=== PATIENT | male | born 1935 | race Caucasian/White ===

== ENCOUNTER 2024-01-14 21:59 | Inpatient (IN) | payer MEDICARE, OTHER ==
--- NOTE | 2024-01-14 22:42 | ED ---
General Adult HPI - General Chief complaint: Shortness of Breath Stated complaint: CHF Time Seen by Provider: 01/14/24 22:25 Source: patient, EMS, RN notes reviewed, old records reviewed Mode of arrival: EMS - History of Present Illness Initial comments: Is a 89-year-old male who presents emergency department as a transfer from [facility] over concern for new onset congestive heart failure. Past medical history includes hypertension, prior CVA, hyper cholesterolemia. Has been having progressive shortness of breath with lower extremity edema and worsening exertional dyspnea for the last 2 months. Worsened over the last few days. Denies any significant orthopnea or PND. Was evaluated at the [place] clinic who sent him to [facility] who diagnosed him with CHF exacerbation. CT of the chest was done to evaluate for PE which was negative for PE. BNP was elevated at the outside facility as well as minimal troponin elevation of 0.08. Presents for further evaluation at this time. Patient denies chest pain. Denies shortness of breath at rest. Does endorse lower extremity edema. Delgado catheter was placed at outside facility and patient initiated on Lasix. He also received aspirin already. Otherwise is resting comfortably in bed at this time. Denies any fevers, cough, chest pain. Presents for further evaluation. - Related Data Allergies Allergy/AdvReac Type Severity Reaction Status Date / Time No Known Allergies Allergy Verified 01/14/24 22:46 Review of Systems ROS Statement: Those systems with pertinent positive or pertinent negative responses have been documented in the HPI. Review of Systems: CONST: Denies fever EYES: Denies blurry vision ENT: Denies nasal congestion C/V: Denies Chest pain RESP: Endorses exertional dyspnea GI: Denies abdominal pain : Denies dysuria SKIN: Denies rash. MSK: Denies joint pain. NEURO: Denies headache ROS Other: All systems not noted in ROS Statement are negative. General Exam - General Exam Comments Initial Comments: General: Appears in no acute distress. HEAD: Normal with no signs of head trauma. EYES: PERRLA, EOMI, conjunctiva normal, no discharge. ENT: Hearing grossly intact, normal oropharynx. RESPIRATORY: Relatively clear breath sounds bilaterally with no obvious rhonchi or wheeze. No significant hypoxia. No significant increased work of breathing. C/V: Regular rate and rhythm. S1 and S2 auscultated, metrical lower extremity pitting edema., peripheral pulses 2+ and intact throughout ABD: Abd is soft, nontender, nondistended EXT: Normal range of motion, no obvious deformity SKIN: No rashes or lesions observed on exposed skin. NEURO: Alert and oriented x 4. Course Vital Signs 01/14/24 01/14/24 22:01 23:06 Temperature 97 F L Pulse Rate 77 72 Respiratory 18 18 Rate Blood Pressure 134/100 136/71 O2 Sat by Pulse 94 L 94 L Oximetry Medical Decision Making - Medical Decision Making Was pt. sent in by a medical professional or institution (, PA, [employer], urgent care, hospital, or [place] health care facility...) When possible be specific @ -Transferred from [facility] ER for cardiology evaluation. Did you speak to anyone other than the patient for history (EMS, parent, family, police, friend...)? What history was obtained from this source @ -No Did you review nursing and triage notes (agree or disagree)? Why? @ -I reviewed and agree with nursing and triage notes Were old charts reviewed (outside hosp., previous admission, EMS record, old EKG, old radiological studies, urgent care reports/EKG's, [place] health [place] facility records)? Report findings @ -Chart reviewed from [facility] including results of workup. CT done at outside facility negative for PE. Does show pulmonary vascular congestion. BNP elevated. Troponin minimally elevated. Differential Diagnosis (chest pain, altered mental status, abdominal pain women, abdominal pain men, vaginal bleeding, weakness, fever, dyspnea, syncope, headache, dizziness, GI bleed, back pain, seizure, CVA, palpatations, mental health, musculoskeletal)? @ -Differential Dyspnea: Coronary syndrome, arrhythmia, tamponade, asthma, COPD, pulmonary embolism, pneumonia, pneumothorax, pulmonary effusion, anaphylaxis, diabetic ketoacidosis, flailed chest, pulmonary contusion, diaphragmatic rupture, anemia, neuromuscular, this is not meant to be an all-inclusive list. EKG interpreted by me (3pts min.). @ -As above X-rays interpreted by me (1pt min.). @ -Chest x-ray shows bilateral pulmonary vascular congestion concerning for CHF CT interpreted by me (1pt min.). @ -None done U/S interpreted by me (1pt. min.). @ -None done What testing was considered but not performed or refused? (CT, X-rays, U/S, labs)? Why? @ -None What meds were considered but not given or refused? Why? @ -Considered aspirin however patient already received 324 mg the other hospital. Did you discuss the management of the patient with other professionals (professionals i.e. , PA, [employer], lab, RT, psych nurse, social service worker, head of merchandise buying, teacher, radio division officer, family caseworker)? Give summary @ -Discussed with the admitting provider Dr. Krueger who accepted the admission. Was smoking cessation discussed for >3mins.? @ -No Was critical care preformed (if so, how long)? @ -No Were there social determinants of health that impacted care today? How? (Homelessness, low income, unemployed, alcoholism, drug addiction, transportation, low edu. Level, literacy, decrease access to med. care, longterm, rehab)? @ -No Was there de-escalation of care discussed even if they declined (Discuss DNR or withdrawal of care, Hospice)? DNR status @ -No What co-morbidities impacted this encounter? (DM, HTN, Smoking, COPD, CAD, Cancer, CVA, ARF, Chemo, Hep., AIDS, mental health diagnosis, sleep apnea, morbid obesity)? @ -None Was patient admitted / discharged? Hospital course, mention meds given and route, prescriptions, significant lab abnormalities, going to OR and other pertinent info. @ -Based on patient's presentation and physical exam, transferred here for CHF that is new onset. I agree with this assessment. We will repeat labs but admit the patient for cardiology evaluation. Labs repeated and revealed elevated BNP of 16,000 as well as elevated troponin of 0.056 likely secondary to CHF. Will c ontinue to trend as patient has no active chest pain. EKG shows no obvious ST segment elevations. Patient already received aspirin. We will continue with IV Lasix administration. Chest x-ray does reveal bilateral pulmonary vascular congestion. Vital signs remained within acceptable limits. He will be admitted at this time. Echo ordered. Cardiology consulted. Will trend the troponin. I spoke with the admitting provider, city call Dr. Krueger who accepted the admission. Undiagnosed new problem with uncertain prognosis? @ -No Drug Therapy requiring intensive monitoring for toxicity (Heparin, Nitro, Insulin, Cardizem)? @ -No Were any procedures done? @ -No Diagnosis/symptom? @ -New onset CHF, elevated troponin Acute, or Chronic, or Acute on Chronic? @ -Acute Uncomplicated (without systemic symptoms) or Complicated (systemic symptoms)? @ -Complicated Side effects of treatment? @ -No Exacerbation, Progression, or Severe Exacerbation? @ -No Poses a threat to life or bodily function? How? (Chest pain, [place], [place], pneumonia, PE, COPD, DKA, ARF, appy, cholecystitis, CVA, Diverticulitis, Homicidal, Suicidal, threat to staff... and all critical care pts) @ -Yes - Lab Data Result diagrams: 01/14/24 22:15 01/14/24 22:15 Lab Results 01/14/24 01/14/24 01/14/24 Range/Units 22:15 22:15 22:15 WBC 8.8 (3.8-10.6) k/uL RBC 4.95 (4.30-5.90) m/uL Hgb 14.9 (13.0-17.5) gm/dL Hct 45.8 (39.0-53.0) % MCV 92.5 (80.0-100.0) fL MCH 30.1 (25.0-35.0) pg MCHC 32.5 (31.0-37.0) g/dL RDW 13.7 (11.5-15.5) % Plt Count 191 (150-450) k/uL MPV 8.9 Neutrophils % 72 % Lymphocytes % 14 % Monocytes % 8 % Eosinophils % 4 % Basophils % 1 % Neutrophils # 6.3 (1.3-7.7) k/uL Lymphocytes # 1.2 (1.0-4.8) k/uL Monocytes # 0.7 (0-1.0) k/uL Eosinophils # 0.4 (0-0.7) k/uL Basophils # 0.1 (0-0.2) k/uL PT 10.9 (10.0-12.5) sec INR 1.0 (<1.2) APTT 23.3 (22.0-30.0) sec Sodium 136 L (137-145) mmol/L Potassium 4.7 (3.5-5.1) mmol/L Chloride 109 H (98-107) mmol/L Carbon Dioxide 18 L (22-30) mmol/L Anion Gap 9 mmol/L BUN 23 H (9-20) mg/dL Creatinine 1.32 H (0.66-1.25) mg/dL Est GFR (CKD-EPI)AfAm 56 (>60 ml/min/1.73 sqM) Est GFR (CKD-EPI)NonAf 48 (>60 ml/min/1.73 sqM) Glucose 100 H (74-99) mg/dL Plasma Lactic Acid Christian (0.7-2.0) mmol/L Calcium 9.3 (8.4-10.2) mg/dL Magnesium 2.0 (1.6-2.3) mg/dL Total Bilirubin 1.3 (0.2-1.3) mg/dL AST 26 (17-59) U/L ALT 16 (4-49) U/L Alkaline Phosphatase 73 (38-126) U/L Troponin I (0.000-0.034) ng/mL NT-Pro-B Natriuret Pep 37718 pg/mL Total Protein 6.8 (6.3-8.2) g/dL Albumin 4.0 (3.5-5.0) g/dL 01/14/24 01/14/24 Range/Units 22:15 22:15 WBC (3.8-10.6) k/uL RBC (4.30-5.90) m/uL Hgb (13.0-17.5) gm/dL Hct (39.0-53.0) % MCV (80.0-100.0) fL MCH (25.0-35.0) pg MCHC (31.0-37.0) g/dL RDW (11.5-15.5) % Plt Count (150-450) k/uL MPV Neutrophils % % Lymphocytes % % Monocytes % % Eosinophils % % Basophils % % Neutrophils # (1.3-7.7) k/uL Lymphocytes # (1.0-4.8) k/uL Monocytes # (0-1.0) k/uL Eosinophils # (0-0.7) k/uL Basophils # (0-0.2) k/uL PT (10.0-12.5) sec INR (<1.2) APTT (22.0-30.0) sec Sodium (137-145) mmol/L Potassium (3.5-5.1) mmol/L Chloride (98-107) mmol/L Carbon Dioxide (22-30) mmol/L Anion Gap mmol/L BUN (9-20) mg/dL Creatinine (0.66-1.25) mg/dL Est GFR (CKD-EPI)AfAm (>60 ml/min/1.73 sqM) Est GFR (CKD-EPI)NonAf (>60 ml/min/1.73 sqM) Glucose (74-99) mg/dL Plasma Lactic Acid Christian 1.4 (0.7-2.0) mmol/L Calcium (8.4-10.2) mg/dL Magnesium (1.6-2.3) mg/dL Total Bilirubin (0.2-1.3) mg/dL AST (17-59) U/L ALT (4-49) U/L Alkaline Phosphatase (38-126) U/L Troponin I 0.056 H* (0.000-0.034) ng/mL NT-Pro-B Natriuret Pep pg/mL Total Protein (6.3-8.2) g/dL Albumin (3.5-5.0) g/dL - EKG Data -: EKG Interpreted by Me EKG Comments: 12-lead Electrocardiogram Interpretation Note EKG was reviewed and interpreted by myself. 12-lead ECG performed at 2205 is interpreted by me as revealing normal sinus rhythm at a rate of 77 beats per minute. Mccl[place] is normal. [place] interval is 195 ms, QRS duration is 114 ms, QTc is 396 ms. T wave inversion seen in leads II, III, aVF. Nonspecific ST segment Amryt malady also seen in the lateral precordial leads. [facility]... R wave progression across the precordium was satisfactory. Disposition Clinical Impression: Congestive heart failure, Elevated troponin Disposition: ADMITTED IP TO THIS HOSP Condition: Stable Referrals: Sue Mosqeura, PAC [Primary Care Provider] - 1-2 days Time of Disposition: 23:00
[2024-01-14 23:04] LABS: ALT 16 U/L (4-49); AST 26 U/L (17-59); African American GFR (CKD) 56 (>60 ml/min/1.73 sqM); Alkaline Phosphatase 73 U/L (38-126); Anion Gap 9 mmol/L; Blood Urea Nitrogen 23 mg/dL (9-20); Calcium 9.3 mg/dL (8.4-10.2); Carbon Dioxide 18 mmol/L (22-30); Chloride 109 mmol/L (98-107); Glucose 100 mg/dL (74-99); Non-African American GFR(CKD) 48 (>60 ml/min/1.73 sqM); Potassium 4.7 mmol/L (3.5-5.1); Sodium 136 mmol/L (137-145); Total Bilirubin 1.3 mg/dL (0.2-1.3); Total Protein 6.8 g/dL (6.3-8.2)
[2024-01-14] MEDS: FUROSEMIDE 10 MG/ML 4 ML VIAL IV SCH (23:04)
[2024-01-14 23:12] LABS: NT-Pro-B-Type Natriuretic Pept 16800 pg/mL
[2024-01-14] MEDS ORDERED: NALOXONE 0.4 MG/ML 1 ML VIAL IV PRN (23:38)
[2024-01-14 23:40] LABS: Basophils # (A) 0.1 k/uL (0-0.2); Basophils % (A) 1 %; Eosinophils # (A) 0.4 k/uL (0-0.7); Eosinophils % (A) 4 %; HCT 45.8 % (39.0-53.0); HGB 14.9 gm/dL (13.0-17.5); Lymphocytes # (A) 1.2 k/uL (1.0-4.8); Lymphocytes % (A) 14 %; MCH 30.1 pg (25.0-35.0); MCHC 32.5 g/dL (31.0-37.0); MCV 92.5 fL (80.0-100.0); Mean Platelet Volume 8.9; Monocytes # (A) 0.7 k/uL (0-1.0); Monocytes % (A) 8 %; Neutrophils # (A) 6.3 k/uL (1.3-7.7); Neutrophils % (A) 72 %; Platelet Count 191 k/uL (150-450); RBC 4.95 m/uL (4.30-5.90); RDW 13.7 % (11.5-15.5); WBC 8.8 k/uL (3.8-10.6)
[2024-01-14 23:54] LABS: Partial Thromboplastin Time 23.3 sec (22.0-30.0); Prothrombin Time 10.9 sec (10.0-12.5)
[2024-01-15] MEDS ORDERED: NALOXONE 0.4 MG/ML 1 ML VIAL IV PRN (00:05)
--- NOTE | 2024-01-15 00:50 | XR ---
EXAM: XR Chest, 1 View CLINICAL HISTORY: XR Reason: dyspnea TECHNIQUE: Frontal view of the chest. COMPARISON: Chest x-ray from January 14, 2024 at [address] from January 14, 2024 at 1856 hrs. FINDINGS: Lungs: Unremarkable. No consolidation. Pleural space: Prominent central vascular and interstitial markings suggesting mild edema. There are trace left and small right pleural effusions. No pneumothorax is seen. Heart: Moderate cardiomegaly. Mediastinum: Unremarkable. Normal mediastinal contour. Bones/joints: Unremarkable. No acute fracture. IMPRESSION: 1. Prominent central vascular and interstitial markings suggesting mild edema. There are trace left and small right pleural effusions. No pneumothorax is seen. 2. Moderate cardiomegaly.
[2024-01-15 03:19] LABS: Basophils # (A) 0.1 k/uL (0-0.2); Basophils % (A) 1 %; Eosinophils # (A) 0.4 k/uL (0-0.7); Eosinophils % (A) 5 %; HCT 45.6 % (39.0-53.0); HGB 14.4 gm/dL (13.0-17.5); Lymphocytes # (A) 1.3 k/uL (1.0-4.8); Lymphocytes % (A) 15 %; MCH 29.3 pg (25.0-35.0); MCHC 31.7 g/dL (31.0-37.0); MCV 92.7 fL (80.0-100.0); Mean Platelet Volume 8.8; Monocytes # (A) 0.8 k/uL (0-1.0); Monocytes % (A) 9 %; Neutrophils % (A) 68 %; Platelet Count 211 k/uL (150-450); RBC 4.92 m/uL (4.30-5.90); WBC 8.8 k/uL (3.8-10.6)
[2024-01-15 03:36] LABS: ALT 16 U/L (4-49); AST 24 U/L (17-59); African American GFR (CKD) 56 (>60 ml/min/1.73 sqM); Alkaline Phosphatase 74 U/L (38-126); Anion Gap 10 mmol/L; Blood Urea Nitrogen 23 mg/dL (9-20); Calcium 9.5 mg/dL (8.4-10.2); Carbon Dioxide 18 mmol/L (22-30); Chloride 108 mmol/L (98-107); Glucose 97 mg/dL (74-99); Non-African American GFR(CKD) 48 (>60 ml/min/1.73 sqM); Potassium 4.2 mmol/L (3.5-5.1); Sodium 136 mmol/L (137-145); Total Bilirubin 1.6 mg/dL (0.2-1.3); Total Protein 6.8 g/dL (6.3-8.2)
--- NOTE | 2024-01-15 03:49 | P.HPIM ---
History of Present Illness H&P Date: 01/14/24 Patient is a 89-year-old male with a PMH of hypertension and hyperlipidemia who was transferred from [facility] where he was sent to from the [place] clinic with complaints of shortness of breath and lower extremity edema. The patient was accompanied by his daughter and at the bedside who supplemented the story. Patient notes that over the past 2 months, he has been experiencing gradually worsening lower extremity edema and worsening exertional dyspnea. Notes that he now gets winded with even walking a few steps. Denies experiencing chest discomfort, cough, fever, chills, nausea, vomiting, abdominal pain, diarrhea. Chest x-ray in the emergency room revealed findings consistent with CHF. EKG revealed sinus rhythm at 77 bpm with diffuse T wave inversions and biphasic T waves as reviewed by me. Laboratory evaluation was remarkable for sodium 136, chloride 108, CO2 18, BUN 23, creatinine 1.33, total bilirubin 1.6, and troponin 0.056 with proBNP 16,800. ED documentation reviewed and case discussed with ED provider. Review of systems: Pertinent positives and negatives as discussed in HPI, a complete review of systems was performed and all other systems are negative. Physical examination: Vital signs reviewed General: non toxic, no distress, appears at stated age, overweight Derm: no unusual rashes/lesions, warm Head: atraumatic, normocephalic, symmetric Eyes: EOMI, no lid lag, anicteric sclera, pupils equal round reactive to light ENT: Nose and ears atraumatic Neck: No cervical lymphadenopathy, trachea midline, supple Mouth: no lip lesion, mucus membranes moist Cardiovascular: S1S2 reg, no murmur, positive dorsalis pedis pulse bilateral, 2+ bilateral lower extremity pitting edema Lungs: CTA bilateral, no rhonchi, no rales, no accessory muscle use Abdominal: soft, nontender to palpation, no guarding Ext: muscle strength 5 out of 5 in all 4 extremities grossly, no gross muscle atrophy, no contractures, Neuro: CN II-XI grossly intact, no gross focal neuro deficits Psych: Alert, oriented, appropriate affect Assessment: Fluid overload, likely newly diagnosed CHF exacerbation Kidney disease, acute versus chronic Elevated troponin, likely due to ongoing CHF exacerbation Chronic conditions: Hypertension, hyperlipidemia Imaging: Chest x-ray in the emergency room revealed findings consistent with CHF. EKG revealed sinus rhythm at 77 bpm with diffuse T wave inversions and biphasic T waves as reviewed by me. Data Review: Laboratory evaluation was remarkable for sodium 136, chloride 108, CO2 18, BUN 23, creatinine 1.33, total bilirubin 1.6, and troponin 0.056 with proBNP 16,800. Plan: Continue with Lasix 40 mg IV every 8 hourly Follow-up echocardiogram Intake and output Daily weights Fluid restriction Cardiology consulted Cardiac monitoring Monitor electrolytes daily Monitor BMP Resume home medications once reconciled DVT prophylaxis: Heparin subcu The patient is admitted with an anticipated greater than 2 midnight stay for evaluation of CHF CODE STATUS: Full Code Discussed with: Patient Anticipated discharge place: Home Past Medical History - Past Family History Mother Family Medical History: Hyperlipidemia Medications and Allergies Allergies Allergy/AdvReac Type Severity Reaction Status Date / Time No Known Allergies Allergy Verified 01/14/24 22:46 Physical Exam Vitals: Vital Signs Temp Pulse Resp BP Pulse Ox 01/15/24 00:52 73 16 129/78 92 L 01/14/24 23:06 72 18 136/71 94 L 01/14/24 22:01 97 F L 77 18 134/100 94 L Intake and Output 01/14/24 01/14/24 01/15/24 14:59 22:59 06:59 Other: Weight 97.069 kg Results CBC & Chem 7: 01/15/24 02:50 01/15/24 02:50 Labs: Abnormal Lab Results - Last 24 Hours (Table) 01/14/24 01/14/24 01/15/24 Range/Units 22:15 22:15 02:50 Sodium 136 L 136 L (137-145) mmol/L Chloride 109 H 108 H (98-107) mmol/L Carbon Dioxide 18 L 18 L (22-30) mmol/L BUN 23 H 23 H (9-20) mg/dL Creatinine 1.32 H 1.33 H (0.66-1.25) mg/dL Glucose 100 H (74-99) mg/dL Total Bilirubin 1.6 H (0.2-1.3) mg/dL Troponin I 0.056 H* (0.000-0.034) ng/mL
[2024-01-15] MEDS: ASPIRIN 325 MG TAB PO SCH (08:48)
[2024-01-15] MEDS: ATORVASTATIN 40 MG TAB PO SCH (08:48)
[2024-01-15] MEDS: allopurinoL 100 MG TAB PO SCH (08:48)
[2024-01-15] MEDS: HEPARIN SODIUM,PORCINE 5,000 UNIT/ML 1 ML VIAL SQ SCH (08:49)
[2024-01-15] MEDS ORDERED: LOSARTAN 50 MG TAB PO SCH (09:00)
--- NOTE | 2024-01-15 09:05 | US ---
EXAMINATION TYPE: US renals and bladder DATE OF EXAM: 01/15/2024 COMPARISON: NONE CLINICAL INDICATION: Male, 89 years old with history of MINDY; mindy EXAM MEASUREMENTS: Right Kidney: 9.3 x 4.0 x 3.9 cm Left Kidney: 10.1 x 4.6 x 4.2 cm Incidental finding anechoic area seen in liver measuring 3.3 x 2.8 x 3.3 cm. Right Kidney: Cortical thinning atrophic Left Kidney: No hydronephrosis or masses seen Bladder: Cather in There is no evidence for hydronephrosis at this point in time. No nephrolithiasis is seen. No april s are identified. The urinary bladder is anechoic. Bilateral ureteral jets are seen. IMPRESSION: 1. Renal cortical thinning and atrophic change. 2. Simple cyst within the liver.
--- NOTE | 2024-01-15 11:41 | P.PN ---
Subjective Progress Note Date: 01/15/24 89-year-old male with a PMH of hypertension and hyperlipidemia who was transferred from [facility] where he was sent to from the [place] clinic with complaints of shortness of breath and lower extremity edema. Chest x-ray in the emergency room revealed findings consistent with CHF. EKG revealed sinus rhythm at 77 bpm with diffuse T wave inversions and biphasic T waves. Laboratory evaluation was remarkable for sodium 136, chloride 108, CO2 18, BUN 23, creatinine 1.33, total bilirubin 1.6, and troponin 0.056 with proBNP 16,800. Patient was started on Lasix and admitted for CHF exacerbation. 01/14 Patient was seen and examined. Breathing better. Maintained on Lasix 40 mg IV TID. Output 1900 cc so far. CBC unremarkable. CMP Na 136, Cl 108, bicarb 18, BUN 23, Cr 1.33, T. Bili 1.6. Troponin 0.061. General: non toxic, no distress, appears at stated age Derm: warm, dry Head: atraumatic, normocephalic, symmetric Eyes: EOMI, no lid lag, anicteric sclera Mouth: no lip lesion, mucus membranes moist Cardiovascular: S1S2 reg, no murmur, positive posterior tibial pulse bilateral, Lungs: CTA bilateral, no rhonchi, no rales , no accessory muscle use Ext: no gross muscle atrophy, 2+ edema, no contractures Neuro: no focal neuro deficits Psych: Alert, oriented, appropriate affect Based on my assessment of this patient, this patient meets a high complexity level of care. CHF exacerbation unknown EF: Lasix 40 mg IV TID. Echo ordered. Cardiology consulted. Monitor electrolytes and renal function. MINDY: Likely on CKD with no baseline. Obtain renal bladder US. Hold Losartan. Troponin elevation: Flat. ACS ruld out. Likely leak from CHF. Hypertension: Hold Losartan for now. Monitor vitals and adjust medications as necessary. CODE STATUS: FULL CODE DVT Prophylaxis: Heparin SQ GI Prophylaxis: Protonix PO Designated medical POA if patient is not able to make medical decisions for themselves: I have reviewed the following database consultant notes: I have reviewed the results of the following tests: CBC, CMP, Trop. I have ordered the following tests: Echo pending. Renal US ordered. I have discussed the care of this patient with the following independent historian: I have independently interpreted the following test below: I have discussed the management of this patient with the following physician: This patient has a high risk of morbidity due to the following reasons: Patient requires IV lasix which requires intensive monitoring for renal toxicity. Objective - Vital Signs Vital signs: Vital Signs Temp 97 F L 01/14/24 22:01 Pulse 70 01/15/24 06:00 Resp 22 01/15/24 06:00 BP 134/69 01/15/24 06:00 Pulse Ox 96 01/15/24 06:00 FiO2 Intake & Output 01/14/24 01/15/24 01/15/24 18:59 06:59 18:59 Output Total 1900 Balance -1900 Weight 97.069 kg Output: Urine 1900 - Labs CBC & Chem 7: 01/15/24 02:50 01/15/24 02:50 Labs: Abnormal Lab Results - Last 24 Hours (Table) 01/14/24 01/14/24 01/15/24 Range/Units 22:15 22:15 02:50 Sodium 136 L 136 L (137-145) mmol/L Chloride 109 H 108 H (98-107) mmol/L Carbon Dioxide 18 L 18 L (22-30) mmol/L BUN 23 H 23 H (9-20) mg/dL Creatinine 1.32 H 1.33 H (0.66-1.25) mg/dL Glucose 100 H (74-99) mg/dL Total Bilirubin 1.6 H (0.2-1.3) mg/dL Troponin I 0.056 H* (0.000-0.034) ng/mL 01/15/24 Range/Units 02:50 Sodium (137-145) mmol/L Chloride (98-107) mmol/L Carbon Dioxide (22-30) mmol/L BUN (9-20) mg/dL Creatinine (0.66-1.25) mg/dL Glucose (74-99) mg/dL Total Bilirubin (0.2-1.3) mg/dL Troponin I 0.061 H* (0.000-0.034) ng/mL
--- NOTE | 2024-01-15 13:05 | CA ---
Transthoracic Echo Report Name: Kar Hernandez Age: 89 Gender: M : 1935 Exam Date: 01/15/2024 10:15 Exam Location: [place] [facility] Echo Ht (in): 72 Wt (lb): 214 Ordering Physician: Pa Pemberton MD Attending/Referring Phys: Coat Check Attendant Yumiko Crowell RDCS Procedure CPT: Indications: chf Cardiac Hx: Technical Quality: Fair Contrast 1: Definity Total Dose (mL): 2 Contrast 2: Total Dose (mL): MEASUREMENTS (Male / Female) Normal Values 2D ECHO LV Diastolic Diameter PLAX 6.5 cm 4.2 - 5.9 / 3.9 - 5.3 cm LV Systolic Diameter PLAX 5.6 cm IVS Diastolic Thickness 1.2 cm 0.6 - 1.0 / 0.6 - 0.9 cm LVPW Diastolic Thickness 1.2 cm 0.6 - 1.0 / 0.6 - 0.9 cm LV Relative Wall Thickness 0.4 RV Internal Dim ED PLAX 1.4 cm LA Systolic Diameter LX 4.9 cm 3.0 - 4.0 / 2.7 - 3.8 cm LV Diastolic Volume MOD BP 221.7 cm??? 67 - 155 / 56 - 104 cm??? LV Systolic Volume MOD BP 156.0 cm??? 22 - 58 / 19 - 49 cm??? LV Ejection Fraction MOD BP 29.6 % >= 55 % LV Cardiac Index MOD BP 2081.5 cm???/min???m??? LV Diastolic Volume MOD 4C 225.6 cm??? LV Systolic Volume MOD 4C 172.5 cm??? LV Ejection Fraction MOD 4C 23.5 % LV Cardiac Index MOD 4C 1681.1 cm???/min???m??? LV Diastolic Length 4C 8.8 cm LV Systolic Length 4C 9.0 cm LV Diastolic Volume MOD 2C 199.6 cm??? LV Systolic Volume MOD 2C 155.5 cm??? LV Ejection Fraction MOD 2C 22.1 % LV Cardiac Index MOD 2C 1395.6 cm???/min???m??? LV Diastolic Length 2C 9.9 cm LV Systolic Length 2C 9.9 cm LA Volume 97.1 cm??? 18 - 58 / 22 - 52 cm??? LA Volume Index 43.4 cm???/m??? 16 - 28 cm???/m??? M-MODE Aortic Root Diameter MM 4.1 cm LA Systolic Diameter MM 4.5 cm LA Ao Ratio MM 1.1 AV Cusp Separation MM 1.6 cm DOPPLER AV Peak Velocity 200.4 cm/s AV Peak Gradient 16.1 mmHg AV Mean Velocity 137.2 cm/s AV Mean Gradient 8.3 mmHg AV Velocity Time Integral 39.9 cm AI Peak Velocity 336.9 cm/s AI Peak Gradient 45.4 mmHg AI Pressure Half Time 634.0 ms LVOT Peak Velocity 73.2 cm/s LVOT Peak Gradient 2.1 mmHg LVOT Velocity Time Integral 14.1 cm MV Area PHT 2.5 cm??? Mitral E Point Velocity 86.4 cm/s Mitral A Point Velocity 95.1 cm/s Mitral E to A Ratio 0.9 MV Deceleration Time 305.7 ms FINDINGS Left Ventricle Left ventricular ejection fraction is estimated at 20-25 %. Mildly increased septal wall thickness. Moderately increased left ventricular diastolic diameter. Severely increased left ventricular diastolic volume. Severely increased left ventricular systolic volume. Severely decreased left ventricular ejection fraction. Severely reduced global left ventricular systolic function. Right Ventricle Normal right ventricular size and function. Right ventricular systolic pressure within normal limits. Right Atrium Mild right atrial dilatation. Left Atrium Moderately increased left atrial diameter. Severely increased left atrial volume. Mildly increased left atrial area. Mitral Valve Structurally normal mitral valve. Mild to moderate mitral regurgitation. Aortic Valve Mild aortic stenosis with a peak gradient of 16mmHg and a mean gradient of 8mmHg. Mild aortic regurgitation. Tricuspid Valve Structurally normal tricuspid valve. Mild tricuspid regurgitation. Pulmonic Valve Structurally normal pulmonic valve. Trace pulmonic regurgitation. No pulmonic stenosis. Pericardium No pericardial or pleural effusion. Aorta Mildly dilated aortic annulus. 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 Gerald Price MD (Electronically Signed) Final Date: 15 January 2024 13:04
--- NOTE | 2024-01-15 15:16 | P.CRDCN ---
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 We have been asked to evaluate the patient for new onset of CHF. Patient states he has had shortness of breath for the past 3 to 4 months and gradually worsening. He is also had lower extremity edema. He sleeps on 1 pillow. He denies any dizziness. No syncopal episodes. No chest pain or pressure. He has an occasional cough. No fever or wheezing. No nausea or vomiting. No blood in his stools. He denies history of diabetes. He states he quit smoking 43 years ago. He states he is fairly active as he usually mows his own lawn. He states that now he walks 6 feet and he is shortness of breath and has to stop. He denies any known history of chronic kidney disease. Patient is seen today in the emergency center waiting for a bed on the cardiac stepdown unit. EKG: Sinus rhythm with nonspecific ST changes. Chest x-ray: Prominent central vascular and interstitial markings suggest mild edema. Trace left and small right pleural effusions. No pneumothorax. Moderate cardiomegaly. Renal ultrasound: Renal cortical thinning and atrophy. Simple cyst within the liver. Laboratory studies: CBC unremarkable. Sodium 136, potassium 4.2, BUN 23 creatinine 1.33. Troponin 0.056, 0.061, 0.070. Home cardiac medications: Aspirin 325 mg daily, losartan 100 mg daily, Lipitor 40 mg daily. Review Of Systems: At the time of my exam: CONSTITUTIONAL: Denies fever or chills. HEENT: Denies blurred vision, vision changes, or eye pain. Denies hemoptysis CARDIOVASCULAR: Denies chest pain. Denies orthopnea. Denies PND. Denies palp itations RESPIRATORY: Reports dyspnea on exertion, reports shortness of breath. GASTROINTESTINAL: Denies abdominal pain. Denies nausea or vomiting. HEMATOLOGIC: Denies bleeding disorders. GENITOURINARY: Denies any blood in urine. SKIN: Denies puritis. Denies rash. Physical examination: Gen: This is an 89-year-old male in no acute distress VS: reviewed HEENT: Head is atraumatic, normocephalic. Pupils equal, round. Sclerae is anicteric. NECK: Supple. No JVD. LUNGS: Crackles to the bases bilaterally. No intercostal retractions. HEART: Regular rate and rhythm. Systolic murmur. ABDOMEN: Soft No tenderness. EXTREMITIES: Minimal edema left lower extremities. No calf tenderness. NEUROLOGICAL: Patient is awake, alert and oriented x3. Assessment: Mildly elevated troponins of unclear significance, doubt ischemic most likely a type II non-ST elevated [place] due to heart failure Acute heart failure, undetermined type Hypertension Hyperlipidemia History of CVA 6 years ago Plan: Resume aspirin 81 mg daily, atorvastatin 40 mg daily Start patient on Lasix 40 mg daily Monitor CAM, daily weights, electrolytes and renal function Obtain 2-D echocardiogram and Doppler study to assess cardiac structure and function Further recommendations to follow based upon clinical course Thank you kindly for this consultation. Nurse practitioner note has been reviewed, I agree with documented findings and plan of care. Patient was seen and examined. Past Medical History - Past Family History Mother Family Medical History: Hyperlipidemia Medications and Allergies Home Medications Medication Instructions Recorded Confirmed Type Aspirin 325 mg PO DAILY 01/15/24 01/15/24 History Atorvastatin [Lipitor] 40 mg PO DAILY 01/15/24 01/15/24 History Febuxostat [Uloric] 40 mg PO DAILY 01/15/24 01/15/24 History Losartan Potassium [Cozaar] 100 mg PO DAILY 01/15/24 01/15/24 History Allergies Allergy/AdvReac Type Severity Reaction Status Date / Time No Known Allergies Allergy Verified 01/14/24 22:46 Physical Exam Vitals: Vital Signs Temp Pulse Resp BP Pulse Ox 01/15/24 06:00 70 22 134/69 96 01/15/24 04:00 71 16 134/71 93 L 01/15/24 02:00 71 20 129/71 96 01/15/24 00:52 73 16 129/78 92 L 01/14/24 23:06 72 18 136/71 94 L 01/14/24 22:01 97 F L 77 18 134/100 94 L Intake and Output 01/14/24 01/15/24 01/15/24 22:59 06:59 14:59 Output Total 1900 Balance -1900 Output: Urine 1900 Other: Weight 97.069 kg Results 01/15/24 02:50 01/15/24 02:50 Cardiac Enzymes 01/14/24 01/14/24 01/15/24 Range/Units 22:15 22:15 02:50 AST 26 24 (17-59) U/L Troponin I 0.056 H* (0.000-0.034) ng/mL 01/15/24 Range/Units 02:50 AST (17-59) U/L Troponin I 0.061 H* (0.000-0.034) ng/mL Coagulation 01/14/24 Range/Units 22:15 PT 10.9 (10.0-12.5) sec APTT 23.3 (22.0-30.0) sec CBC 01/14/24 01/15/24 Range/Units 22:15 02:50 WBC 8.8 8.8 (3.8-10.6) k/uL RBC 4.95 4.92 (4.30-5.90) m/uL Hgb 14.9 14.4 (13.0-17.5) gm/dL Hct 45.8 45.6 (39.0-53.0) % Plt Count 191 211 (150-450) k/uL Comprehensive Metabolic Panel 01/14/24 01/15/24 Range/Units 22:15 02:50 Sodium 136 L 136 L (137-145) mmol/L Potassium 4.7 4.2 (3.5-5.1) mmol/L Chloride 109 H 108 H (98-107) mmol/L Carbon Dioxide 18 L 18 L (22-30) mmol/L BUN 23 H 23 H (9-20) mg/dL Creatinine 1.32 H 1.33 H (0.66-1.25) mg/dL Glucose 100 H 97 (74-99) mg/dL Calcium 9.3 9.5 (8.4-10.2) mg/dL AST 26 24 (17-59) U/L ALT 16 16 (4-49) U/L Alkaline Phosphatase 73 74 (38-126) U/L Total Protein 6.8 6.8 (6.3-8.2) g/dL Albumin 4.0 4.0 (3.5-5.0) g/dL Current Medications Generic Name Dose Route Start Last Admin Trade Name Freq PRN Reason Stop Dose Admin Allopurinol 200 mg 01/15/24 09:00 01/15/24 08:48 Allopurinol 100 Mg Tab PO 200 mg DAILY NONA Administration Aspirin 325 mg 01/15/24 09:00 01/15/24 08:48 Aspirin 325 Mg Tab PO 325 mg DAILY NONA Administration Atorvastatin Calcium 40 mg 01/15/24 09:00 01/15/24 08:48 Atorvastatin 40 Mg Tab PO 40 mg DAILY NONA Administration Furosemide 40 mg 01/15/24 00:00 01/15/24 08:48 Furosemide 10 Mg/Ml 4 Ml Vial IV 40 mg Q8HR NONA Administration Heparin Sodium (Porcine) 5,000 unit 01/15/24 09:00 01/15/24 08:49 Heparin Sodium,Porcine 5,000 Unit/Ml 1 Ml Vial SQ 5,000 unit Q12HR NONA Administration Naloxone HCl 0.2 mg 01/14/24 23:38 Naloxone 0.4 Mg/Ml 1 Ml Vial IV Q2M PRN Opioid Reversal Naloxone HCl 0.2 mg 01/15/24 00:05 Naloxone 0.4 Mg/Ml 1 Ml Vial IV Q2M PRN Opioid Reversal Pantoprazole Sodium 40 mg 01/16/24 07:30 Pantoprazole 40 Mg Tablet PO [id number] NONA Intake and Output 01/14/24 01/15/24 01/15/24 22:59 06:59 14:59 Output Total 1900 Balance -1900 Output: Urine 1900 Other: Weight 97.069 kg 01/15/24 02:50 01/15/24 02:50
[2024-01-16] MEDS: PANTOPRAZOLE 40 MG TABLET PO SCH (06:32)
[2024-01-16] MEDS: ASPIRIN 81 MG PO SCH (09:08)
[2024-01-16 09:29] LABS: African American GFR (CKD) 50 (>60 ml/min/1.73 sqM); Anion Gap 11 mmol/L; Blood Urea Nitrogen 26 mg/dL (9-20); Carbon Dioxide 24 mmol/L (22-30); Chloride 99 mmol/L (98-107); Glucose 123 mg/dL (74-99); Non-African American GFR(CKD) 43 (>60 ml/min/1.73 sqM); Potassium 3.9 mmol/L (3.5-5.1); Sodium 134 mmol/L (137-145)
--- NOTE | 2024-01-16 15:16 | P.PN ---
Subjective Progress Note Date: 01/16/24 89-year-old male with a PMH of hypertension and hyperlipidemia who was transferred from [facility] where he was sent to from the [place] clinic with complaints of shortness of breath and lower extremity edema. Chest x-ray in the emergency room revealed findings consistent with CHF. EKG revealed sinus rhythm at 77 bpm with diffuse T wave inversions and biphasic T waves. Laboratory evaluation was remarkable for sodium 136, chloride 108, CO2 18, BUN 23, creatinine 1.33, total bilirubin 1.6, and troponin 0.056 with proBNP 16,800. Patient was started on Lasix and admitted for CHF exacerbation. 01/14 Patient was seen and examined. Breathing better. Maintained on Lasix 40 mg IV TID. Output 1900 cc so far. CBC unremarkable. CMP Na 136, Cl 108, bicarb 18, BUN 23, Cr 1.33, T. Bili 1.6. Troponin 0.061. 01/15 Patient was seen and examined. Breathing back to baseline. Urine output 5800 cc. BMP Na 134, BUN 26, Cr 1.44, glu 123. Echo shows EF20-25%. Renal US shows atrophic change of the kidney. Discussed with Mandi MADISON, transition lasix IV to PO, likely discharge tomorrow. General: non toxic, no distress, appears at stated age Derm: warm, dry Head: atraumatic, normocephalic, symmetric Eyes: EOMI, no lid lag, anicteric sclera Mouth: no lip lesion, mucus membranes moist Cardiovascular: S1S2 reg, no murmur Lungs: CTA bilateral, no rhonchi, no rales , no accessory muscle use Ext: no gross muscle atrophy, 2+ edema, no contractures Neuro: no focal neuro deficits Psych: Alert, oriented, appropriate affect Based on my assessment of this patient, this patient meets a high complexity le vanda of care. CHF exacerbation unknown EF: Lasix discontinued by Cardiology. Echo as above. Would likely benefit from ACEi and beta karly defer decision to Cardiology. Cardiology consulted. Monitor electrolytes and renal function. MINDY: Likely on CKD with no baseline. Renal bladder US as above. Hold Losartan. Troponin elevation: Flat. ACS ruld out. Likely leak from CHF. Hypertension: Hold Losartan for now. Monitor vitals and adjust medications as necessary. CODE STATUS: FULL CODE DVT Prophylaxis: Heparin SQ GI Prophylaxis: Protonix PO Designated medical POA if patient is not able to make medical decisions for themselves: I have reviewed the following hr business partner consultant notes: Cardiology I have reviewed the results of the following tests: BMP, Renal US, Echo. I have ordered the following tests: BMP. I have discussed the care of this patient with the following independent historian: WILMAR. I have independently interpreted the following test below: I have discussed the management of this patient with the following physician: Mandi MADISON as above. Objective - Vital Signs Vital signs: Vital Signs Temp 97.8 F 01/16/24 15:04 Pulse 70 01/16/24 15:04 Resp 16 01/16/24 15:04 BP 101/57 01/16/24 15:04 Pulse Ox 97 01/16/24 15:04 FiO2 Intake & Output 01/15/24 01/16/24 01/16/24 18:59 06:59 18:59 Intake Total 240 Output Total 4050 1750 450 Balance -4050 -1750 -210 Weight 97.069 kg 91 kg Intake: Oral 240 Output: Urine 4050 1750 450 Other: Voiding Method Indwelling Catheter Indwelling Catheter Urinal # Voids 1 # Bowel Movements 1 - Labs CBC & Chem 7: 01/15/24 02:50 01/16/24 07:47 Labs: Abnormal Lab Results - Last 24 Hours (Table) 01/16/24 Range/Units 07:47 Sodium 134 L (137-145) mmol/L BUN 26 H (9-20) mg/dL Creatinine 1.44 H (0.66-1.25) mg/dL Glucose 123 H (74-99) mg/dL
--- NOTE | 2024-01-16 15:31 | P.PN ---
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 We have been asked to evaluate the patient for new onset of CHF. Patient states he has had shortness of breath for the past 3 to 4 months and gradually worsening. He is also had lower extremity edema. He sleeps on 1 pillow. He denies any dizziness. No syncopal episodes. No chest pain or pressure. He has an occasional cough. No fever or wheezing. No nausea or vomiting. No blood in his stools. He denies history of diabetes. He states he quit smoking 43 years ago. He states he is fairly active as he usually mows his own lawn. He states that now he walks 6 feet and he is shortness of breath and has to stop. He denies any known history of chronic kidney disease. Patient is seen today in the emergency center waiting for a bed on the cardiac stepdown unit. EKG: Sinus rhythm with nonspecific ST changes. Chest x-ray: Prominent central vascular and interstitial markings suggest mild edema. Trace left and small right pleural effusions. No pneumothorax. Moderate cardiomegaly. Renal ultrasound: Renal cortical thinning and atrophy. Simple cyst within the liver. Laboratory studies: CBC unremarkable. Sodium 136, potassium 4.2, BUN 23 creatinine 1.33. Troponin 0.056, 0.061, 0.070. Home cardiac medications: Aspirin 325 mg daily, losartan 100 mg daily, Lipitor 40 mg daily. 01/15 Patient states that today he is feeling much better from yesterday. He denies having any chest pain. He is currently on IV Lasix 40 mg every 8 hours. Patient has a negative fluid balance and documented weight loss. Repeat blood work reveals BUN of 26 creatinine 1.44, sodium 134 and potassium 3.9. Blood pressure 117/65, heart rate 77, pulse ox 94% on room air. Echocardiogram reveals EF of 20 to 25% with global hypokinesia. Mild to moderate mitral regurgitation. Aortic sclerosis with mild aortic regurgitation. Discussed option of cardiac catheterization with the patient. Physical examination: Gen: This is an 89-year-old male in no acute distress VS: reviewed HEENT: Head is atraumatic, normocephalic. Pupils equal, round. Sclerae is anicteric. NECK: Supple. No JVD. LUNGS: Crackles to the bases bilaterally. No intercostal retractions. HEART: Regular rate and rhythm. Systolic murmur. ABDOMEN: Soft No tenderness. EXTREMITIES: No edema lower extremities. No calf tenderness. NEUROLOGICAL: Patient is awake, alert and oriented x3. Assessment: Mildly elevated troponins of unclear significance, doubt ischemic most likely a type II non-ST elevated [place] due to heart failure Acute heart failure, undetermined type Hypertension Hyperlipidemia History of CVA 6 years ago Plan: Continue aspirin 81 mg daily, atorvastatin 40 mg daily Transition IV Lasix to oral 40 mg daily Start patient on Toprol XL 25 mg daily and Farxiga 10 mg daily Monitor CAM, daily weights, electrolytes and renal function Depending on kidney function tomorrow, may start patient on DURAN inhibitor or ARB. Discussed option of cardiac catheterization which may be considered tomorrow or as an outpatient. Make patient n.p.o. at midnight just in case he is ready for cardiac catheterization. Further recommendations to follow based upon clinical course Nurse practitioner note has been reviewed, I agree with documented findings and plan of care. Patient was seen and examined. Objective - Vital Signs Vital signs: Vital Signs Temp 97.5 F L 01/16/24 08:00 Pulse 77 01/16/24 11:47 Resp 18 01/16/24 11:47 BP 117/65 01/16/24 11:47 Pulse Ox 94 L 01/16/24 11:47 FiO2 Intake & Output 01/15/24 01/16/24 01/16/24 18:59 06:59 18:59 Intake Total 240 Output Total 4050 1750 250 Balance -4050 -1750 -10 Weight 97.069 kg 91 kg Intake: Oral 240 Output: Urine 4050 1750 250 Other: Voiding Method Indwelling Catheter Indwelling Catheter Urinal # Voids 1 - Labs CBC & Chem 7: 01/15/24 02:50 01/16/24 07:47 Labs: Abnormal Lab Results - Last 24 Hours (Table) 01/16/24 Range/Units 07:47 Sodium 134 L (137-145) mmol/L BUN 26 H (9-20) mg/dL Creatinine 1.44 H (0.66-1.25) mg/dL Glucose 123 H (74-99) mg/dL
[2024-01-16] MEDS: DAPAGLIFLOZIN PROPANEDIOL 10 MG TABLET PO SCH (15:38)
[2024-01-16] MEDS: METOPROLOL SUCCINATE (ER) 25 MG TAB.ER.24H PO SCH (15:38)
[2024-01-17] MEDS: FUROSEMIDE 40 MG TAB PO SCH (08:05)
[2024-01-17] MEDS: SACUBITRIL/VALSARTAN 24 MG-26 MG TABLET PO SCH (09:23)
[2024-01-17 09:50] LABS: NT-Pro-B-Type Natriuretic Pept 9190 pg/mL
[2024-01-17 09:56] LABS: African American GFR (CKD) 47 (>60 ml/min/1.73 sqM); Anion Gap 9 mmol/L; Blood Urea Nitrogen 32 mg/dL (9-20); Calcium 8.9 mg/dL (8.4-10.2); Carbon Dioxide 24 mmol/L (22-30); Chloride 101 mmol/L (98-107); Glucose 96 mg/dL (74-99); Non-African American GFR(CKD) 40 (>60 ml/min/1.73 sqM); Potassium 4.1 mmol/L (3.5-5.1); Sodium 134 mmol/L (137-145)
--- NOTE | 2024-01-17 12:06 | P.PN ---
Subjective Progress Note Date: 01/17/24 89-year-old male with a PMH of hypertension and hyperlipidemia who was transferred from [facility] where he was sent to from the [place] clinic with complaints of shortness of breath and lower extremity edema. Chest x-ray in the emergency room revealed findings consistent with CHF. EKG revealed sinus rhythm at 77 bpm with diffuse T wave inversions and biphasic T waves. Laboratory evaluation was remarkable for sodium 136, chloride 108, CO2 18, BUN 23, creatinine 1.33, total bilirubin 1.6, and troponin 0.056 with proBNP 16,800. Patient was started on Lasix and admitted for CHF exacerbation. 01/14 Patient was seen and examined. Breathing better. Maintained on Lasix 40 mg IV TID. Output 1900 cc so far. CBC unremarkable. CMP Na 136, Cl 108, bicarb 18, BUN 23, Cr 1.33, T. Bili 1.6. Troponin 0.061. 01/15 Patient was seen and examined. Breathing back to baseline. Urine output 5800 cc. BMP Na 134, BUN 26, Cr 1.44, glu 123. Echo shows EF20-25%. Renal US shows atrophic change of the kidney. Discussed with Mandi MADISON, transition lasix IV to PO, likely discharge tomorrow. BMP Na 134, BUN 26, Cr 1.44, glu 123. 01/16 Patient was seen and examined. No complaints. at bedside. Lasix switc hed to PO. Started on Farxiga, Entresto and Metoprolol. Cardiology recommends discharge home tomorrow with plans for outpatient cath. BMP Na 134, BUN 32, Cr 1.53. General: non toxic, no distress, appears at stated age Derm: warm, dry Head: atraumatic, normocephalic, symmetric Eyes: EOMI, no lid lag, anicteric sclera Mouth: no lip lesion, mucus membranes moist Cardiovascular: S1S2 reg, no murmur Lungs: CTA bilateral, no rhonchi, no rales , no accessory muscle use Ext: no gross muscle atrophy, 2+ edema, no contractures Neuro: no focal neuro deficits Psych: Alert, oriented, appropriate affect Based on my assessment of this patient, this patient meets a high complexity level of care. CHF exacerbation unknown EF: Lasix switched to 40 mg PO QD. Echo as above. Started on Farxiga 10 mg PO QD, Metoprolol 25 mg PO QD, Entresto 1 tab PO BID. Cardiology on board. MINDY on CKD: Renal bladder US as above. Monitor electrolytes and renal function while on Lasix and Entresto. Troponin elevation: Flat. ACS ruled out. Likely leak from CHF. Hypertension: Metoprolol and Entresto as above. Monitor vitals and adjust medications as necessary. Hopeful discharge home tomorrow if renal function and BP stable tomorrow. CODE STATUS: FULL CODE DVT Prophylaxis: Heparin SQ GI Prophylaxis: Protonix PO Designated medical POA if patient is not able to make medical decisions for themselves: I have reviewed the following oracle security consultant notes: Cardiology I have reviewed the results of the following tests: BMP. I have ordered the following tests: BMP. I have discussed the care of this patient with the following independent historian: Discussed extensively with regarding diet and CHF management. I have independently interpreted the following test below: I have discussed the management of this patient with the following physician: Objective - Vital Signs Vital signs: Vital Signs Temp 98.2 F 01/17/24 08:00 Pulse 69 01/17/24 08:00 Resp 18 01/17/24 08:00 BP 120/66 01/17/24 08:00 Pulse Ox 96 01/17/24 08:00 FiO2 Intake & Output 01/16/24 01/17/24 01/17/24 18:59 06:59 18:59 Intake Total 480 120 Output Total 450 400 200 Balance 30 -400 -80 Weight 88.9 kg Intake: Oral 480 120 Output: Urine 450 400 200 Other: Voiding Method Urinal Urinal Urinal # Voids 1 1 1 # Bowel Movements 1 - Labs CBC & Chem 7: 01/15/24 02:50 01/17/24 09:00 Labs: Abnormal Lab Results - Last 24 Hours (Table) 01/16/24 Range/Units 07:47 Sodium 134 L (137-145) mmol/L BUN 26 H (9-20) mg/dL Creatinine 1.44 H (0.66-1.25) mg/dL Glucose 123 H (74-99) mg/dL
--- NOTE | 2024-01-17 12:20 | P.PN ---
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 We have been asked to evaluate the patient for new onset of CHF. Patient states he has had shortness of breath for the past 3 to 4 months and gradually worsening. He is also had lower extremity edema. He sleeps on 1 pillow. He denies any dizziness. No syncopal episodes. No chest pain or pressure. He has an occasional cough. No fever or wheezing. No nausea or vomiting. No blood in his stools. He denies history of diabetes. He states he quit smoking 43 years ago. He states he is fairly active as he usually mows his own lawn. He states that now he walks 6 feet and he is shortness of breath and has to stop. He denies any known history of chronic kidney disease. Patient is seen today in the emergency center waiting for a bed on the cardiac stepdown unit. EKG: Sinus rhythm with nonspecific ST changes. Chest x-ray: Prominent central vascular and interstitial markings suggest mild edema. Trace left and small right pleural effusions. No pneumothorax. Moderate cardiomegaly. Renal ultrasound: Renal cortical thinning and atrophy. Simple cyst within the liver. Laboratory studies: CBC unremarkable. Sodium 136, potassium 4.2, BUN 23 creatinine 1.33. Troponin 0.056, 0.061, 0.070. Home cardiac medications: Aspirin 325 mg daily, losartan 100 mg daily, Lipitor 40 mg daily. 01/15 Patient states that today he is feeling much better from yesterday. He denies having any chest pain. He is currently on IV Lasix 40 mg every 8 hours. Patient has a negative fluid balance and documented weight loss. Repeat blood work reveals BUN of 26 creatinine 1.44, sodium 134 and potassium 3.9. Blood pressure 117/65, heart rate 77, pulse ox 94% on room air. Echocardiogram reveals EF of 20 to 25% with global hypokinesia. Mild to moderate mitral regurgitation. Aortic sclerosis with mild aortic regurgitation. Discussed option of cardiac catheterization with the patient. 01/16 Patient states that his breathing is better. He states he has been ambulating in the hallway and did well with this. No chest pain, no palpitations no lightheadedness. Discussed with patient again the option of cardiac catheterization and will plan to address this as an outpatient. Repeat blood work reveals sodium 134, potassium 4.1, BUN 32 and creatinine 1.53. proBNP 9190. Blood pressure 100/47, heart rate 61, pulse ox 96% on room air. Ye sterday, IV Lasix was transitioned to oral 40 mg daily and patient was started on Toprol-XL and Farxiga. Physical examination: Gen: This is an 89-year-old male in no acute distress VS: reviewed HEENT: Head is atraumatic, normocephalic. Pupils equal, round. Sclerae is anicteric. NECK: Supple. No JVD. LUNGS: Clear to auscultation bilaterally. No intercostal retractions. HEART: Regular rate and rhythm. Systolic murmur. ABDOMEN: Soft No tenderness. EXTREMITIES: No edema lower extremities. No calf tenderness. NEUROLOGICAL: Patient is awake, alert and oriented x3. Assessment: Mildly elevated troponins of, doubt ischemic most likely a type II non-ST elevated [place] due to heart failure Acute heart failure, undetermined type Hypertension Hyperlipidemia History of CVA 6 years ago Plan: Continue aspirin 81 mg daily, atorvastatin 40 mg daily Continue patient on Lasix oral 40 mg daily, Toprol XL 25 mg daily, and Farxiga 10 mg daily Monitor CAM, daily weights, electrolytes and renal function Depending on kidney function tomorrow, may start patient on DURAN inhibitor or ARB. Discussed option of cardiac catheterization which may be considered as an outpatient. Further recommendations to follow based upon clinical course. Nurse practitioner note has been reviewed, I agree with documented findings and plan of care. Patient was seen and examined. Objective - Vital Signs Vital signs: Vital Signs Temp 98.2 F 01/17/24 08:00 Pulse 69 01/17/24 08:00 Resp 18 01/17/24 08:00 BP 120/66 01/17/24 08:00 Pulse Ox 96 01/17/24 08:00 FiO2 Intake & Output 01/16/24 01/17/24 01/17/24 18:59 06:59 18:59 Intake Total 480 120 Output Total 450 400 200 Balance 30 -400 -80 Weight 88.9 kg Intake: Oral 480 120 Output: Urine 450 400 200 Other: Voiding Method Urinal Urinal Urinal # Voids 1 1 1 # Bowel Movements 1 - Labs CBC & Chem 7: 01/15/24 02:50 01/17/24 09:00 Labs: Abnormal Lab Results - Last 24 Hours (Table) 01/16/24 Range/Units 07:47 Sodium 134 L (137-145) mmol/L BUN 26 H (9-20) mg/dL Creatinine 1.44 H (0.66-1.25) mg/dL Glucose 123 H (74-99) mg/dL
[2024-01-18 09:10] LABS: NT-Pro-B-Type Natriuretic Pept 5550 pg/mL
[2024-01-18 09:11] VITALS: TEMP 97.4
[2024-01-18 09:12] LABS: African American GFR (CKD) 48 (>60 ml/min/1.73 sqM); Anion Gap 7 mmol/L; Blood Urea Nitrogen 33 mg/dL (9-20); Calcium 8.7 mg/dL (8.4-10.2); Carbon Dioxide 25 mmol/L (22-30); Chloride 101 mmol/L (98-107); Glucose 86 mg/dL (74-99); Non-African American GFR(CKD) 42 (>60 ml/min/1.73 sqM); Potassium 4.3 mmol/L (3.5-5.1); Sodium 133 mmol/L (137-145)
[2024-01-18 11:22] VITALS: BP 93/51; PULSE 68; RESP 18
--- NOTE | 2024-01-18 12:33 | P.DS ---
Providers Date of admission: 01/14/24 23:38 Expected date of discharge: 01/18/24 Attending physician: Shahid Krueger MD Consults: 01/14/24 22:38 Consult Physician Routine Consulting Provider: [facility] Consult Reason/Comments: new onset chf Do you want consulting provider notified?: Yes Primary care physician: Sue Gutierrez [facility] Course: 89-year-old male with a PMH of hypertension and hyperlipidemia who was transferred from [facility] where he was sent to from the CT clinic with complaints of shortness of breath and lower extremity edema. Chest x-ray in the emergency room revealed findings consistent with CHF. EKG revealed sinus rhythm at 77 bpm with diffuse T wave inversions and biphasic T waves. Laboratory evaluation was remarkable for sodium 136, chloride 108, CO2 18, BUN 23, creatinine 1.33, total bilirubin 1.6, and troponin 0.056 with proBNP 16,800. Patient was started on IV Lasix and admitted for CHF exacerbation. Cardiology consulted. He diuresed well. Troponins trended 0.056, 0.061. Echo shows EF20- 25%. Renal US shows atrophic change of the kidney. He was started on Metoprolol, Entresto, and Farxiga. There are plans for outpatient cardiac cath. 01/17 Patient was seen and examined. No complaints. at bedside. Plans for discharge today if renal function stable. Cardiology recommends outpatient follow up for possible cardiac cath. BMP Na 133, BUN 33, Cr 1.49. Patient advised low salt diet and fluid restriction to 1.5L. Medications sent to pharmacy include ASA 81 mg PO QD, Farxiga 10 mg PO QD, Metoprolol 25 mg PO QD and Entresto 24-26 mg PO BID, Lasix 20 mg PO QD. Continue home medication of Lipitor. Repeat BMP in 3 days for MINDY to be followed up with PCP. General: non toxic, no distress, appears at stated age Derm: warm, dry Head: atraumatic, normocephalic, symmetric Eyes: EOMI, no lid lag, anicteric sclera Mouth: no lip lesion, mucus membranes moist Cardiovascular: S1S2 reg, no murmur Lungs: CTA bilateral, no rhonchi, no rales , no accessory muscle use Ext: no gross muscle atrophy, no edema, no contractures Neuro: no focal neuro deficits Psych: Alert, oriented, appropriate affect Discharge Diagnosis CHF exacerbation EF 20-25% of new onset MINDY on likely CKD, unknown baseline Troponin elevation Hypertension This complex discharge took 35 minutes to complete. Patient Condition at Discharge: Stable Plan - Discharge Summary Discharge Rx Participant: No New Discharge Prescriptions: New Dapagliflozin Propanediol [Farxiga] 10 mg PO DAILY #30 tab Metoprolol Succinate (ER) [Toprol XL] 25 mg PO DAILY #30 tab Aspirin 81 mg PO DAILY #30 tab Sacubitril/Valsartan [Entresto 24 mg-26 mg Tablet] 1 each PO BID #60 tab Furosemide [Lasix] 20 mg PO DAILY #30 tab Continue Atorvastatin [Lipitor] 40 mg PO DAILY Febuxostat [Uloric] 40 mg PO DAILY Discontinued Losartan Potassium [Cozaar] 100 mg PO DAILY Aspirin 325 mg PO DAILY Discharge Medication List Atorvastatin [Lipitor] 40 mg PO DAILY 01/15/24 [History] Febuxostat [Uloric] 40 mg PO DAILY 01/15/24 [History] Aspirin 81 mg PO DAILY #30 tab 01/18/24 [Rx] Dapagliflozin Propanediol [Farxiga] 10 mg PO DAILY #30 tab 01/18/24 [Rx] Furosemide [Lasix] 20 mg PO DAILY #30 tab 01/18/24 [Rx] Metoprolol Succinate (ER) [Toprol XL] 25 mg PO DAILY #30 tab 01/18/24 [Rx] Sacubitril/Valsartan [Entresto 24 mg-26 mg Tablet] 1 each PO BID #60 tab 01/18/24 [Rx] Follow up Appointment(s)/Referral(s): Sue Mosquera PAC [Primary Care Provider] - 1-2 days (Please call on Saturday to schedule hospital follow up apt. ) Gerald Price MD [STAFF PHYSICIAN] - 1 Week (The office will call you on Saturday with a follow up apt. ) Ambulatory/Diagnostic Orders: Basic Metabolic Panel [LAB.AMB] Time Frame: 3 Days, Location: None Selected Patient Instructions/Handouts: Heart Failure (DC), Heart Healthy Diet (DC) Activity/Diet/Wound Care/Special Instructions: Diet: Fluid restriction of 1.5L, low salt Discharge Disposition: HOME SELF-CARE
--- NOTE | 2024-01-18 13:01 | P.PN ---
Subjective HISTORY OF PRESENT ILLNESS: This is an 89-year-old male, does not follow with a community health program coordinator, past medical history of hypertension, hyperlipidemia, CVA 6 years ago. We have been asked to evaluate the patient for new onset of CHF. Patient states he has had shortness of breath for the past 3 to 4 months and gradually worsening. He is also had lower extremity edema. He sleeps on 1 pillow. He denies any dizziness. No syncopal episodes. No chest pain or pressure. He has an occasional cough. No fever or wheezing. No nausea or vomiting. No blood in his stools. He denies history of diabetes. He states he quit smoking 43 years ago. He states he is fairly active as he usually mows his own lawn. He states that now he walks 6 feet and he is shortness of breath and has to stop. He denies any known history of chronic kidney disease. Patient is seen today in the emergency center waiting for a bed on the cardiac stepdown unit. EKG: Sinus rhythm with nonspecific ST changes. Chest x-ray: Prominent central vascular and interstitial markings suggest mild edema. Trace left and small right pleural effusions. No pneumothorax. Mode rate cardiomegaly. Renal ultrasound: Renal cortical thinning and atrophy. Simple cyst within the liver. Laboratory studies: CBC unremarkable. Sodium 136, potassium 4.2, BUN 23 creatinine 1.33. Troponin 0.056, 0.061, 0.070. Home cardiac medications: Aspirin 325 mg daily, losartan 100 mg daily, Lipitor 40 mg daily. 01/15 Patient states that today he is feeling much better from yesterday. He denies having any chest pain. He is currently on IV Lasix 40 mg every 8 hours. Patient has a negative fluid balance and documented weight loss. Repeat blood work reveals BUN of 26 creatinine 1.44, sodium 134 and potassium 3.9. Blood pressure 117/65, heart rate 77, pulse ox 94% on room air. Echocardiogram reveals EF of 20 to 25% with global hypokinesia. Mild to moderate mitral regurgitation. Aortic sclerosis with mild aortic regurgitation. Discussed option of cardiac catheterization with the patient. 01/16 Patient states that his breathing is better. He states he has been ambulating in the hallway and did well with this. No chest pain, no palpitations no lightheadedness. Discussed with patient again the option of cardiac catheterization and will plan to address this as an outpatient. Repeat blood work reveals sodium 134, potassium 4.1, BUN 32 and creatinine 1.53. proBNP 9190. Blood pressure 100/47, heart rate 61, pulse ox 96% on room air. Yesterday, IV Lasix was transitioned to oral 40 mg daily and patient was started on Toprol-XL and Farxiga. 01/18/2024 Patient examined this morning at the bedside. He is sitting up in the chair. He denies chest pain or pressure. Denies SOB. Vital signs are stable. Blood pressures are soft with a systolic in the 90s. PHYSICAL EXAM: VITAL SIGNS: Reviewed. GENERAL: Well-developed in no acute distress. NECK: Supple. No JVD or thyromegaly LUNGS: Respirations even and unlabored. Lungs essentially clear to auscultation bilaterally. HEART: Regular rate and rhythm. S1 and S2 heard. + systolic murmur. EXTREMITIES: Normal range of motion. No clubbing or cyanosis. Peripheral pulses intact. No lower extremity edema ASSESSMENT: Mildly elevated troponins due to to type II SC secondary to oxygen supply and demand mismatch secondary to acute heart failure Acute heart failure with reduced EF, 20 to 25% New onset cardiomyopathy, ischemic versus nonischemic Hypertension Hyperlipidemia History of CVA 6 years ago Acute kidney injury with likely chronic kidney disease, baseline unknown PLAN: Continue current cardiac medications Decrease Lasix to 20 mg daily Patient is stable for discharge home today from a cardiac standpoint Patient will require outpatient catheterization to evaluate cardiomyopathy Patient is requesting to follow-up with a community health program coordinator in [place] Nurse practitioner note has been reviewed by physician. Signing provider agrees with the documented findings, assessment, and plan of care documented by [employer] as a scribe. Objective - Vital Signs Vital signs: Vital Signs Temp 97.4 F L 01/18/24 09:11 Pulse 55 L 01/18/24 09:17 Resp 16 01/18/24 09:11 BP 95/54 01/18/24 09:11 Pulse Ox 97 01/18/24 09:11 FiO2 Intake & Output 01/17/24 01/18/24 01/18/24 18:59 06:59 18:59 Intake Total 1318 Output Total 425 640 Balance 893 -640 Weight 89.5 kg Intake: Oral 1318 Output: Urine 425 640 Other: Voiding Method Urinal Urinal Urinal # Voids 1 - Labs CBC & Chem 7: 01/15/24 02:50 01/18/24 07:15 Labs: Abnormal Lab Results - Last 24 Hours (Table) 01/18/24 Range/Units 07:15 Sodium 133 L (137-145) mmol/L BUN 33 H (9-20) mg/dL Creatinine 1.49 H (0.66-1.25) mg/dL
[2024-01-19] MEDS ORDERED: FUROSEMIDE 20 MG TAB PO SCH (09:00)
== END 2024-01-18 12:00 | disposition home or self-care (01) | DRG 280 ==
LOC: EC 21:59 → 3SCARD 23:38
PROVIDERS: ADMIT Internal Medicine; ATTEND Internal Medicine
DX: I13.0 Hypertensive heart and chronic kidney disease with heart failure and stage 1 through stage 4 chronic kidney disease, or unspecified chronic kidney disease (principal); I50.21 Acute systolic (congestive) heart failure; I21.A1 Myocardial infarction type 2; N17.9 Acute kidney failure, unspecified; I42.9 Cardiomyopathy, unspecified; N18.9 Chronic kidney disease, unspecified; K76.89 Other specified diseases of liver; I08.0 Rheumatic disorders of both mitral and aortic valves; E78.00 Pure hypercholesterolemia, unspecified; Z86.73 Personal history of transient ischemic attack (TIA), and cerebral infarction without residual deficits; Z79.82 Long term (current) use of aspirin; Z79.899 Other long term (current) drug therapy; Z87.891 Personal history of nicotine dependence
CPT/HCPCS: 36415; 71045; 76770; 80048; 80053; 83605; 83735; 83880; 84484; 85025; 85610; 85730; 93005; 93306; 96372; 96374; 96376; 99285

== ENCOUNTER 2024-02-19 05:48 | Day surgery (SDC) | payer OTHER ==
[~2024-02-19 05:48] MED LIST: ALPRAZolam 0.25 MG TAB PO PRN; ALPRAZolam 0.5 MG TAB PO PRN; HEPARIN SODIUM,PORCINE (1 ML) 2,500 UNIT in SODIUM CHLORIDE 0.9% 250 ML IRRIGATION PRN; HEPARIN SODIUM,PORCINE 10,000 UNIT in SODIUM CHLORIDE 0.9% 1,000 ML IRRIGATION PRN; NITROGLYCERIN SL TABS 0.4 MG TAB SUBLINGUAL PRN
[2024-02-19] MEDS: SODIUM CHLORIDE 0.9% 1,000 ML in EMPTY BAG 1 BAG IV SCH (06:14)
[2024-02-19] MEDS: ASPIRIN 325 MG TAB PO STA (06:14)
[2024-02-19] MEDS: IV FLUID CONTINUATION 1,000 ML IV ONE (06:15)
[2024-02-19 06:36] LABS: Basophils # (A) 0.1 k/uL (0-0.2); Basophils % (A) 1 %; Eosinophils # (A) 0.6 k/uL (0-0.7); Eosinophils % (A) 5 %; HCT 47.2 % (39.0-53.0); HGB 15.7 gm/dL (13.0-17.5); Lymphocytes # (A) 1.5 k/uL (1.0-4.8); Lymphocytes % (A) 14 %; MCHC 33.2 g/dL (31.0-37.0); MCV 90.4 fL (80.0-100.0); Mean Platelet Volume 7.7; Monocytes # (A) 0.7 k/uL (0-1.0); Monocytes % (A) 7 %; Neutrophils # (A) 7.6 k/uL (1.3-7.7); Neutrophils % (A) 71 %; Platelet Count 242 k/uL (150-450); RBC 5.22 m/uL (4.30-5.90); WBC 10.7 k/uL (3.8-10.6)
[2024-02-19 06:39] VITALS: TEMP 97.7
[2024-02-19 07:12] LABS: African American GFR (CKD) 50 (>60 ml/min/1.73 sqM); Anion Gap 9 mmol/L; Blood Urea Nitrogen 25 mg/dL (9-20); Calcium 9.6 mg/dL (8.4-10.2); Carbon Dioxide 22 mmol/L (22-30); Chloride 107 mmol/L (98-107); Glucose 108 mg/dL (74-99); Non-African American GFR(CKD) 43 (>60 ml/min/1.73 sqM); Potassium 4.3 mmol/L (3.5-5.1); Sodium 138 mmol/L (137-145)
[2024-02-19] MEDS ORDERED: VERAPAMIL 2.5 MG/ML 2 ML AMP ONE (07:12)
[2024-02-19] MEDS ORDERED: HEPARIN SODIUM 1,000 UN/ML (10ML VL) ONE (07:12)
[2024-02-19] MEDS ORDERED: LIDOCAINE 1% INJ 10MG/ML (20 ML MDV) ONE (07:12)
[2024-02-19] MEDS ORDERED: fentaNYL (PF) 50 MCG/ML 2 ML AMP ONE (07:13)
[2024-02-19] MEDS: fentaNYL (PF) 50 MCG/1 ML VIAL IVP ONE (07:42)
[2024-02-19] MEDS: LIDOCAINE 1% INJ 10MG/ML (20 ML MDV) SQ ONE (07:42)
[2024-02-19] MEDS: VERAPAMIL 2.5 MG/ML 4 ML VIAL INTRAARTER ONE (07:43)
[2024-02-19] MEDS: HEPARIN SODIUM 1,000 UN/ML (10ML VL) IVP ONE (07:47)
[2024-02-19] MEDS: IOPAMIDOL-370 100ML BTL INTRATHECA ONE (08:07)
[2024-02-19] MEDS: HEPARIN SODIUM,PORCINE 10,000 UNIT in SODIUM CHLORIDE 0.9% 1,000 ML IRRIGATION ONE (08:08)
[2024-02-19] MEDS: HEPARIN SODIUM,PORCINE (1 ML) 2,500 UNIT in SODIUM CHLORIDE 0.9% 250 ML IRRIGATION ONE (08:08)
[2024-02-19 08:24] VITALS: RESP 16
[2024-02-19] MEDS ORDERED: RX INFO: IV CONTRAST WAS GIVEN 1 EACH MISC MISCELLANE PRN (08:27)
[2024-02-19] MEDS ORDERED: SODIUM CHLORIDE 0.9% 1,000 ML IV SCH (08:30)
--- NOTE | 2024-02-19 08:34 | P.CARDCATH ---
Date of Procedure: 02/19/24 Description of Procedure: Cardiac Catheterization: The patient is an 89-year-old male who presented to the hospital recently with symptoms of progressive dyspnea and evidence of CHF. He was found to have severe cardiomyopathy. Recommendations were made regarding cardiac catheterization, the risks and the complications were discussed with the patient who is in full understanding and agreement. Procedure Description: Patient was brought to laborer bituminous paving in fasting semi-sedated state after receiving Fentanyl and Benadryl achieiving moderate conscious sedated state. Using Xylocaine Anesthesia and modified Seldinger technique, a 6-Latvian sheath was introduced in the right radial artery . Subsequently, selective coronary angiography was performed using a 5-Latvian 3.5 bend right Janelle and 4 bend left Janelle catheter. Multiple views of the coronary artery including hemiaxial views were obtained. The 5 Latvian pigtail catheter was used to cross the aortic valve and LVEDP was calculated. Following that, catheter and sheath were removed. Hemostasis was obtained with deployment of vascular band . There was no immediate complication. Patient was returned to room in stable condition. Of note, the patient received a total of 4500 units of intravenous heparin as well as intra-arterial verapamil. Findings: Fluoroscopy: Severe calcification of the LAD was noted and to a lesser extent in the RCA and left circumflex Left main: This is a very short size vessel that bifurcated immediately to LAD and left circumflex, left main has no obstructive disease LAD: This vessel is heavily calcified proximally. The ostium of the LAD has a 30% plaque. The mid LAD after the takeoff of the first septal feed grinder is subtotally occluded with slow flow in the distal segment the rest of the vessel does not have high-grade stenosis Left circumflex: This is a large nondominant vessel giving rise to a large ob tuse marginal branch. It has a proximal 99% eccentric lesion, the rest of the vessel has no high-grade stenosis RCA: This is a large dominant vessel, bifurcating distally to PDA and PLV. The proximal RCA has sequential 85 to 90% stenosis. The mid RCA has a 80% plaque in the distal RCA has an 80% plaque prior to the bifurcation Left Ventriculogram: Not performed Hemodynamics: There was no gradient across the aortic valve, LVEDP was 20-24 mmHg Conclusion: 1. Heavily calcified coronary arteries, predominantly in the LAD 2. Subtotally occluded mid LAD 3. Severe stenosis in the proximal left circumflex 4. Severe stenosis in the proximal, mid and distal RCA Recommendations: The patient will continue medical therapy and will be evaluated as an outpatient for possible maximal medical therapy versus staged angioplasty and stenting. Because of his overall risks the risk from coronary artery bypass grafting is quite elevated. The findings and the recommendations were discussed with the patient and the family and they were in full understanding and agreement. Duration of sedation is 25 minutes.
[2024-02-19 11:43] VITALS: BP 132/64; PULSE 66
[2024-02-19] MEDS ORDERED: ATORVASTATIN 40 MG TAB PO SCH (21:00)
[2024-02-19] MEDS ORDERED: SACUBITRIL/VALSARTAN 24 MG-26 MG TABLET PO SCH (21:00)
[2024-02-20] MEDS ORDERED: allopurinoL 100 MG TAB PO SCH (09:00)
[2024-02-20] MEDS ORDERED: ASPIRIN 81 MG PO SCH (09:00)
[2024-02-20] MEDS ORDERED: DAPAGLIFLOZIN PROPANEDIOL 10 MG TABLET PO SCH (09:00)
[2024-02-20] MEDS ORDERED: METOPROLOL SUCCINATE (ER) 25 MG TAB.ER.24H PO SCH (09:00)
== END 2024-02-19 11:48 | disposition home or self-care (01) ==
LOC: CATHCVL 05:48
PROVIDERS: ATTEND Internal Medicine Interventional Cardiology
DX: I25.10 Atherosclerotic heart disease of native coronary artery without angina pectoris (principal); I50.22 Chronic systolic (congestive) heart failure
CPT/HCPCS: 93458; 80048; 85025; C1769 ×2; C1894; J1644 ×3; J2001; Q9967; J3010

== ENCOUNTER 2024-05-05 23:21 | Inpatient (IN) | payer OTHER, MEDICARE ==
--- NOTE | 2024-05-06 00:07 | ED ---
General Adult HPI - General Chief complaint: Recheck/Abnormal Lab/Rx Stated complaint: Chest Pain Time Seen by Provider: 05/05/24 23:34 Source: RN/MD, EMS Mode of arrival: EMS - History of Present Illness Initial comments: Dictation was produced using [employer] dictation software. please excuse any grammatical, word or spelling errors. Chief Complaint: 89-year-old male presents emergency department as a transfer from [facility] for NSTEMI History of Present Illness: Patient is an 89-year-old male with cardiac history he presented to [facility] for shortness of breath and left leg swelling. He has a history of heart failure. His setter helper is Dr. Salinas. Seen and evaluated there where he was found have an elevated troponin of 0.098 and elevated BNP. Patient states that his shortness of breath had resolved. He did get a CT angiography to rule out pulmonary embolism. The ROS documented in this emergency department record has been reviewed and confirmed by me. Those systems with pertinent positive or negative responses have been documented in the HPI. All other systems are other negative and/or noncontributory. - Related Data Home Medications Medication Instructions Recorded Confirmed Atorvastatin [Lipitor] 40 mg PO HS 01/15/24 02/19/24 Febuxostat [Uloric] 40 mg PO DAILY 01/15/24 02/17/24 Furosemide [Lasix] 20 mg PO DAILY 02/17/24 02/19/24 Previous Rx's Medication Instructions Recorded Aspirin 81 mg PO DAILY #30 tab 01/18/24 Dapagliflozin Propanediol [Farxiga] 10 mg PO DAILY #30 tab 01/18/24 Metoprolol Succinate (ER) [Toprol 25 mg PO DAILY #30 tab 01/18/24 XL] Sacubitril/Valsartan [Entresto 24 1 each PO BID #60 tab 01/18/24 mg-26 mg Tablet] Allergies Allergy/AdvReac Type Severity Reaction Status Date / Time No Known Allergies Allergy Verified 02/19/24 06:12 Review of Systems ROS Statement: Those systems with pertinent positive or pertinent negative responses have been documented in the HPI. ROS Other: All systems not noted in ROS Statement are negative. Past Medical History Past Medical History: Heart Failure, CVA/TIA, Hyperlipidemia, Hypertension Additional Past Medical History / Comment(s): recent adm. to [facility] for SOB, CHF, SOB w/exertion much improved per pt., some swelling lower extremities, stroke 2018-no residual effects, rheumatic fever @age of 14 History of Any Multi-Drug Resistant Organisms: None Reported Past Surgical History: Back Surgery, Joint Replacement Additional Past Surgical History / Comment(s): thu knee replacements, masoud in neck from surg., right ear surg.years ago for ruptured eardrum Past Anesthesia/Blood Transfusion Reactions: No Reported Reaction Past Psychological History: No Psychological Hx Reported Smoking Status: Former smoker - Past Family History Mother Family Medical History: Hyperlipidemia General Exam - General Exam Comments Initial Comments: PHYSICAL EXAM: General Impression: Alert and oriented x3, not in acute distress HEENT: Normocephalic atraumatic, extra-ocular movements intact, pupils equal and reactive to light bilaterally, mucous membranes moist. Cardiovascular: Heart regular rate and rhythm Chest: Able to complete full sentences, no retractions, no tachypnea Abdomen: abdomen soft, non-tender, non-distended, no organomegaly Musculoskeletal: Pulses present and equal in all extremities, no peripheral edema Motor: no focal deficits noted Neurological: CN II-XII grossly intact, no focal motor or sensory deficits noted Skin: Intact with no visualized rashes Psych: Normal affect and mood Course Vital Signs 05/05/24 23:22 Temperature 97.5 F L Pulse Rate 85 Respiratory 19 Rate Blood Pressure 110/63 O2 Sat by Pulse 97 Oximetry EKG Findings - EKG Comments: EKG Findings:: My EKG interpretation: Ventricular rate, sinus rhythm,. 07/29/1995, QRS 140, QTc 435. No [place] prolongation, no QTC prolongation, no ST or T- wave changes noted. EKG compared to December [id number] showing left bundle branch block.No sgarbossa criteria met. Medical Decision Making - Medical Decision Making Was pt. sent in by a medical professional or institution (, PA, METAL CEILING HANGER, urgent care, hospital, or longterm...) When possible be specific @ -[facility] department Did you speak to anyone other than the patient for history (EMS, parent, family, police, friend...)? What history was obtained from this source @ -Spoke with transferring physician Did you review nursing and triage notes (agree or disagree)? Why? @ -I reviewed and agree with nursing and triage notes Were old charts reviewed (outside hosp., previous admission, EMS record, old EKG, old radiological studies, urgent care reports/EKG's, longterm records)? Report findings @ -Transfer documentation reviewed Differential Diagnosis (chest pain, altered mental status, abdominal pain women, abdominal pain men, vaginal bleeding, musculoskeletal, weakness, fever, dyspnea, syncope, headache, dizziness, GI bleed, back pain, seizure, CVA, palpatations, mental health)? @ -Differential Dyspnea: Coronary syndrome, arrhythmia, tamponade, asthma, COPD, pulmonary embolism, pneu monia, pneumothorax, pulmonary effusion, anaphylaxis, diabetic ketoacidosis, flailed chest, pulmonary contusion, diaphragmatic rupture, anemia, neuromuscular, this is not meant to be an all-inclusive list. EKG interpreted by me (3pts min.). @ -See above X-rays interpreted by me (1pt min.). @ -None done CT interpreted by me (1pt min.). @ -None done U/S interpreted by me (1pt. min.). @ -None done What testing was considered but not performed or refused? (CT, X-rays, U/S, labs)? Why? @ -None What meds were considered but not given or refused? Why? @ -None Was smoking cessation discussed for >3mins.? @ -No Were there social determinants of health that impacted care today? How? (Homelessness, low income, unemployed, alcoholism, drug addiction, transportation, low edu. Level, literacy, decrease access to med. care, assisted, rehab)? @ -No Was there de-escalation of care discussed even if they declined (Discuss DNR or withdrawal of care, Hospice)? DNR status @ -No What co-morbidities impacted this encounter? (DM, HTN, Smoking, COPD, CAD, Cancer, CVA, ARF, Chemo, Hep., AIDS, mental health diagnosis, sleep apnea, morbid obesity)? @ -Coronary artery disease, heart failure Was patient admitted / discharged? Hospital course, mention meds given and route, prescriptions, significant lab abnormalities, going to OR and other pertinent info. @ -89-year-old male transferred for NSTEMI. Patient has troponin 0.098 at [facility] emergency department. Patient has history of elevated troponin according to chart review. X-ray shows no dynamic changes. Patient continued on heparin will be admitted consultation to cardiology. Did you discuss the management of the patient with other professionals (professionals i.e. , PA, METAL CEILING HANGER, lab, RT, psych nurse, social work lecturer, recreational assistant, teacher, correction officer, rn field case manager)? Give summary @ -Discussed with hospitalist for admission Was critical care preformed (if so, how long)? @ -Yes, 33 minutes for heparin therapy Undiagnosed new problem with uncertain prognosis? @ -No Drug Therapy requiring intensive monitoring for toxicity (Heparin, Nitro, Insulin, Cardizem)? @ -No Were any procedures done? @ -No Diagnosis/symptom? Acute, or Chronic, or Acute on Chronic? Uncomplicated (without systemic symptoms) or Complicated (systemic symptoms)? @ -nstemi Side effects of treatment? @ -No Exacerbation, Progression, or Severe Exacerbation? @ -No Poses a threat to life or bodily function? How? (Chest pain, [place], [place], pneumonia, PE, COPD, DKA, ARF, appy, cholecystitis, CVA, Diverticulitis, Homicidal, Suicidal, threat to staff... and all critical care pts) @ -yes Disposition Clinical Impression: NSTEMI (non-ST elevated myocardial infarction) Disposition: ADMITTED IP TO THIS HOSP Condition: Fair Referrals: [facility],Clinic [Primary Care Provider] - 1-2 days Decision Time: 00:20
[2024-05-06] MEDS ORDERED: NITROGLYCERIN SL TABS 0.4 MG TAB SUBLINGUAL PRN (00:16)
[2024-05-06] MEDS: HEPARIN SOD,PORK IN 0.45% NACL 25,000 UNIT in 0.45% NACL 1 250ML.BAG IV SCH (00:34)
--- NOTE | 2024-05-06 02:32 | P.HPIM ---
History of Present Illness H&P Date: 05/06/24 Patient is a 89-year-old male with a history of systolic CHF (Echo 12/2023 showed EF 20 to 25%, managed by Dr. Salinas), hypertension, and CVA (2017) was transferred from [facility] with a complaint of shortness of breath and leg swelling. The patient notes that roughly 5 days ago his was contacted by one of his physicians who advised him to discontinue his diuretics. The patient doesn't recall the reason and who exactly was the physician. 2 days ago on 05/04 patient noted exertional dyspnea relieved with rest with associated bilateral leg swelling along with productive cough with yellow sputum. Shortness of breath worsened in Saturday afternoon 05/05 which led him to seek care at the [facility] ED. He denies chest pain, nausea, vomiting diaphoresis, dizziness, weakness, leg pain, abdominal pain, changes in vision, weakness, facial asymmetry, changes in voice, or fever. At [facility] ED, patient had elevated troponin of 0.98 and elevated D-dimer of 2.95. Patient was assessed as an NSTEMI and was transferred to our facility for higher care. In the emergency room, EKG showed sinus rhythm with a rate of 82 QRS wide at [address] depression in leads II, III, aVF V5 and V6 QTc 435. CT angiography from [facility] ED showed negative for pulmonary embolism with enlarged heart with asymmetric enlarged left ventricle, upper lobe centrilobular emphysema Labs from ED [facility] showed WBC 9.4, hemoglobin 13.2, hematocrit 39, MCV 90.5, platelet 212, neutrophils 77.6, lymphocytes 10, monocytes 8.9, eosinophils 2.6, basophils 0.5, PT 10.6, INR 1.1, PTT 24.4, sodium 137, potassium 5.2, chloride 110, bicarb of 20, anion gap 7, BUN 24, creatinine 1.3, GFR -Prydeinig 63, GFR non- 52, glucose 106, calcium 9.2, albumin 3.8, alk phos 54, ALT 15, AST 34, total bilirubin 1.3, BNP 2877. On admission, patient was afebrile at 97.5 Fahrenheit with a pulse rate of 85 respiratory rate 19 blood pressure 110/63 satting at 97% with 2 L nasal cannula ED documentation reviewed. Review of systems: Pertinent positives and negatives as discussed in HPI, a complete review of systems was performed and all other systems are negative. Family history: Mother with unrecalled significant medical history. Father with unrecalled significant medical history Social history: Tobacco: Former smoker. Quit 41 years ago. Smoked half a pack a day for 20 years Alcohol: Prior EtOH use quit 15 years ago Recreational drugs: Denies illicit drug use Travel: No recent travel Occupation: Retired Physical examination: Vital signs reviewed General: non toxic, no distress, appears at stated age, normal weight Derm: no unusual rashes/lesions, warm Head: atraumatic, normocephalic, symmetric Eyes: EOMI, no lid lag, anicteric sclera, pupils equal round reactive to light ENT: Nose and ears atraumatic Neck: No cervical lymphadenopathy, trachea midline, supple Mouth: no lip lesion, mucus membranes moist Cardiovascular: S1S2 reg, no murmur, Lungs: CTA bilateral, decreased breath sounds in upper and middle lung mata worse on the L than R lungs, no accessory muscle use Abdominal: soft, nontender to palpation, no guarding Ext: muscle strength 5 out of 5 in all 4 extremities grossly, no gross muscle atrophy, no contractures, positive dorsalis pedis pulse bilateral, bilateral +2 pitting edema left worse than the right lower extremities Neuro: CN II-XI grossly intact, no gross focal neuro deficits Psych: Alert, oriented, appropriate affect and mood Assessment/Plan: #. Non-ST elevated [place] Troponin 0.98. EKG with diffuse ST depression -> Troponin 0.599 -Continue with heparin infusion -Aspirin 325 p.o. OD -C/w Lipitor 80 mg po -Nitroglycerin p.o. 0.4 mg sublingual as needed for chest pain -Trend troponins -Echocardiogram -Consult cardiology -Cardiac monitoring #. Acute on chronic systolic CHF exacerbation -Cardiology consulted -Initiate Lasix 40 mg IVP bid -Intake and output, daily weights -Cardiac monitoring -Echocardiogram ordered #. CKD Stage IIIb, at baseline Creatinine 1.3 BUN of 24 -Avoid nephrotoxic agents -BMP in the a.m. #. Hyperkalemia Potassium 5.2 -BMP at a.m. Chronic conditions: Hypertension, hyperlipidemia -Resume home medications once reconciled DVT prophylaxis: Heparin IV The patient is admitted with an anticipated greater than 2 midnight stay for evaluation of NSTEMI Discussed with: Patient Anticipated discharge place: Home Past Medical History Past Medical History: Heart Failure, CVA/TIA, Hyperlipidemia, Hypertension Additional Past Medical History / Comment(s): recent adm. to [facility] for SOB, CHF, SOB w/exertion much improved per pt., some swelling lower extremities, stroke 2018-no residual effects, rheumatic fever @age of 14 History of Any Multi-Drug Resistant Organisms: None Reported Past Surgical History: Back Surgery, Joint Replacement Additional Past Surgical History / Comment(s): thu knee replacements, masoud in neck from surg., right ear surg.years ago for ruptured eardrum Past Anesthesia/Blood Transfusion Reactions: No Reported Reaction Past Psychological History: No Psychological Hx Reported Smoking Status: Former smoker - Past Family History Mother Family Medical History: Hyperlipidemia Medications and Allergies Home Medications Medication Instructions Recorded Confirmed Type Atorvastatin [Lipitor] 40 mg PO HS 01/15/24 02/19/24 History Febuxostat [Uloric] 40 mg PO DAILY 01/15/24 02/17/24 History Aspirin 81 mg PO DAILY #30 tab 01/18/24 02/19/24 Rx Dapagliflozin Propanediol [Farxiga] 10 mg PO DAILY #30 tab 01/18/24 02/17/24 Rx Metoprolol Succinate (ER) [Toprol 25 mg PO DAILY #30 tab 01/18/24 02/17/24 Rx XL] Sacubitril/Valsartan [Entresto 24 1 each PO BID #60 tab 01/18/24 02/17/24 Rx mg-26 mg Tablet] Furosemide [Lasix] 20 mg PO DAILY 02/17/24 02/19/24 History Allergies Allergy/AdvReac Type Severity Reaction Status Date / Time No Known Allergies Allergy Verified 02/19/24 06:12 Physical Exam Vitals: Vital Signs Temp Pulse Resp BP Pulse Ox 05/05/24 23:22 97.5 F L 85 19 110/63 97 Intake and Output 05/05/24 05/05/24 05/06/24 14:59 22:59 06:59 Other: Weight 87.997 kg
[2024-05-06] MEDS: SODIUM ZIRCONIUM CYCLOSILICATE 10 GM PACKET PO ONE (03:44)
[2024-05-06 06:34] LABS: African American GFR (CKD) 55 (>60 ml/min/1.73 sqM); Anion Gap 3 mmol/L; Blood Urea Nitrogen 22 mg/dL (9-20); Calcium 9.2 mg/dL (8.4-10.2); Carbon Dioxide 24 mmol/L (22-30); Chloride 111 mmol/L (98-107); Glucose 102 mg/dL (74-99); Non-African American GFR(CKD) 48 (>60 ml/min/1.73 sqM); Potassium 4.9 mmol/L (3.5-5.1); Sodium 138 mmol/L (137-145)
[2024-05-06] MEDS: FUROSEMIDE 10 MG/ML 4 ML VIAL IV SCH (08:12)
[2024-05-06] MEDS: ATORVASTATIN 80 MG TAB PO SCH (08:12)
[2024-05-06] MEDS: HEPARIN SODIUM 1,000 UN/ML (10ML VL) IV PRN (08:33)
[2024-05-06] MEDS ORDERED: ATORVASTATIN 40 MG TAB PO SCH (09:00)
[2024-05-06] MEDS ORDERED: ALPRAZolam 0.25 MG TAB PO PRN (09:14)
--- NOTE | 2024-05-06 10:06 | P.CRDCN ---
History of Present Illness Consult date: 05/06/24 Reason for Consult (text): NSTEMI History of present illness: Dr. Ruiz's addendum Acute HFrEF exacerbation due to discontinuation of diuretics for outpatient basis NSTEMI Ischemic cardiomyopathy EF 20 to 25% Severe three-vessel disease, previously treated medically subtotal occlusion of mid LAD, calcific 90% occlusion of LCx, diffuse calcific disease of RCA CKD Dyslipidemia Hypertension Debility and frailty Plan I discussed the case with patient's primary hose handler Dr. Clark, who recommended to treat the patient medically. Will start IV heparin drip, aspirin, Plavix, atorvastatin Metoprolol succinate 25 mg daily Patient also received contrast with a CT angiogram PE protocol and patient has a CKD which would increase patient's risk of having worsening of CKD if further exposed to IV contrast. Continue IV diuretics Uptitrate GDMT as tolerated Once renal function improves, reevaluate the need for PCI to LCx. HPI Patient is an 89 year old male with past medical history of heart failure, CVA/TIA, HLD, and HTN presented to the ED with shortness of breath and bilateral leg swelling that started about 5 days ago. He is a transfer patient from [facility]. 5 days ago one of his physicians informed his to tell him to stop taking the diuretic. He started noticing the SOB about a day after. He presented to the ED at [facility] yesterday. At that facility, his troponin was found to be elevated at 0.98 and D-dimer of 2.95. A CTA was performed over there and no pulmonary embolism was found. He was then tra nsferred to our facility for evaluation of NSTEMI. He was seen this morning in the ED. He endorsed some shortness of breath and bilateral leg swelling, but denied chest pain, nausea, vomiting, diaphoresis, dizziness, weakness, abdominal pain, leg pain. While in the ED, EKG showed sinus rhythm along with ST depression in leads 2, 3, aVF, V5 and V6. Troponin was found to be elevated at 0.597 and increased up to 0.667. ROS: 14 point ROS negative except those mentioned above PMH: Congestive heart failure with reduced ejection fraction, CVA/TIA, HLD, HTN PSH: Back Surgery, Joint replacement Social History: Former smoker about 40 years ago Family History: Hyperlipidemia Physical Exam: General: Alert and oriented, not in acute distress, conversing well Cardiovascular: Regular heart rate, no murmurs Respiratory: Clear to auscultation bilaterally, no wheezing/rhonchi/stridor Abdominal: Soft, nontender to palpation, nondistended Extremity: Trace edema bilateral LE Past Cardiac workup: - Previous echocardiogram performed in December 2023 showed ejection fraction of 20- 25% - Cardiac catheterization performed in January 2024 showed heavily calcified coronary arteries, predominantly in the LAD, subtotally occluded mid LAD, severe stenosis in the proximal left circumflex, and severe stenosis in the proximal, mid, and distal RCA. Impression: NSTEMI CHF Exacerbation CKD HLD HTN Plan: - Cancel echocardiogram order. Last echo was performed in December 2023 and showed EF of 20-25% - Start on Aspirin 81 mg daily and metoprolol succinate 25 mg daily - Stent placement is contraindicated given patient's history of chronic kidney disease stage 4 and heart failure with EF of 20-25%. Patient also received contrast while at [facility] for the CT angiogram. Continue with medical management. - Monitor renal function AM labs Past Medical History Past Medical History: Heart Failure, CVA/TIA, Hyperlipidemia, Hypertension Additional Past Medical History / Comment(s): recent adm. to [facility] for SOB, CHF, SOB w/exertion much improved per pt., some swelling lower extremities, stroke 2018-no residual effects, rheumatic fever @age of 14 History of Any Multi-Drug Resistant Organisms: None Reported Past Surgical History: Back Surgery, Joint Replacement Additional Past Surgical History / Comment(s): thu knee replacements, masoud in neck from surg., right ear surg.years ago for ruptured eardrum Past Anesthesia/Blood Transfusion Reactions: No Reported Reaction Past Psychological History: No Psychological Hx Reported Smoking Status: Former smoker - Past Family History Mother Family Medical History: Hyperlipidemia Medications and Allergies Home Medications Medication Instructions Recorded Confirmed Type Atorvastatin [Lipitor] 40 mg PO HS 01/15/24 05/06/24 History Febuxostat [Uloric] 40 mg PO DAILY 01/15/24 05/06/24 History Aspirin 81 mg PO DAILY #30 tab 01/18/24 05/06/24 Rx Dapagliflozin Propanediol [Farxiga] 10 mg PO DAILY #30 tab 01/18/24 05/06/24 Rx Ascorbic Acid [Vitamin C] 500 mg PO DAILY 05/06/24 05/06/24 History Cholecalciferol [Vitamin D3 (25 25 mcg PO DAILY 05/06/24 05/06/24 History Mcg = 1000 Iu)] Empagliflozin [Jardiance] 10 mg PO DAILY 05/06/24 05/06/24 History Losartan Potassium 100 mg PO DAILY 05/06/24 05/06/24 History Allergies Allergy/AdvReac Type Severity Reaction Status Date / Time No Known Allergies Allergy Verified 05/06/24 07:58 Physical Exam Vitals: Vital Signs Temp Pulse Resp BP Pulse Ox 05/06/24 09:07 94 L 05/06/24 08:06 97.9 F 78 17 107/61 96 05/06/24 06:13 77 18 114/64 94 L 05/06/24 03:44 82 18 116/62 95 05/05/24 23:22 97.5 F L 85 19 110/63 97 Intake and Output 05/05/24 05/06/24 05/06/24 22:59 06:59 14:59 Intake Total 79.801 Output Total 250 Balance -170.199 Intake: Intake, IV Titration 79.801 Amount Heparin Sod,Pork in 0.45% 79.801 NaCl 25,000 unit In 0.45 % NaCl 1 250ml.bag @ 11. 36 UNITS/KG/HR 9.996 mls/ hr IV .Q24H [facility] Rx#: [id number] Output: Urine 250 Other: Weight 87.997 kg Results 05/06/24 06:09 Cardiac Enzymes 05/05/24 05/06/24 05/06/24 Range/Units 23:35 01:29 03:48 Troponin I 0.599 H* 0.573 H* 0.667 H* (0.000-0.034) ng/mL Coagulation 05/06/24 Range/Units 06:09 APTT 34.3 H (22.0-30.0) sec Comprehensive Metabolic Panel 05/06/24 Range/Units 06:09 Sodium 138 (137-145) mmol/L Potassium 4.9 (3.5-5.1) mmol/L Chloride 111 H (98-107) mmol/L Carbon Dioxide 24 (22-30) mmol/L BUN 22 H (9-20) mg/dL Creatinine 1.34 H (0.66-1.25) mg/dL Glucose 102 H (74-99) mg/dL Calcium 9.2 (8.4-10.2) mg/dL Current Medications Generic Name Dose Route Start Last Admin Trade Name Freq PRN Reason Stop Dose Admin Alprazolam 0.25 mg 05/06/24 09:14 Alprazolam 0.25 Mg Tab PO Q6HR PRN Mild Anxiety Aspirin 81 mg 05/06/24 09:30 Aspirin 81 Mg PO DAILY [facility] Atorvastatin Calcium 80 mg 05/06/24 09:00 05/06/24 08:12 Atorvastatin 80 Mg Tab PO 80 mg DAILY NONA Administration Furosemide 40 mg 05/06/24 09:00 05/06/24 08:12 Furosemide 10 Mg/Ml 4 Ml Vial IV 40 mg Q12HR NONA Administration Heparin Sodium (Porcine) 0 unit 05/06/24 08:31 05/06/24 08:33 Heparin Sodium 1,000 Un/Ml (10ml Vl) IV 4,000 unit PER PROTOCOL PRN Administration Low PTT Protocol Heparin Sodium/Sodium Chloride 250 mls @ 9.996 mls/hr 05/06/24 00:30 05/06/24 08:33 25,000 unit/ Sodium Chloride IV 14.36 units/kg/hr .Q24H NONA 12.636 mls/hr Titration Protocol 11.36 UNITS/KG/HR Heparin Sodium (Porcine) 10, 1,001 mls @ 999 mls/hr 05/07/24 07:00 000 unit/ Sodium Chloride IRRIGATION 05/07/24 23:00 ONCE PRN INTRA-OP Heparin Sodium (Porcine) 2,500 250.5 mls @ 250 mls/hr 05/07/24 07:00 unit/ Sodium Chloride IRRIGATION 05/07/24 23:00 ONCE PRN INTRA-OP Sodium Chloride 1,000 ml/ IV 1,000 mls @ 60 mls/hr 05/06/24 09:15 Solution IV 05/06/24 12:14 .[id number] NONA Metoprolol Succinate 25 mg 05/06/24 09:30 Metoprolol Succinate (Er) 25 Mg Tab.Er.24h PO DAILY [facility] Nitroglycerin 0.4 mg 05/06/24 00:16 Nitroglycerin Sl Tabs 0.4 Mg Tab SUBLINGUAL Q5M PRN Chest Pain Intake and Output 05/05/24 05/06/24 05/06/24 22:59 06:59 14:59 Intake Total 79.801 Output Total 250 Balance -170.199 Intake: Intake, IV Titration 79.801 Amount Heparin Sod,Pork in 0.45% 79.801 NaCl 25,000 unit In 0.45 % NaCl 1 250ml.bag @ 11. 36 UNITS/KG/HR 9.996 mls/ hr IV .Q24H [facility] Rx#: [id number] Output: Urine 250 Other: Weight 87.997 kg 05/06/24 06:09
[2024-05-06] MEDS: METOPROLOL SUCCINATE (ER) 25 MG TAB.ER.24H PO SCH (10:39)
[2024-05-06] MEDS: ASPIRIN 81 MG PO SCH (10:41)
[2024-05-06] MEDS: SODIUM CHLORIDE 0.9% 1,000 ML in EMPTY BAG 1 BAG IV SCH (10:58)
--- NOTE | 2024-05-06 12:21 | CA ---
Transthoracic Echo Report Name: Kar Hernandez Age: 89 Gender: M : 1935 Exam Date: 05/06/2024 09:31 Exam Location: [facility] Ht (in): 72 Wt (lb): 194 Ordering Physician: Jeanna Siddiqi MD Attending/Referring Phys: Chemical Process Analyst Purvi Tripathi RDCS Procedure CPT: Indications: Slurred speech, CVA Cardiac Hx: Technical Quality: Fair Contrast 1: Definity Total Dose (mL): 2 Contrast 2: Total Dose (mL): MEASUREMENTS (Male / Female) Normal Values 2D ECHO LVOT Diameter 2.5 cm LV Diastolic Volume MOD BP 309.5 cm??? 67 - 155 / 56 - 104 cm??? LV Systolic Volume MOD BP 264.1 cm??? 22 - 58 / 19 - 49 cm??? LV Ejection Fraction MOD BP 14.7 % >= 55 % LV Cardiac Index MOD BP 1728.4 cm???/min???m??? LV Diastolic Volume MOD 4C 306.1 cm??? LV Systolic Volume MOD 4C 263.6 cm??? LV Ejection Fraction MOD 4C 13.9 % LV Cardiac Index MOD 4C 1619.9 cm???/min???m??? LV Diastolic Length 4C 10.8 cm LV Systolic Length 4C 10.1 cm LV Diastolic Volume MOD 2C 309.1 cm??? LV Systolic Volume MOD 2C 264.5 cm??? LV Ejection Fraction MOD 2C 14.4 % LV Cardiac Index MOD 2C 1701.8 cm???/min???m??? LV Diastolic Length 2C 10.6 cm LV Systolic Length 2C 10.1 cm DOPPLER AV Peak Velocity 164.9 cm/s AV Peak Gradient 10.9 mmHg AV Mean Velocity 113.4 cm/s AV Mean Gradient 5.7 mmHg AV Velocity Time Integral 27.7 cm LVOT Peak Velocity 100.6 cm/s LVOT Peak Gradient 4.0 mmHg LVOT Velocity Time Integral 16.9 cm LVOT Stroke Volume 81.0 cm??? LVOT Stroke Volume Index 38.5 ml/m??? LVOT Cardiac Index 3086.4 cm???/min???m??? AV Area Cont Eq vti 2.9 cm??? AV Area Cont Eq pk 2.9 cm??? MV Peak Velocity 145.2 cm/s MV Peak Gradient 8.4 mmHg MV Mean Velocity 99.7 cm/s MV Mean Gradient 4.3 mmHg MV Velocity Time Integral 32.9 cm MR Peak Velocity 422.9 cm/s MR Peak Gradient 71.6 mmHg MR Flow Rate PISA 39.7 cm???/s MR ERO PISA 0.1 cm??? MR Regurgitant Volume PISA 12.2 cm??? TR Peak Velocity 343.8 cm/s TR Peak Gradient 47.3 mmHg Right Atrial Pressure 20.0 mmHg Pulmonary Artery Systolic Pressu 67.3 mmHg Right Ventricular Systolic Press 67.3 mmHg FINDINGS Left Ventricle Left ventricular ejection fraction is estimated at less than 20 %. Severely increased left ventricular diastolic volume. Severely increased left ventricular systolic volume. Severely decreased left ventricular ejection fraction with regional variability. Anteroapical, anteroseptal and anterolateral akinesis, the rest of the ventricle is hypokinetic Right Ventricle Right ventricular dilatation with reduced function. Severe pulmonary hypertension. Right Atrium Right atrial dilatation. Left Atrium Left atrial dilatation. Mitral Valve Mitral valve thickened. Mitral annular calcification. No evidence for mitral valve prolapse. Mild mitral stenosis. Moderate to severe mitral regurgitation. Aortic Valve Trileaflet aortic valve. Aortic valve sclerosis. No aortic stenosis. Mild to moderate aortic regurgitation. Tricuspid Valve Structurally normal tricuspid valve. No tricuspid stenosis. Moderate to severe tricuspid regurgitation. Pulmonic Valve Pulmonic valve not well visualized. Pericardium No pericardial effusion. Aorta Aortic root and proximal ascending aorta not assessed. CONCLUSIONS Technically difficult study. Definity ECHO contrast used for improved visualization of the endocardial borders (inadequate visualization of two or more contiguous segments). Severely impaired left ventricular systolic function with segmental wall motion abnormality Moderate severe mitral and tricuspid regurgitation with severe pulmonary hypertension Mild to moderate aortic regurgitation Previewed by: Dr. Matthew Clark MD (Electronically Signed) Final Date: 06 May 2024 12:19
[2024-05-06] MEDS: LOSARTAN 25 MG TAB PO SCH (14:45)
[2024-05-07 06:25] LABS: Basophils # (A) 0.1 k/uL (0-0.2); Basophils % (A) 1 %; Eosinophils # (A) 0.1 k/uL (0-0.7); Eosinophils % (A) 1 %; HCT 40.2 % (39.0-53.0); HGB 13.3 gm/dL (13.0-17.5); Lymphocytes % (A) 9 %; MCH 31.6 pg (25.0-35.0); MCHC 33.2 g/dL (31.0-37.0); MCV 95.2 fL (80.0-100.0); Mean Platelet Volume 8.1; Monocytes # (A) 0.7 k/uL (0-1.0); Monocytes % (A) 7 %; Neutrophils # (A) 8.4 k/uL (1.3-7.7); Neutrophils % (A) 81 %; Platelet Count 229 k/uL (150-450); RBC 4.22 m/uL (4.30-5.90); RDW 14.9 % (11.5-15.5); WBC 10.4 k/uL (3.8-10.6)
[2024-05-07] MEDS ORDERED: HEPARIN SODIUM,PORCINE (1 ML) 2,500 UNIT in SODIUM CHLORIDE 0.9% 250 ML IRRIGATION PRN (07:00)
[2024-05-07] MEDS ORDERED: HEPARIN SODIUM,PORCINE 10,000 UNIT in SODIUM CHLORIDE 0.9% 1,000 ML IRRIGATION PRN (07:00)
[2024-05-07 07:30] LABS: African American GFR (CKD) 47 (>60 ml/min/1.73 sqM); Anion Gap 8 mmol/L; Blood Urea Nitrogen 23 mg/dL (9-20); Carbon Dioxide 24 mmol/L (22-30); Chloride 107 mmol/L (98-107); Glucose 101 mg/dL (74-99); Non-African American GFR(CKD) 41 (>60 ml/min/1.73 sqM); Potassium 4.3 mmol/L (3.5-5.1); Sodium 139 mmol/L (137-145)
[2024-05-07] MEDS: allopurinoL 100 MG TAB PO SCH (07:38)
[2024-05-07] MEDS ORDERED: ASPIRIN 325 MG TAB PO SCH (09:00)
[2024-05-07 09:21] LABS: Chol/HDL Ratio 3.19 Ratio; LDL Cholesterol,Calculated 65.3 mg/dL (0.0-131.0); VLDL Calculation 15.66 mg/dL (5.00-40.00)
[2024-05-07] MEDS: AMIODARONE 200 MG TAB PO SCH (11:20)
[2024-05-07] MEDS: SODIUM CHLORIDE 0.9% 1,000 ML IV SCH (11:20)
--- NOTE | 2024-05-07 13:00 | P.PN ---
Subjective Progress Note Date: 05/07/24 Principal diagnosis: HPI: [This elderly gentleman is severe ischemic cardiomyopathy with triple- vessel disease, total/subtotal mid LAD occlusion calcified occlusion of circumflex and diffuse disease in calcified RCA. He was seen yesterday by Dr. Ruiz and also consulted with Dr. Clark who felt that we should pursue medical therapy given his severe disease and ejection fraction of less than 25%. He also received contrast for a CT angiogram that did not reveal any pulmonary em bolism but creatinine went up to 1.52. He was transferred from [facility]. I saw the patient spoke to the and daughter and the patient explained to them that we will pursue conservative management since his got severe disease that is calcified and ejection fraction is poor patient unde rstands and wishes to pursue conservative management. I will optimize medical therapy and hopefully discharge soon.]. PHYSICIAL EXAM: [Vitals are stable. There is JVD 1 cm, no carotid bruit S1-S2 heard normally no significant murmurs lungs reveal decent air entry abdomen is soft the lower extremities reveal diminished pulses trace edema Central nervous system normal]. IMPRESSION: 1. [Ischemic cardiomyopathy with mild troponin elevation]. 2. [History of chronic kidney disease with acute exacerbation]. 3. [Benign hypertension]. 4. [Hyper cholesterolemia]. 5. []. RECOMMENDATIONS: [Will continue medical therapy and explained this to the patient, and son. Based on clinical course I will make further recommendations.]. Objective - Vital Signs Vital signs: Vital Signs Temp 98.2 F 05/07/24 11:15 Pulse 71 05/07/24 11:15 Resp 20 05/07/24 11:15 BP 101/58 05/07/24 11:15 Pulse Ox 95 05/07/24 11:15 FiO2 Intake & Output 05/06/24 05/07/24 05/07/24 18:59 06:59 18:59 Intake Total 164.462 85.538 428.038 Output Total 1300 1450 300 Balance -1135.538 -1364.462 128.038 Weight 86.9 kg Intake: Intake, IV Titration 164.462 85.538 108.038 Amount Heparin Sod,Pork in 0.45% 164.462 85.538 108.038 NaCl 25,000 unit In 0.45 % NaCl 1 250ml.bag @ 11. 36 UNITS/KG/HR 9.996 mls/ hr IV .Q24H [facility] Rx#: [id number] Oral 320 Output: Urine 1300 1450 300 Other: Voiding Method Urinal - Labs CBC & Chem 7: 05/07/24 06:07 05/07/24 06:07 Labs: Abnormal Lab Results - Last 24 Hours (Table) 05/06/24 05/07/24 05/07/24 Range/Units 14:39 06:07 06:07 RBC (4.30-5.90) m/uL Neutrophils # (1.3-7.7) k/uL APTT 45.3 H 39.0 H (22.0-30.0) sec BUN (9-20) mg/dL Creatinine (0.66-1.25) mg/dL Glucose (74-99) mg/dL HDL Cholesterol 37.00 L (40.00-60.00) mg/dL 05/07/24 05/07/24 Range/Units 06:07 06:07 RBC 4.22 L (4.30-5.90) m/uL Neutrophils # 8.4 H (1.3-7.7) k/uL APTT (22.0-30.0) sec BUN 23 H (9-20) mg/dL Creatinine 1.52 H (0.66-1.25) mg/dL Glucose 101 H (74-99) mg/dL HDL Cholesterol (40.00-60.00) mg/dL
[2024-05-07] MEDS: ISOSORBIDE MONONITRATE ER 30 MG TAB.ER.24H PO SCH (14:24)
--- NOTE | 2024-05-07 14:44 | P.PN ---
Subjective Progress Note Date: 05/07/24 Patient is a 89-year-old male with a history of systolic CHF (Echo 12/2023 showed EF 20 to 25%, managed by Dr. Salinas), hypertension, and CVA (2017) was transferred from [place] with a complaint of shortness of breath and leg swelling. The patient notes that roughly 5 days ago his was contacted by one of his physicians who advised him to discontinue his diuretics. The patient doesn't recall the reason and who exactly was the physician. 2 days ago on 05/04 patient noted exertional dyspnea relieved with rest with associated bilateral leg swelling along with productive cough with yellow sputum. Shortness of breath worsened in Saturday afternoon 05/05 which led him to seek care at the [place] ED. He denies chest pain, nausea, vomiting diaphoresis, dizziness, weakness, leg pain, abdominal pain, changes in vision, weakness, facial asymmetry, changes in voice, or fever. At [place] ED, patient had elevated troponin of 0.98 and elevated D-dimer of 2.95. Patient was assessed as an NSTEMI and was transferred to our facility for higher care. In the emergency room, EKG showed sinus rhythm with a rate of 82 QRS wide at [address] depression in leads II, III, aVF V5 and V6 QTc 435. CT angiography from [place] ED showed negative for pulmonary embolism with enlarged heart with asymmetric enlarged left ventricle, upper lobe centrilobular emphysema Labs from ED [place] showed WBC 9.4, hemoglobin 13.2, hematocrit 39, MCV 90.5, platelet 212, neutrophils 77.6, lymphocytes 10, monocytes 8.9, eosinophils 2.6, basophils 0.5, PT 10.6, INR 1.1, PTT 24.4, sodium 137, potassium 5.2, chloride 110, bicarb of 20, anion gap 7, BUN 24, creatinine 1.3, GFR -Tunisian 63, GFR non- 52, glucose 106, calcium 9.2, albumin 3.8, alk phos 54, ALT 15, AST 34, total bilirubin 1.3, BNP 2877. On admission, patient was afebrile at 97.5 Fahrenheit with a pulse rate of 85 respiratory rate 19 blood pressure 110/63 satting at 97% with 2 L nasal cannula Progress note 4patient seen and examined at bedside. No acute events overnight. Patient states he continues to feel mildly short of breath while sitting up and standing, no symptoms while laying in bed. No other complaints at this time. Review of systems: Pertinent positives and negatives as discussed in HPI, a complete review of systems was performed and all other systems are negative. Physical examination: Vital signs reviewed General: non toxic, no distress, appears at stated age, normal weight Derm: no unusual rashes/lesions, warm Head: atraumatic, normocephalic, symmetric Eyes: EOMI, no lid lag, anicteric sclera, pupils equal round reactive to light ENT: Nose and ears atraumatic Neck: No cervical lymphadenopathy, trachea midline, supple Mouth: no lip lesion, mucus membranes moist Cardiovascular: S1S2 reg, no murmur, no pitting edema Lungs: CTA bilateral, normal breath sounds bilaterally, no crackles or wheezing, no accessory muscle use Abdominal: soft, nontender to palpation, no guarding Ext: muscle strength 5 out of 5 in all 4 extremities grossly, no gross muscle atrophy, no contractures, positive dorsalis pedis pulse bilateral, no pitting edema Neuro: CN II-XI grossly intact, no gross focal neuro deficits Psych: Alert, oriented, appropriate affect and mood Labs reviewed todayWBC 10.4, hemoglobin 13.3, platelets 229, APTT 47.9, sodium 139, potassium 4.3, bicarb 24, BUN 23, creatinine 1.52 Imaging reviewed today Echocardiogram for study, estimated EF less than 20%, severely impaired LV systolic function with moderate to severe mitral and tricuspid regurgitation and severe pulmonary hypertension Assessment/Plan: #. Non-ST elevated CO -Initial EKG with diffuse ST depression -Continue with heparin infusion -Aspirin 325 p.o. OD, metoprolol succinate 25 mg daily, amiodarone 200 mg daily -C/w Lipitor 80 mg po -Nitroglycerin p.o. 0.4 mg sublingual as needed for chest pain -Peak troponin 0.667 -Echocardiogram for study, estimated EF less than 20%, severely impaired LV systolic function with moderate to severe mitral and tricuspid regurgitation and severe pulmonary hypertension -Cardiology following -Cardiac monitoring #. Acute on chronic systolic CHF exacerbation -Continue Lasix 40 mg IVP bid Continue losartan 25 mg daily -Intake and output, daily weights -Echocardiogram as above Began IV NS at 50 cc/h, per cardiology Cardiology pursuing conservative medical management #. CKD Stage IIIb Creatinine 1.3 BUN of 24 => creatinine 1.52 -Avoid nephrotoxic agents IV fluids as above -BMP in the a.m. #. Hyperkalemia, resolved Potassium 5.2 => 4.9 => 4.3 -BMP at a.m. Chronic conditions: Hypertension, hyperlipidemia -Resume home medications once reconciled DVT prophylaxis: Heparin IV The patient is admitted with an anticipated greater than 2 midnight stay for evaluation of NSTEMI Discussed with: Patient Anticipated discharge place: Home I saw and evaluated the patient during the carrera and critical portions of this encounter along side the resident. The assessment and plan was discussed with the resident as below. Patient with improved breathing and edema. 2.5L urine output over the past 24H. Cardiology recommending continued management. Acute on chronic systolic CHF exacerbation: Lasix 40 mg IV BID. Metoprolol 25 mg PO QD. Losartan 25 mg PO QD. Restart Farxiga 10 mg PO QD. Consider Aldactone. Monitor daily electrolytes and renal function. Strict intake and outtake. Daily weights. Discuss with Cardiology need for AICD. Cardiology on board. NSTEMI: ASA 81 mg PO QD. Lipitor 80 mg PO QD. Metoprolol as above. Heparin drip at 16.36 units/kg/hr. Plans for medical management for now. Unsure why patient was started on on Amiodarone. Cardiology on board. CKD stage IIIb at baseline. Objective - Vital Signs Vital signs: Vital Signs Temp 98.2 F 05/07/24 11:15 Pulse 71 05/07/24 13:02 Resp 20 05/07/24 11:15 BP 101/58 05/07/24 11:15 Pulse Ox 95 05/07/24 11:15 FiO2 Intake & Output 05/06/24 05/07/24 05/07/24 18:59 06:59 18:59 Intake Total 164.462 85.538 548.038 Output Total 1300 1450 300 Balance -1135.538 -1364.462 248.038 Weight 86.9 kg Intake: Intake, IV Titration 164.462 85.538 108.038 Amount Heparin Sod,Pork in 0.45% 164.462 85.538 108.038 NaCl 25,000 unit In 0.45 % NaCl 1 250ml.bag @ 11. 36 UNITS/KG/HR 9.996 mls/ hr IV .Q24H [facility] Rx#: [id number] Oral 440 Output: Urine 1300 1450 300 Other: Voiding Method Urinal - Labs CBC & Chem 7: 05/07/24 06:07 05/07/24 06:07 Labs: Abnormal Lab Results - Last 24 Hours (Table) 05/06/24 05/07/24 05/07/24 Range/Units 14:39 06:07 06:07 RBC (4.30-5.90) m/uL Neutrophils # (1.3-7.7) k/uL APTT 45.3 H 39.0 H (22.0-30.0) sec BUN (9-20) mg/dL Creatinine (0.66-1.25) mg/dL Glucose (74-99) mg/dL HDL Cholesterol 37.00 L (40.00-60.00) mg/dL 05/07/24 05/07/24 05/07/24 Range/Units 06:07 06:07 13:00 RBC 4.22 L (4.30-5.90) m/uL Neutrophils # 8.4 H (1.3-7.7) k/uL APTT 47.9 H (22.0-30.0) sec BUN 23 H (9-20) mg/dL Creatinine 1.52 H (0.66-1.25) mg/dL Glucose 101 H (74-99) mg/dL HDL Cholesterol (40.00-60.00) mg/dL
[2024-05-08 07:01] LABS: Basophils % (A) 0 %; Eosinophils # (A) 0.1 k/uL (0-0.7); Eosinophils % (A) 2 %; HCT 36.8 % (39.0-53.0); HGB 12.2 gm/dL (13.0-17.5); Lymphocytes # (A) 1.1 k/uL (1.0-4.8); Lymphocytes % (A) 14 %; MCH 31.4 pg (25.0-35.0); MCHC 33.3 g/dL (31.0-37.0); MCV 94.4 fL (80.0-100.0); Mean Platelet Volume 8.2; Monocytes # (A) 0.6 k/uL (0-1.0); Monocytes % (A) 7 %; Neutrophils # (A) 6.2 k/uL (1.3-7.7); Neutrophils % (A) 75 %; Platelet Count 203 k/uL (150-450); RDW 14.8 % (11.5-15.5); WBC 8.3 k/uL (3.8-10.6)
[2024-05-08 07:17] LABS: ALT 14 U/L (4-49); AST 34 U/L (17-59); African American GFR (CKD) 39 (>60 ml/min/1.73 sqM); Albumin 3.1 g/dL (3.5-5.0); Alkaline Phosphatase 55 U/L (38-126); Anion Gap 6 mmol/L; Blood Urea Nitrogen 32 mg/dL (9-20); Calcium 8.6 mg/dL (8.4-10.2); Carbon Dioxide 26 mmol/L (22-30); Chloride 103 mmol/L (98-107); Glucose 94 mg/dL (74-99); Non-African American GFR(CKD) 34 (>60 ml/min/1.73 sqM); Potassium 4.2 mmol/L (3.5-5.1); Sodium 135 mmol/L (137-145); Total Bilirubin 1.7 mg/dL (0.2-1.3); Total Protein 5.8 g/dL (6.3-8.2)
[2024-05-08] MEDS: DAPAGLIFLOZIN PROPANEDIOL 10 MG TABLET PO SCH (07:33)
[2024-05-08 07:38] VITALS: TEMP 97.6
[2024-05-08 10:18] LABS: T4, Free (Free Thyroxine) 1.56 ng/dL (0.78-2.19)
--- NOTE | 2024-05-08 10:52 | P.PN ---
Subjective Progress Note Date: 05/08/24 HPI: This gentleman has no further chest pain and is comfortable resting maintaining sinus rhythm. He has ischemic cardiomyopathy chronic kidney disease. Unfortunately following the contrast exposure with CT angiogram his creatinine has gone up. I hydrated him and will continue to hydrate him till this evening. He can be discharged but no Lasix here to start Lasix at 20 mg in the morning daily can be discharged follow-up with PCP and come back and see Dr. Clark in 2 weeks. Patient, daughter and are aware of the fact that his prognosis and is poor and options are limited. PHYSICIAL EXAM: Vitals are stable JVD is 1 cm no carotid bruit S1-S2 heard normally no significant murmurs lungs reveal improved air entry abdomen is soft lower extremities reveal diminished pulses trace edema normal [employer]AIL AND [employer]OM[employer]IONS COORDINATOR exam no focal deficits. IMPRESSION: 1. Ischemic cardiomyopathy. 2. Acute on chronic kidney disease. 3. Benign hypertension. 4. Hypercholesterolemia. 5.. RECOMMENDATIONS: Continue hydration okay for discharge options are limited and prognosis is poor, patient and family are aware, to go home on current medications and stay hydrated orally Lasix to be started tomorrow at 20 mg to follow-up with PCP and cardiology. Objective - Vital Signs Vital signs: Vital Signs Temp 97.6 F 05/08/24 07:24 Pulse 79 05/08/24 07:24 Resp 18 05/08/24 07:24 BP 110/62 05/08/24 07:24 Pulse Ox 95 05/08/24 07:37 FiO2 Intake & Output 05/07/24 05/08/24 05/08/24 18:59 06:59 18:59 Intake Total 810.000 10 350 Output Total 1000 525 400 Balance -190.000 -515 -50 Weight 87.5 kg Intake: IV 10 Invasive Line 1 10 Intake, IV Titration 250.000 Amount Heparin Sod,Pork in 0.45% 250.000 NaCl 25,000 unit In 0.45 % NaCl 1 250ml.bag @ 11. 36 UNITS/KG/HR 9.996 mls/ hr IV .Q24H [facility] Rx#: [id number] Oral 560 350 Output: Urine 1000 525 400 Other: Voiding Method Urinal Urinal Urinal # Voids 2 - Labs CBC & Chem 7: 05/08/24 06:11 05/08/24 06:11 Labs: Abnormal Lab Results - Last 24 Hours (Table) 05/07/24 05/08/24 05/08/24 Range/Units 13:00 06:11 06:11 RBC (4.30-5.90) m/uL Hgb (13.0-17.5) gm/dL Hct (39.0-53.0) % APTT 47.9 H 49.2 H (22.0-30.0) sec Sodium 135 L (137-145) mmol/L BUN 32 H (9-20) mg/dL Creatinine 1.77 H (0.66-1.25) mg/dL Total Bilirubin 1.7 H (0.2-1.3) mg/dL Total Protein 5.8 L (6.3-8.2) g/dL Albumin 3.1 L (3.5-5.0) g/dL 05/08/24 Range/Units 06:11 RBC 3.90 L (4.30-5.90) m/uL Hgb 12.2 L (13.0-17.5) gm/dL Hct 36.8 L (39.0-53.0) % APTT (22.0-30.0) sec Sodium (137-145) mmol/L BUN (9-20) mg/dL Creatinine (0.66-1.25) mg/dL Total Bilirubin (0.2-1.3) mg/dL Total Protein (6.3-8.2) g/dL Albumin (3.5-5.0) g/dL
[2024-05-08 12:00] VITALS: BP 109/52; PULSE 72; RESP 16
--- NOTE | 2024-05-08 16:34 | P.DS ---
Providers Date of admission: 05/06/24 00:18 Expected date of discharge: 05/08/24 Attending physician: Shahid Krueger MD Consults: 05/06/24 00:16 Consult Physician Urgent Consulting Provider: Gerald Price Consult Reason/Comments: nstemi Do you want consulting provider notified?: Yes Primary care physician: [facility] Hospital Course: Discharge diagnoses; #. Non-ST elevated [place] # Systolic CHF exacerbation #. CKD Stage IIIb #. Hyperkalemia Hospital course; Patient is a 89-year-old male with a history of systolic CHF (Echo 12/2023 showed EF 20 to 25%, managed by Dr. Salinas), hypertension, and CVA (2017) was transferred from [place] with a complaint of shortness of breath and leg swelling. The patient notes that roughly 5 days ago his was contacted by one of his physicians who advised him to discontinue his diuretics. The patient doesn't recall the reason and who exactly was the physician. 2 days ago on 05/04 patient noted exertional dyspnea relieved with rest with associated bilateral leg swelling along with productive cough with yellow sputum. Shortness of breath worsened in Saturday afternoon 05/05 which led him to seek care at the [place] ED. He denies chest pain, nausea, vomiting diaphoresis, dizziness, weakness, leg pain, abdominal pain, changes in vision, weakness, facial asymmetry, changes in voice, or fever. At [place] ED, patient had elevated troponin of 0.98 and elevated D-dimer of 2.95. Patient was assessed as an NSTEMI and was transferred to our facility for higher care. In the emergency room, EKG showed sinus rhythm with a rate of 82 QRS wide at [address] depression in leads II, III, aVF V5 and V6 QTc 435. CT angiography from [place] ED showed negative for pulmonary embolism with enlarged heart with asymmetric enlarged left ventricle, upper lobe centrilobular emphysema Labs from ED [place] showed WBC 9.4, hemoglobin 13.2, hematocrit 39, MCV 90.5, platelet 212, neutrophils 77.6, lymphocytes 10, monocytes 8.9, eosinophils 2.6, basophils 0.5, PT 10.6, INR 1.1, PTT 24.4, sodium 137, potassium 5.2, chloride 110, bicarb of 20, anion gap 7, BUN 24, creatinine 1.3, GFR -Portuguese 63, GFR non- 52, glucose 106, calcium 9.2, albumin 3.8, alk phos 54, ALT 15, AST 34, total bilirubin 1.3, BNP 2877. On admission, patient was afebrile at 97.5 Fahrenheit with a pulse rate of 85 respiratory rate 19 blood pressure 110/63 satting at 97% with 2 L nasal cannula During hospital stay patient was treated for NSTEMI. Initial EKG showed diffuse ST depressions. Troponin peak 0.667. Echocardiogram estimated EF less than 20%, severely impaired LV systolic function with moderate to severe mitral and tricuspid regurgitation and severe pulmonary hypertension. Patient was also treated for acute on chronic systolic CHF exacerbation. During this time he also developed MINDY upon CKD stage IIIb initial creatinine 1.32 => 1.77. And treated with 50 cc/h IV fluids. He was also found to have hyperkalemia which resolved. He was seen by cardiology, recommended to start on Lasix 20 mg twice daily, Lipitor 80 mg daily, amiodarone 200 mg daily, losartan 25 mg daily, Imdur 30 mg daily, metoprolol succinate 25 mg daily. Patient is discharged to home in stable condition. It is advised that patient began Lasix starting tomorrow. He is also to continue new medications as above. He is to follow-up with his PCP to repeat blood work to monitor kidney function and with Dr. Clark cardiology. Physical examination: Vital signs reviewed General: non toxic, no distress, appears at stated age, normal weight Derm: no unusual rashes/lesions, warm Head: atraumatic, normocephalic, symmetric Eyes: EOMI, no lid lag, anicteric sclera, pupils equal round reactive to light ENT: Nose and ears atraumatic Neck: No cervical lymphadenopathy, trachea midline, supple Mouth: no lip lesion, mucus membranes moist Cardiovascular: S1S2 reg, no murmur, no pitting edema Lungs: CTA bilateral, normal breath sounds bilaterally, no crackles or wheezing, no accessory muscle use Abdominal: soft, nontender to palpation, no guarding Ext: muscle strength 5 out of 5 in all 4 extremities grossly, no gross muscle atrophy, no contractures, positive dorsalis pedis pulse bilateral, no pitting edema Neuro: CN II-XI grossly intact, no gross focal neuro deficits Psych: Alert, oriented, appropriate affect and mood Dictation was produced using [employer] dictation software. please excuse any grammatical, word or spelling errors. A total of 32 minutes of time were spent preparing this complex discharge summary. Patient was discharged on 05/08/2024 at 1027. I have seen and evaluated the patient today. Discussed with the resident and agree with the residents finding and plan as documented in the resident's note. Changes highlighted in blue font. Patient Condition at Discharge: Stable Plan - Discharge Summary Discharge Rx Participant: Yes New Discharge Prescriptions: New Furosemide [Lasix] 20 mg PO BID #60 tab Atorvastatin [Lipitor] 80 mg PO DAILY #60 tab Amiodarone [Cordarone] 200 mg PO DAILY #60 tab Losartan [Cozaar] 25 mg PO DAILY #60 tab Isosorbide Mononitrate ER [Imdur] 30 mg PO DAILY #60 tab Metoprolol Succinate (ER) [Toprol XL] 25 mg PO DAILY #60 tab Continue Febuxostat [Uloric] 40 mg PO DAILY Dapagliflozin Propanediol [Farxiga] 10 mg PO DAILY #30 tab Cholecalciferol [Vitamin D3 (25 Mcg = 1000 Iu)] 25 mcg PO DAILY Ascorbic Acid [Vitamin C] 500 mg PO DAILY Aspirin 81 mg PO DAILY #30 tab Discontinued Atorvastatin [Lipitor] 40 mg PO HS Losartan Potassium 100 mg PO DAILY Empagliflozin [Jardiance] 10 mg PO DAILY Discharge Medication List Febuxostat [Uloric] 40 mg PO DAILY 01/15/24 [History] Aspirin 81 mg PO DAILY #30 tab 01/18/24 [Rx] Dapagliflozin Propanediol [Farxiga] 10 mg PO DAILY #30 tab 01/18/24 [Rx] Ascorbic Acid [Vitamin C] 500 mg PO DAILY 05/06/24 [History] Cholecalciferol [Vitamin D3 (25 Mcg = 1000 Iu)] 25 mcg PO DAILY 05/06/24 [History] Amiodarone [Cordarone] 200 mg PO DAILY #60 tab 05/08/24 [Rx] Atorvastatin [Lipitor] 80 mg PO DAILY #60 tab 05/08/24 [Rx] Furosemide [Lasix] 20 mg PO BID #60 tab 05/08/24 [Rx] Isosorbide Mononitrate ER [Imdur] 30 mg PO DAILY #60 tab 05/08/24 [Rx] Losartan [Cozaar] 25 mg PO DAILY #60 tab 05/08/24 [Rx] Metoprolol Succinate (ER) [Toprol XL] 25 mg PO DAILY #60 tab 05/08/24 [Rx] Follow up Appointment(s)/Referral(s): Matthew Clark MD [STAFF PHYSICIAN] - 05/18/24 2:15 pm [facility],Clinic [Primary Care Provider] - 05/13/24 8:00 am Patient Instructions/Handouts: Heart Failure (DC), Acute Kidney Injury (DC) Activity/Diet/Wound Care/Special Instructions: Please start your Lasix tomorrow. Please follow up with PCP and repeat blood work to monitor kidney function per your scheduled appointment. Also follow up with your pullman conductor. Discharge Disposition: HOME SELF-CARE
== END 2024-05-08 13:44 | disposition home or self-care (01) | DRG 280 ==
LOC: EC 23:21 → OBSVTOIN 05-06 00:18 → 3SCARD 05-06 00:18
PROVIDERS: ADMIT Internal Medicine; ATTEND Internal Medicine
DX: I21.4 Non-ST elevation (NSTEMI) myocardial infarction (principal); I50.23 Acute on chronic systolic (congestive) heart failure; I13.0 Hypertensive heart and chronic kidney disease with heart failure and stage 1 through stage 4 chronic kidney disease, or unspecified chronic kidney disease; N17.9 Acute kidney failure, unspecified; E87.5 Hyperkalemia; I25.10 Atherosclerotic heart disease of native coronary artery without angina pectoris; I25.5 Ischemic cardiomyopathy; I27.20 Pulmonary hypertension, unspecified; N18.32 Chronic kidney disease, stage 3b; E78.00 Pure hypercholesterolemia, unspecified; I08.1 Rheumatic disorders of both mitral and tricuspid valves; R54 Age-related physical debility; Z96.653 Presence of artificial knee joint, bilateral; Z79.82 Long term (current) use of aspirin; Z79.84 Long term (current) use of oral hypoglycemic drugs; Z79.899 Other long term (current) drug therapy; Z86.73 Personal history of transient ischemic attack (TIA), and cerebral infarction without residual deficits; Z87.891 Personal history of nicotine dependence
CPT/HCPCS: 36415; 80048; 80053; 80061; 84439; 84443; 84484; 85025; 85730; 93005; 93308; 94760; 96365; 96366; 96375; 96376; 99291

== ENCOUNTER 2024-05-15 15:43 | Inpatient (IN) | payer OTHER, MEDICARE ==
--- NOTE | 2024-05-15 16:10 | ED ---
SOB HPI - General Chief Complaint: Shortness of Breath Stated Complaint: SOB Time Seen by Provider: 05/15/24 15:44 Source: patient, EMS, RN notes reviewed, old records reviewed Mode of arrival: EMS Limitations: no limitations - History of Present Illness Initial Comments: This is an 89-year-old male to the ER today. This patient presents today for evaluation of shortness of breath with chest pain. Persistent shortness of breath here in the ER with history of atrial fibrillation he does have a mild cough no travel no sick contacts 9 current fever. MD Complaint: shortness of breath, cough -: hour(s) Severity: moderate Severity scale (1-10): 7 Consistency: constant Improves With: nothing Worsens With: exertion Known History Of: congestive heart failure Context: recent illness Associated Symptoms: chest pain Treatments Prior to Arrival: none - Related Data Home Medications Medication Instructions Recorded Confirmed Febuxostat [Uloric] 40 mg PO DAILY 01/15/24 05/15/24 Ascorbic Acid [Vitamin C] 500 mg PO DAILY 05/06/24 05/15/24 Cholecalciferol [Vitamin D3 (25 25 mcg PO DAILY 05/06/24 05/15/24 Mcg = 1000 Iu)] Previous Rx's Medication Instructions Recorded Aspirin 81 mg PO DAILY #30 tab 01/18/24 Dapagliflozin Propanediol [Farxiga] 10 mg PO DAILY #30 tab 01/18/24 Amiodarone [Cordarone] 200 mg PO DAILY #60 tab 05/08/24 Atorvastatin [Lipitor] 80 mg PO DAILY #60 tab 05/08/24 Isosorbide Mononitrate ER [Imdur] 30 mg PO DAILY #60 tab 05/08/24 Losartan [Cozaar] 25 mg PO DAILY #60 tab 05/08/24 Metoprolol Succinate (ER) [Toprol 25 mg PO DAILY #60 tab 05/08/24 XL] Clopidogrel [Plavix] 75 mg PO DAILY 30 Days #30 tab 05/19/24 Furosemide [Lasix] 40 mg PO BID@0900,1600 30 Days #60 05/19/24 tab Allergies Allergy/AdvReac Type Severity Reaction Status Date / Time No Known Allergies Allergy Verified 05/15/24 18:23 Review of Systems ROS Statement: Those systems with pertinent positive or pertinent negative responses have been documented in the HPI. ROS Other: All systems not noted in ROS Statement are negative. Past Medical History Past Medical History: Heart Failure, CVA/TIA, Hyperlipidemia, Hypertension Additional Past Medical History / Comment(s): recent adm. to [facility] for SOB, CHF, SOB w/exertion much improved per pt., some swelling lower extremities, stroke 2018-no residual effects, rheumatic fever @age of 14 History of Any Multi-Drug Resistant Organisms: None Reported Past Surgical History: Back Surgery, Joint Replacement Additional Past Surgical History / Comment(s): thu knee replacements, masoud in neck from surg., right ear surg.years ago for ruptured eardrum Past Anesthesia/Blood Transfusion Reactions: No Reported Reaction Past Psychological History: No Psychological Hx Reported Smoking Status: Former smoker Past Alcohol Use History: None Reported Past Drug Use History: None Reported - Past Family History Mother Family Medical History: Hyperlipidemia General Exam Limitations: no limitations General appearance: alert, in no apparent distress Head exam: Present: atraumatic, normocephalic, normal inspection Eye exam: Present: normal appearance, PERRL, EOMI. Absent: scleral icterus, conjunctival injection, periorbital swelling ENT exam: Present: normal exam, mucous membranes moist Neck exam: Present: normal inspection. Absent: tenderness, meningismus, lymphadenopathy Respiratory exam: Present: normal lung sounds bilaterally. Absent: respiratory distress, wheezes, rales, rhonchi, stridor Cardiovascular Exam: Present: regular rate, normal rhythm, normal heart sounds. Absent: systolic murmur, diastolic murmur, rubs, gallop, clicks GI/Abdominal exam: Present: soft, normal bowel sounds. Absent: distended, tenderness, guarding, rebound, rigid Extremities exam: Present: normal inspection, full ROM, normal capillary refill. Absent: tenderness, pedal edema, joint swelling, calf tenderness Back exam: Present: normal inspection Neurological exam: Present: alert, oriented X3, CN II-XII intact Psychiatric exam: Present: normal affect, normal mood Skin exam: Present: warm, dry, intact, normal color. Absent: rash Course Vital Signs 05/15/24 05/15/24 05/15/24 15:52 15:55 16:54 Temperature 97.4 F L Pulse Rate 58 L 60 Pulse Rate [ Pulse Oximetery ] Respiratory 18 18 Rate Blood Pressure 110/69 O2 Sat by Pulse 98 Oximetry 05/15/24 05/15/24 05/15/24 17:07 18:24 20:00 Temperature Pulse Rate 62 63 61 Pulse Rate [ Pulse Oximetery ] Respiratory 18 18 Rate Blood Pressure 117/64 125/65 O2 Sat by Pulse 98 95 Oximetry 05/15/24 05/15/24 05/15/24 21:00 22:00 23:00 Temperature Pulse Rate 62 56 L 56 L Pulse Rate [ Pulse Oximetery ] Respiratory 16 18 18 Rate Blood Pressure 108/60 109/65 108/60 O2 Sat by Pulse 96 96 95 Oximetry 05/16/24 05/16/24 05/16/24 00:00 04:00 06:00 Temperature Pulse Rate 64 62 68 Pulse Rate [ Pulse Oximetery ] Respiratory 16 18 18 Rate Blood Pressure 118/69 113/63 119/67 O2 Sat by Pulse 96 96 95 Oximetry 05/16/24 05/16/24 05/16/24 07:50 08:19 12:38 Temperature Pulse Rate 76 55 L Pulse Rate [ Pulse Oximetery ] Respiratory 18 18 Rate Blood Pressure 121/66 104/52 O2 Sat by Pulse 94 L 94 L 96 Oximetry 05/16/24 05/16/24 05/16/24 14:00 17:00 19:00 Temperature Pulse Rate 62 67 59 L Pulse Rate [ Pulse Oximetery ] Respiratory 18 16 18 Rate Blood Pressure 110/62 111/58 101/55 O2 Sat by Pulse 95 97 96 Oximetry 05/16/24 05/16/24 05/16/24 19:58 21:01 22:43 Temperature 97.6 F Pulse Rate 63 61 60 Pulse Rate [ Pulse Oximetery ] Respiratory 12 16 18 Rate Blood Pressure 101/55 101/59 102/62 O2 Sat by Pulse 93 L 94 L 95 Oximetry 05/17/24 05/17/24 05/17/24 00:28 01:41 01:58 Temperature 98.2 F Pulse Rate 65 64 Pulse Rate [ Pulse Oximetery ] Respiratory 16 18 Rate Blood Pressure 108/68 112/61 O2 Sat by Pulse 96 97 Oximetry 05/17/24 02:00 Temperature Pulse Rate Pulse Rate [ 82 Pulse Oximetery ] Respiratory 16 Rate Blood Pressure O2 Sat by Pulse Oximetry - Reevaluation(s) Reevaluation #1: 05/15/24 17:50 Medical records reviewed Reevaluation #2: 05/15/24 17:50 Patient symptoms unchanged Reevaluation #3: 05/15/24 17:50 Patient informed of results and questions answered Reevaluation #4: Was pt. sent in by a medical professional or institution (LAURA Ch, CONTINUOUS YARN DYEING MACHINE OPERATOR, urgent care, hospital, or fpc...) When possible be specific @ -no Did you speak to anyone other than the patient for history (EMS, parent, family, police, friend...)? What history was obtained from this source @ -no Did you review nursing and triage notes (agree or disagree)? Why? @ -agree Are old charts reviewed (outside hosp., previous admission, EMS record, old EKG, old radiological studies, urgent care reports/EKG's, fpc records)? Report findings @ -yes Differential Diagnosis (chest pain, altered mental status, abdominal pain women, abdominal pain men, vaginal bleeding, weakness, fever, dyspnea, syncope, headache, dizziness, GI bleed, back pain, seizure, CVA, palpatations, mental health, musculoskeletal)? @ -prior EKG interpreted by me (3pts min.). @ -yes X-rays interpreted by me (1pt min.). @ -yes negative for acute disease CT interpreted by me (1pt min.). @ -no U/S interpreted by me (1pt. min.). @ -no What testing was considered but not performed or refused? (CT, X-rays, U/S, labs)? Why? @ -none What meds were considered but not given or refused? Why? @ -none Did you discuss the management of the patient with other professionals (professionals i.e. LAURA Ch, CONTINUOUS YARN DYEING MACHINE OPERATOR, lab, RT, psych nurse, social media manager, trade facilitator, teacher, disability insurance hearing officer, pillowcase sewer)? Give summary @ -no Was smoking cessation discussed for >3mins.? @ -no Was critical care preformed (if so, how long)? @ -yes31 Were there social determinants of health that impacted care today? How? (Homelessness, low income, unemployed, alcoholism, drug addiction, transportation, low edu. Level, literacy, decrease access to med. care, fdc, rehab)? @ -none Was there de-escalation of care discussed even if they declined (Discuss DNR or withdrawal of care, Hospice)? DNR status @ -no What co-morbidities impacted this encounter? (DM, HTN, Smoking, COPD, CAD, Cancer, CVA, ARF, Chemo, Hep., AIDS, mental health diagnosis, sleep apnea, morbid obesity)? @ -none Was patient admitted / discharged? Hospital course, mention meds given and route, prescriptions, significant lab abnormalities, going to OR and other pertinent info. @ - 89 male to the ER for evaluation of significant severe CHF with shortness of breath mildly elevated troponin will admit for cardiology to see and treat Discharge Undiagnosed new problem with uncertain prognosis? @ -no Drug Therapy requiring intensive monitoring for toxicity (Heparin, Nitro, Insulin, Cardizem)? @ -no Were any procedures done? @ -no Diagnosis/symptom? @ -Severe CHF shortness of breath Acute, or Chronic, or Acute on Chronic? @ -Acute Uncomplicated (without systemic symptoms) or Complicated (systemic symptoms)? @ -Complicated Side effects of treatment? @ -no Exacerbation, Progression, or Severe Exacerbation? @ -exacerbation Poses a threat to life or bodily function? How? (Chest pain, [place], [place], pneumonia, PE, COPD, DKA, ARF, appy, cholecystitis, CVA, Diverticulitis, Homicidal, Suicidal, threat to staff... and all critical care pts) @ -yes extremes of age Reevaluation #5: Differential Dyspnea: Coronary syndrome, arrhythmia, tamponade, asthma, COPD, pulmonary embolism, pneumonia, pneumothorax, pulmonary effusion, anaphylaxis, diabetic ketoacidosis, flailed chest, pulmonary contusion, diaphragmatic rupture, anemia, neuromuscular, this is not meant to be an all-inclusive list. Differential Palpitations Ventricular arrhythmias, atrial arrhythmias, myocardial infarction, anemia, thyrotoxicosis, electrolyte imbalance, hypokalemia, pulmonary embolism, pulmonary disease, drugs, alcohol, anxiety, stress.... This is not meant to be an all-inclusive list. Medical Decision Making - Medical Decision Making 89 male to the ER for evaluation of significant severe CHF with shortness of breath mildly elevated troponin will admit for cardiology to see and treat - Lab Data Result diagrams: 05/18/24 06:50 05/18/24 06:50 Lab Results 05/15/24 05/15/24 05/15/24 Range/Units 16:20 16:20 16:20 WBC 7.0 (3.8-10.6) k/uL RBC 3.95 L (4.30-5.90) m/uL Hgb 12.5 L (13.0-17.5) gm/dL Hct 38.2 L (39.0-53.0) % MCV 96.7 (80.0-100.0) fL MCH 31.5 (25.0-35.0) pg MCHC 32.6 (31.0-37.0) g/dL RDW 14.8 (11.5-15.5) % Plt Count 214 (150-450) k/uL MPV 8.9 Neutrophils % 73 % Lymphocytes % 14 % Monocytes % 7 % Eosinophils % 3 % Basophils % 0 % Neutrophils # 5.1 (1.3-7.7) k/uL Lymphocytes # 1.0 (1.0-4.8) k/uL Monocytes # 0.5 (0-1.0) k/uL Eosinophils # 0.2 (0-0.7) k/uL Basophils # 0.0 (0-0.2) k/uL PT 11.0 (10.0-12.5) sec INR 1.0 (<1.2) APTT 22.0 (22.0-30.0) sec Sodium 136 L (137-145) mmol/L Potassium 5.2 H (3.5-5.1) mmol/L Chloride 102 (98-107) mmol/L Carbon Dioxide 23 (22-30) mmol/L Anion Gap 11 mmol/L BUN 36 H (9-20) mg/dL Creatinine 1.55 H (0.66-1.25) mg/dL Est GFR (CKD-EPI)AfAm 46 (>60 ml/min/1.73 sqM) Est GFR (CKD-EPI)NonAf 40 (>60 ml/min/1.73 sqM) Glucose 104 H (74-99) mg/dL Calcium 8.7 (8.4-10.2) mg/dL Magnesium 1.9 (1.6-2.3) mg/dL Total Bilirubin 1.4 H (0.2-1.3) mg/dL AST 43 (17-59) U/L ALT 21 (4-49) U/L Alkaline Phosphatase 36 L (38-126) U/L Troponin I (0.000-0.034) ng/mL NT-Pro-B Natriuret Pep 08832 pg/mL Total Protein 6.6 (6.3-8.2) g/dL Albumin 3.7 (3.5-5.0) g/dL 05/15/24 Range/Units 16:20 WBC (3.8-10.6) k/uL RBC (4.30-5.90) m/uL Hgb (13.0-17.5) gm/dL Hct (39.0-53.0) % MCV (80.0-100.0) fL MCH (25.0-35.0) pg MCHC (31.0-37.0) g/dL RDW (11.5-15.5) % Plt Count (150-450) k/uL MPV Neutrophils % % Lymphocytes % % Monocytes % % Eosinophils % % Basophils % % Neutrophils # (1.3-7.7) k/uL Lymphocytes # (1.0-4.8) k/uL Monocytes # (0-1.0) k/uL Eosinophils # (0-0.7) k/uL Basophils # (0-0.2) k/uL PT (10.0-12.5) sec INR (<1.2) APTT (22.0-30.0) sec Sodium (137-145) mmol/L Potassium (3.5-5.1) mmol/L Chloride (98-107) mmol/L Carbon Dioxide (22-30) mmol/L Anion Gap mmol/L BUN (9-20) mg/dL Creatinine (0.66-1.25) mg/dL Est GFR (CKD-EPI)AfAm (>60 ml/min/1.73 sqM) Est GFR (CKD-EPI)NonAf (>60 ml/min/1.73 sqM) Glucose (74-99) mg/dL Calcium (8.4-10.2) mg/dL Magnesium (1.6-2.3) mg/dL Total Bilirubin (0.2-1.3) mg/dL AST (17-59) U/L ALT (4-49) U/L Alkaline Phosphatase (38-126) U/L Troponin I 0.120 H* (0.000-0.034) ng/mL NT-Pro-B Natriuret Pep pg/mL Total Protein (6.3-8.2) g/dL Albumin (3.5-5.0) g/dL - EKG Data -: EKG Interpreted by Me (EKG is sinus 60 MD 171 QRS 143 QTc 469) - Radiology Data Radiology results: report reviewed (Chest x-ray is positive for pneumonia), image reviewed Critical Care Time Critical Care Time: Yes Total Critical Care Time: 31 Disposition Clinical Impression: Congestive heart failure, Elevated troponin, NSTEMI (non-ST elevated myocardial infarction), Acute pulmonary edema, Community acquired pneumonia Disposition: ADMITTED IP TO THIS HOSP Condition: Stable Is patient prescribed a controlled substance at d/c from ED?: No Time of Disposition: 17:50
[2024-05-15 16:28] LABS: Basophils % (A) 0 %; Eosinophils # (A) 0.2 k/uL (0-0.7); Eosinophils % (A) 3 %; HCT 38.2 % (39.0-53.0); HGB 12.5 gm/dL (13.0-17.5); Lymphocytes % (A) 14 %; MCH 31.5 pg (25.0-35.0); MCHC 32.6 g/dL (31.0-37.0); MCV 96.7 fL (80.0-100.0); Mean Platelet Volume 8.9; Monocytes # (A) 0.5 k/uL (0-1.0); Monocytes % (A) 7 %; Neutrophils # (A) 5.1 k/uL (1.3-7.7); Neutrophils % (A) 73 %; Platelet Count 214 k/uL (150-450); RBC 3.95 m/uL (4.30-5.90); RDW 14.8 % (11.5-15.5)
--- NOTE | 2024-05-15 16:38 | XR ---
EXAMINATION TYPE: XR chest 1V portable DATE OF EXAM: 05/15/2024 COMPARISON: 01/14/2024 INDICATION: Short of breath TECHNIQUE: Single frontal view of the chest is obtained. FINDINGS: The heart size is normal. The pulmonary vasculature is normal. Mild infiltrates in the right lower lobe. Correlate for atelectasis or pneumonia. IMPRESSION: 1. Small developing infiltrate along the right diaphragm. Correlate for atelectasis or pneumonia. [facility], Workstation: [id number], 05/15/2024 4:36 PM
[2024-05-15 16:39] LABS: ALT 21 U/L (4-49); African American GFR (CKD) 46 (>60 ml/min/1.73 sqM); Anion Gap 11 mmol/L; Blood Urea Nitrogen 36 mg/dL (9-20); Calcium 8.7 mg/dL (8.4-10.2); Carbon Dioxide 23 mmol/L (22-30); Chloride 102 mmol/L (98-107); Glucose 104 mg/dL (74-99); Non-African American GFR(CKD) 40 (>60 ml/min/1.73 sqM); Sodium 136 mmol/L (137-145)
[2024-05-15 16:47] LABS: NT-Pro-B-Type Natriuretic Pept 26300 pg/mL
[2024-05-15 16:50] LABS: AST 43 U/L (17-59); Albumin 3.7 g/dL (3.5-5.0); Alkaline Phosphatase 36 U/L (38-126); Magnesium 1.9 mg/dL (1.6-2.3); Potassium 5.2 mmol/L (3.5-5.1); Total Protein 6.6 g/dL (6.3-8.2)
[2024-05-15 16:51] LABS: Total Bilirubin 1.4 mg/dL (0.2-1.3)
[2024-05-15] MEDS: IPRATROPIUM-ALBUTEROL 3 ML NEB INHALATION STA (16:53)
[2024-05-15] MEDS ORDERED: NALOXONE 0.4 MG/ML 1 ML VIAL IV PRN (17:43)
[2024-05-15] MEDS ORDERED: IPRATROPIUM-ALBUTEROL 3 ML NEB INHALATION PRN (17:43)
[2024-05-15] MEDS ORDERED: ONDANSETRON 4 MG/2 ML VIAL IVP PRN (17:43)
[2024-05-15] MEDS ORDERED: MORPHINE SULFATE 4 MG/ML SYRINGE IV PRN (17:43)
[2024-05-15] MEDS ORDERED: PNEUMONIA PROTOCOL UTILIZED 1 EACH MISC PO PRN (17:43)
[2024-05-15] MEDS: SODIUM CHLORIDE 0.9% 1,000 ML IV SCH (18:20)
[2024-05-15] MEDS: AZITHROMYCIN 500 MG in SODIUM CHLORIDE 0.9% 250 ML IVPB STA (20:03)
--- NOTE | 2024-05-15 20:26 | P.HPIM ---
History of Present Illness H&P Date: 05/15/24 Chief Complaint: SOB Patient is a 89-year-old male with CKD stage III, systolic CHF (echo on 04/2024 EF at 20%. To see Dr. Dr. Price), A-fib, hypertension, hyperlipidemia, and a history of CAD, CVA who came in for shortness of breath. , no associated fever, chills, wheezing , URI symptoms cough. he noticed chronic stable leg edema bilaterally. Of note, he was recently hospital ized and discharged on 05/08 about 1 week ago. He was recently admitted last 05/06 for evaluation of NSTEMI, acute on chronic CHF exacerbation with reduced ejection fraction , and hyperkalemia. he was diuresed and stablized and discharged Today on 05/15, patient Sudden onset shortness of breath at rest with associated dry cough with some clear sputum no hemoptysis and bilateral lower extremity leg swelling. yesterday and this morning he was feeling fine. He denied chest pain, leg pain, palpitations, focal weakness, changes in vision, facial asymmetry, fever, nausea or vomiting, dizziness, chills, or recent contacts. , no history of COPD Review of systems: Pertinent positives and negatives as discussed in HPI, a complete review of systems was performed and all other systems are negative. Social history: Tobacco: Former smoker. Quit 41 years ago. Smoked half a pack a day for 20 years Alcohol: Prior EtOH use. Quit 15 years ago Recreational drugs: Denies illicit drug use Travel: No recent travel Occupation: Retired Physical examination: Vital signs reviewed General: non toxic, no distress, appears at stated age Derm: no unusual rashes/lesions, warm Head: atraumatic, normocephalic, symmetric Eyes: EOMI, anicteric sclera, pupils equal round reactive to light ENT: Nose and ears atraumatic Neck: No masses or lesions grossly, trachea midline, supple Mouth: no lip lesion, mucus membranes moist Cardiovascular: S1S2 reg, no murmur Lungs: CTA bilateral, no rhonchi, no rales, no accessory muscle use Abdominal: soft, nondistended, nontender to palpation, no guarding Ext: muscle strength 5 out of 5 in all 4 extremities grossly, no gross muscle atrophy, no contractures, positive dorsalis pedis pulse bilateral, bilateral lower extremity +2 pitting edema Neuro: CN II-XI grossly intact, no gross focal neuro deficits Psych: Alert and oriented x 3, appropriate affect and mood Assessment/Plan: 89-year-old male with chronic systolic CHF (LVEF 20%) who came in for shortness of breath at rest and dry cough. Chest x-ray showed left lung infiltrate , without pulmonary vascular congestion or pleural effusion. ED documentation reviewed and agreed to admit this patient for acute on chronic CHF exacerbation . Anticipated length of stay less than 2 midnights for evaluation. #. Acute on chronic systolic CHF exacerbation, [place] [id number]. Sodium decreased at 136. Recent echo in 04/2024 showed ejection fraction of 20% -Fluid restriction 2000 cc daily daily weight -Low-salt diet -Monitor I&O strictly -Lasix 40 mg IVP twice daily -Metoprolol 25 mg p.o. daily -Losartan 25 mg p.o. daily -Imdur 30 mg p.o. daily -Farxiga 10 mg p.o. daily Chest x-ray showed positive infiltrate in left lung concerning for atelectasis vs pneumonia. but due to lack of significant pneumonia symptoms , WBC normal at 7. Patient is afebrile. I doubt pneumonia, patient received Rocephin 2 g IV piggyback , and Azithromycin 500mg PO once in the ED. continue to monitor off antibiotics -Tylenol 650 mg every 6 hours as needed for pain or fever -follow-up blood cultures -CBC at a.m. if patient becomes febrile , then will consider restarting antibiotics , he already received one time dose which should be good for the next 24 hours EKG showed normal sinus rhythm at [address]-T changes QTc at 469. Troponin c hronically elevated and flat at 0.120 -> 0.121. - cardiac monitoring -continue Aspirin 81 mg p.o. daily -Trend troponins -Consult cardiology #. CKD stage III, at baseline Creatinine elevated at 1.55 BUN elevated at 36 -BMP at a.m. monitor urine output avoid nephrotoxic meds #.Hyperkalemia, due to hemolysis K elevated at 5.2 -BMP at AM Chronic conditions: #. Hypertension: #. Hyperlipidemia: Lipitor 80 mg p.o. daily #. A-fib: Amiodarone 200 mg p.o. daily, not on anticoagulation -Resume home medications once reconciled DVT prophylaxis: Lovenox 40 mg SQ daily CODE STATUS: Full Discussed with: Pain Anticipated discharge place: Patient home Past Medical History Past Medical History: Heart Failure, CVA/TIA, Hyperlipidemia, Hypertension Additional Past Medical History / Comment(s): recent adm. to [facility] for SOB, CHF, SOB w/exertion much improved per pt., some swelling lower extremities, stroke 2018-no residual effects, rheumatic fever @age of 14 History of Any Multi-Drug Resistant Organisms: None Reported Past Surgical History: Back Surgery, Joint Replacement Additional Past Surgical History / Comment(s): thu knee replacements, masoud in neck from surg., right ear surg.years ago for ruptured eardrum Past Anesthesia/Blood Transfusion Reactions: No Reported Reaction Past Psychological History: No Psychological Hx Reported Smoking Status: Former smoker Past Alcohol Use History: None Reported Past Drug Use History: None Reported - Past Family History Mother Family Medical History: Hyperlipidemia Medications and Allergies Home Medications Medication Instructions Recorded Confirmed Type Febuxostat [Uloric] 40 mg PO DAILY 01/15/24 05/15/24 History Aspirin 81 mg PO DAILY #30 tab 01/18/24 05/15/24 Rx Dapagliflozin Propanediol [Farxiga] 10 mg PO DAILY #30 tab 01/18/24 05/15/24 Rx Ascorbic Acid [Vitamin C] 500 mg PO DAILY 05/06/24 05/15/24 History Cholecalciferol [Vitamin D3 (25 25 mcg PO DAILY 05/06/24 05/15/24 History Mcg = 1000 Iu)] Amiodarone [Cordarone] 200 mg PO DAILY #60 tab 05/08/24 05/15/24 Rx Atorvastatin [Lipitor] 80 mg PO DAILY #60 tab 05/08/24 05/15/24 Rx Furosemide [Lasix] 20 mg PO BID #60 tab 05/08/24 05/15/24 Rx Isosorbide Mononitrate ER [Imdur] 30 mg PO DAILY #60 tab 05/08/24 05/15/24 Rx Losartan [Cozaar] 25 mg PO DAILY #60 tab 05/08/24 05/15/24 Rx Metoprolol Succinate (ER) [Toprol 25 mg PO DAILY #60 tab 05/08/24 05/15/24 Rx XL] Allergies Allergy/AdvReac Type Severity Reaction Status Date / Time No Known Allergies Allergy Verified 05/15/24 18:23 Physical Exam Vitals: Vital Signs Temp Pulse Resp BP Pulse Ox 05/15/24 18:24 63 18 117/64 98 05/15/24 17:07 62 05/15/24 16:54 60 05/15/24 15:55 18 05/15/24 15:52 97.4 F L 58 L 18 110/69 98 Intake and Output 05/15/24 05/15/24 05/15/24 06:59 14:59 22:59 Other: Weight 88.904 kg Results CBC & Chem 7: 05/15/24 16:20 05/15/24 16:20 Labs: Abnormal Lab Results - Last 24 Hours (Table) 05/15/24 05/15/24 05/15/24 Range/Units 16:20 16:20 16:20 RBC 3.95 L (4.30-5.90) m/uL Hgb 12.5 L (13.0-17.5) gm/dL Hct 38.2 L (39.0-53.0) % Sodium 136 L (137-145) mmol/L Potassium 5.2 H (3.5-5.1) mmol/L BUN 36 H (9-20) mg/dL Creatinine 1.55 H (0.66-1.25) mg/dL Glucose 104 H (74-99) mg/dL Total Bilirubin 1.4 H (0.2-1.3) mg/dL Alkaline Phosphatase 36 L (38-126) U/L Troponin I 0.120 H* (0.000-0.034) ng/mL 05/15/24 Range/Units 18:18 RBC (4.30-5.90) m/uL Hgb (13.0-17.5) gm/dL Hct (39.0-53.0) % Sodium (137-145) mmol/L Potassium (3.5-5.1) mmol/L BUN (9-20) mg/dL Creatinine (0.66-1.25) mg/dL Glucose (74-99) mg/dL Total Bilirubin (0.2-1.3) mg/dL Alkaline Phosphatase (38-126) U/L Troponin I 0.121 H* (0.000-0.034) ng/mL Assessment and Plan Assessment: I have seen and evaluated the patient today. I Discussed the case with the resident and agree with the resident's findings I edited the assessment and plan as necessary as documented in the resident's note.
[2024-05-15] MEDS: FUROSEMIDE 20 MG TAB PO SCH (20:36)
[2024-05-15] MEDS: CLOPIDOGREL 75 MG TAB PO SCH (23:33)
[2024-05-15] MEDS: FUROSEMIDE 10 MG/ML 4 ML VIAL IV SCH (23:33)
--- NOTE | 2024-05-16 06:38 | XR ---
EXAMINATION TYPE: XR chest 1V DATE OF EXAM: 05/16/2024 COMPARISON: 05/15/2024 HISTORY: Shortness of breath TECHNIQUE: Single frontal view of the chest is obtained. FINDINGS: There is marked cardiomegaly and mild pulmonary vascular congestion. There is a partially consolidati ve opacity in the right lower lobe which has worsened slightly in the interval. There is no pneumothorax. There is no consolidation within the left lung. IMPRESSION: 1. Cardiomegaly in mild pulmonary vascular congestion. 2. Increasing opacification in the right lung base. [facility], , 05/16/2024 6:36 AM
[2024-05-16 07:02] LABS: Basophils % (A) 0 %; Eosinophils # (A) 0.1 k/uL (0-0.7); Eosinophils % (A) 2 %; HCT 38.3 % (39.0-53.0); HGB 12.3 gm/dL (13.0-17.5); Lymphocytes # (A) 0.9 k/uL (1.0-4.8); Lymphocytes % (A) 13 %; MCH 30.9 pg (25.0-35.0); MCHC 32.1 g/dL (31.0-37.0); MCV 96.3 fL (80.0-100.0); Mean Platelet Volume 8.6; Monocytes # (A) 0.5 k/uL (0-1.0); Monocytes % (A) 7 %; Neutrophils # (A) 5.5 k/uL (1.3-7.7); Neutrophils % (A) 76 %; Platelet Count 239 k/uL (150-450); RBC 3.98 m/uL (4.30-5.90); RDW 14.8 % (11.5-15.5); WBC 7.3 k/uL (3.8-10.6)
[2024-05-16 07:20] LABS: ALT 20 U/L (4-49); AST 26 U/L (17-59); African American GFR (CKD) 46 (>60 ml/min/1.73 sqM); Albumin 3.6 g/dL (3.5-5.0); Alkaline Phosphatase 62 U/L (38-126); Anion Gap 8 mmol/L; Blood Urea Nitrogen 31 mg/dL (9-20); Calcium 9.1 mg/dL (8.4-10.2); Carbon Dioxide 24 mmol/L (22-30); Chloride 105 mmol/L (98-107); Glucose 95 mg/dL (74-99); Magnesium 1.8 mg/dL (1.6-2.3); Non-African American GFR(CKD) 39 (>60 ml/min/1.73 sqM); Phosphorus 3.7 mg/dL (2.5-4.5); Sodium 137 mmol/L (137-145); Total Bilirubin 1.4 mg/dL (0.2-1.3); Total Protein 6.3 g/dL (6.3-8.2)
[2024-05-16] MEDS: ASPIRIN 81 MG PO SCH (08:23)
[2024-05-16] MEDS: LOSARTAN 25 MG TAB PO SCH (08:24)
[2024-05-16] MEDS: AMIODARONE 200 MG TAB PO SCH (08:24)
[2024-05-16] MEDS: METOPROLOL SUCCINATE (ER) 25 MG TAB.ER.24H PO SCH (08:24)
[2024-05-16] MEDS: ISOSORBIDE MONONITRATE ER 30 MG TAB.ER.24H PO SCH (08:24)
[2024-05-16] MEDS: ATORVASTATIN 80 MG TAB PO SCH (08:24)
[2024-05-16] MEDS: ENOXAPARIN 40 MG/0.4 ML SYRINGE SQ SCH (08:24)
[2024-05-16] MEDS: DAPAGLIFLOZIN PROPANEDIOL 10 MG TABLET PO SCH (08:24)
[2024-05-16] MEDS ORDERED: AZITHROMYCIN 500 MG TAB PO SCH (09:00)
[2024-05-16] MEDS ORDERED: CLOPIDOGREL 75 MG TAB PO SCH (09:00)
[2024-05-16] MEDS ORDERED: ENOXAPARIN 30 MG/0.3 ML SYRINGE SQ SCH (09:00)
[2024-05-16] MEDS: AZITHROMYCIN 500 MG in SODIUM CHLORIDE 0.9% 250 ML IVPB SCH (10:11)
--- NOTE | 2024-05-16 13:55 | P.CRDCN ---
History of Present Illness Consult date: 05/16/24 History of present illness: HISTORY OF PRESENTING ILLNESS 89-year-old with PMH of ischemic cardiomyopathy, severe three-vessel CAD, CVA, TIA, dyslipidemia hypertension. Patient recently hospitalized for acute HFrEF exacerbation and was discharged home last week. This time he comes to the hospital because of increased worsening shortness of breath and increased lower extremity edema. He denies any substernal chest pressure. Does endorse symptoms of paroxysmal nocturnal dyspnea ECG shows sinus rhythm with incomplete left bundle branch block suggestive of dilated LV cavity He has mild elevation of troponin with a flat pattern of 0.12. This is lower than the previous admission and is most likely because of poor renal clearance and setting of ischemic cardiomyopathy with congestive heart failure exacerbation. REVIEW OF SYSTEMS 14 point review of system is negative except what is mentioned above in HPI. PHYSICAL EXAMINATION Vital signs reviewed. Head: Normocephalic. Eyes: Sclerae nonicteric. Neck: Brisk carotid upstroke, elevated JVD distention. Lungs: Crackles audible in bilateral bases Heart: Regular rate and rhythm, S1-S2, systolic murmur, S3 audible Abdomen: Soft nontender, positive bowel sounds. Extremities: 2+ pitting edema bilateral lower extremity. Neuro: Alert, oritented, no focal deficits. Detailed neuro exam was not performed. Imprerssion Acute HFrEF exacerbation due to lower than recommended diuretic use. Elevated troponin, less likely ACS. Most likely because of poor renal clearance and ischemic cardiomyopathy with CHF exacerbation Recent type II NSTEMI Ischemic cardiomyopathy EF of 20 to 25% Severe three-vessel disease previously treated medically subtotal occluded mid LAD, calcified 90% occlusion of LCx, diffuse calcific disease of RCA. Recommended to be treated medically by primary cryptologist. CKD, stable Dyslipidemia Hypertension Debility and frailty PLAN Continue aspirin, Plavix, statin, Farxiga 10 mg daily, losartan 25 g daily, metoprolol XL 25 mg daily Lasix 40 mg IV twice daily. On discharge do not discharge him on anything less than 1 mg Bumex p.o. twice daily for 5 days and then 1 mg p.o. Bumex once daily thereafter. Recommend close outpatient follow-up with Dr. Clark once okay to be discharged. Anticipate he will need 1 to 2 days of IV diuretics prior to discharge. For unclear reason patient is on amiodarone 20 mg daily. I do not see a clear indication for this documented in the medical charts since last hospital admission. I discontinued for now. Reevaluate the need for it on outpatient basis. Telly Ruiz MD, FACC, RPVI Thank you for allowing [facility] to participate in this patient's care. Feel free to reach out in case of any followup questions. Past Medical History Past Medical History: Heart Failure, CVA/TIA, Hyperlipidemia, Hypertension Additional Past Medical History / Comment(s): recent adm. to [facility] for SOB, CHF, SOB w/exertion much improved per pt., some swelling lower extremities, stroke 2018-no residual effects, rheumatic fever @age of 14 History of Any Multi-Drug Resistant Organisms: None Reported Past Surgical History: Back Surgery, Joint Replacement Additional Past Surgical History / Comment(s): thu knee replacements, masoud in neck from surg., right ear surg.years ago for ruptured eardrum Past Anesthesia/Blood Transfusion Reactions: No Reported Reaction Past Psychological History: No Psychological Hx Reported Smoking Status: Former smoker Past Alcohol Use History: None Reported Past Drug Use History: None Reported - Past Family History Mother Family Medical History: Hyperlipidemia Medications and Allergies Home Medications Medication Instructions Recorded Confirmed Type Febuxostat [Uloric] 40 mg PO DAILY 01/15/24 05/15/24 History Aspirin 81 mg PO DAILY #30 tab 01/18/24 05/15/24 Rx Dapagliflozin Propanediol [Farxiga] 10 mg PO DAILY #30 tab 01/18/24 05/15/24 Rx Ascorbic Acid [Vitamin C] 500 mg PO DAILY 05/06/24 05/15/24 History Cholecalciferol [Vitamin D3 (25 25 mcg PO DAILY 05/06/24 05/15/24 History Mcg = 1000 Iu)] Amiodarone [Cordarone] 200 mg PO DAILY #60 tab 05/08/24 05/15/24 Rx Atorvastatin [Lipitor] 80 mg PO DAILY #60 tab 05/08/24 05/15/24 Rx Furosemide [Lasix] 20 mg PO BID #60 tab 05/08/24 05/15/24 Rx Isosorbide Mononitrate ER [Imdur] 30 mg PO DAILY #60 tab 05/08/24 05/15/24 Rx Losartan [Cozaar] 25 mg PO DAILY #60 tab 05/08/24 05/15/24 Rx Metoprolol Succinate (ER) [Toprol 25 mg PO DAILY #60 tab 05/08/24 05/15/24 Rx XL] Allergies Allergy/AdvReac Type Severity Reaction Status Date / Time No Known Allergies Allergy Verified 05/15/24 18:23 Physical Exam Vitals: Vital Signs Temp Pulse Resp BP Pulse Ox 05/16/24 12:38 55 L 18 104/52 96 05/16/24 08:19 94 L 05/16/24 07:50 76 18 121/66 94 L 05/16/24 06:00 68 18 119/67 95 05/16/24 04:00 62 18 113/63 96 05/16/24 00:00 64 16 118/69 96 05/15/24 23:00 56 L 18 108/60 95 05/15/24 22:00 56 L 18 109/65 96 05/15/24 21:00 62 16 108/60 96 05/15/24 20:00 61 18 125/65 95 05/15/24 18:24 63 18 117/64 98 05/15/24 17:07 62 05/15/24 16:54 60 05/15/24 15:55 18 05/15/24 15:52 97.4 F L 58 L 18 110/69 98 Intake and Output 05/15/24 05/16/24 05/16/24 22:59 06:59 14:59 Output Total 675 1300 Balance -675 -1300 Output: Urine 675 1300 Uretheral (Delgado) 675 1300 Other: Weight 88.904 kg Results 05/16/24 06:32 05/16/24 06:32 Cardiac Enzymes 05/15/24 05/15/24 05/15/24 Range/Units 16:20 16:20 18:18 AST 43 (17-59) U/L Troponin I 0.120 H* 0.121 H* (0.000-0.034) ng/mL 05/15/24 05/16/24 Range/Units 21:23 06:32 AST 26 (17-59) U/L Troponin I 0.112 H* (0.000-0.034) ng/mL Coagulation 05/15/24 Range/Units 16:20 PT 11.0 (10.0-12.5) sec APTT 22.0 (22.0-30.0) sec CBC 10/18/24 10/19/24 Range/Units 16:20 06:32 WBC 7.0 7.3 (3.8-10.6) k/uL RBC 3.95 L 3.98 L (4.30-5.90) m/uL Hgb 12.5 L 12.3 L (13.0-17.5) gm/dL Hct 38.2 L 38.3 L (39.0-53.0) % Plt Count 214 239 (150-450) k/uL Comprehensive Metabolic Panel 05/15/24 05/16/24 Range/Units 16:20 06:32 Sodium 136 L 137 (137-145) mmol/L Potassium 5.2 H 4.0 (3.5-5.1) mmol/L Chloride 102 105 (98-107) mmol/L Carbon Dioxide 23 24 (22-30) mmol/L BUN 36 H 31 H (9-20) mg/dL Creatinine 1.55 H 1.56 H (0.66-1.25) mg/dL Glucose 104 H 95 (74-99) mg/dL Calcium 8.7 9.1 (8.4-10.2) mg/dL AST 43 26 (17-59) U/L ALT 21 20 (4-49) U/L Alkaline Phosphatase 36 L 62 (38-126) U/L Total Protein 6.6 6.3 (6.3-8.2) g/dL Albumin 3.7 3.6 (3.5-5.0) g/dL Current Medications Generic Name Dose Route Start Last Admin Trade Name Freq PRN Reason Stop Dose Admin Albuterol/Ipratropium 3 ml 05/15/24 17:43 Ipratropium-Albuterol 3 Ml Neb INHALATION RT-Q4H PRN shortness of breath Aspirin 81 mg 05/16/24 09:00 05/16/24 08:23 Aspirin 81 Mg PO 81 mg DAILY NONA Administration Atorvastatin Calcium 80 mg 05/16/24 09:00 05/16/24 08:24 Atorvastatin 80 Mg Tab PO 80 mg DAILY NONA Administration Clopidogrel Bisulfate 75 mg 05/15/24 21:30 05/16/24 08:24 Clopidogrel 75 Mg Tab PO 75 mg DAILY NONA Administration Dapagliflozin 10 mg 05/16/24 09:00 05/16/24 08:24 Dapagliflozin Propanediol 10 Mg Tablet PO 10 mg DAILY NONA Administration Enoxaparin Sodium 40 mg 05/16/24 09:00 05/16/24 08:24 Enoxaparin 40 Mg/0.4 Ml Syringe SQ 40 mg DAILY NONA Administration Furosemide 40 mg 05/15/24 21:00 05/16/24 08:25 Furosemide 10 Mg/Ml 4 Ml Vial IV 40 mg Q12HR NONA Administration Sodium Chloride 1,000 mls @ 20 mls/hr 05/15/24 17:45 05/15/24 18:20 Saline 0.9% IV 20 mls/hr .Q24H NONA Administration Azithromycin 500 mg/ Sodium 250 mls @ 250 mls/hr 05/16/24 09:00 05/16/24 10:11 Chloride IVPB 05/18/24 09:59 250 mls/hr DAILY NONA Administration Ceftriaxone Sodium 2 gm/ 50 mls @ 100 mls/hr 05/16/24 09:00 05/16/24 09:12 Sodium Chloride IVPB 100 mls/hr Q24HR NONA Administration Isosorbide Mononitrate 30 mg 05/16/24 09:00 05/16/24 08:24 Isosorbide Mononitrate Er 30 Mg Tab.Er.24h PO 30 mg DAILY NONA Administration Losartan Potassium 25 mg 05/16/24 09:00 05/16/24 08:24 Losartan 25 Mg Tab PO 25 mg DAILY NONA Administration Metoprolol Succinate 25 mg 05/16/24 09:00 05/16/24 08:24 Metoprolol Succinate (Er) 25 Mg Tab.Er.24h PO 25 mg DAILY NONA Administration Miscellaneous Information 1 each 05/15/24 17:43 Pneumonia Protocol Utilized 1 Each Misc PO ONCE PRN Per Protocol Morphine Sulfate 4 mg 05/15/24 17:43 Morphine Sulfate 4 Mg/Ml Syringe IV Q4HR PRN Severe Pain (Scale 7 to 10) Naloxone HCl 0.2 mg 05/15/24 17:43 Naloxone 0.4 Mg/Ml 1 Ml Vial IV Q2M PRN Opioid Reversal Ondansetron HCl 4 mg 05/15/24 17:43 Ondansetron 4 Mg/2 Ml Vial IVP Q8HR PRN Nausea And Vomiting Intake and Output 05/15/24 05/16/24 05/16/24 22:59 06:59 14:59 Output Total 675 1300 Balance -675 -1300 Output: Urine 675 1300 Uretheral (Delgado) 675 1300 Other: Weight 88.904 kg 05/16/24 06:32 05/16/24 06:32
--- NOTE | 2024-05-16 14:06 | P.PN ---
Subjective Progress Note Date: 05/16/24 Hospital course: Patient is a very pleasant 89-year-old male with a past medical history of CAD, chronic systolic heart failure with recently known EF of 20%,, hypertension, hyperlipidemia, CVA with no residual effect, stage IIIb CKD. Presented to the hospital on 05/15/2024 with a chief complaint of shortness of breath and bilateral lower extremity edema. Upon arrival to our facility, patient underwent evaluation in the emergency department. Vital signs upon arrival show blood pressure 110/69, heart rate 58, respiratory rate 18, temp 97.4 F, and SpO2 of 98% on room air. EKG was completed showing normal sinus rhythm at 60 bpm with a left bundle branch block and T wave inversion in inferior lateral leads I, 2, 3, aVL, aVF, and V5 and V6 upon personal review and interpretation. Chest x-ray completed showing a small developing infiltrate along the right diaphragm concerning for atelectasis versus pneumonia. Labs completed and reviewed. CBC showing normocytic anemia with hemoglobin of 12.5. Coagulation profile normal findings. BMP showing hyperkalemia with potassium of 5.2 but reported to be a moderately hemolyzed specimen and renal function consistent with previously known stage IIIb CKD with BUN of 36, creatinine of 1.55, GFR 40 with baseline creatinine around 1.5. Blood glucose was 104. 1.9. Liver profile showing elevated total bili of 1.4 and a low alkaline phosphatase of 36. Troponin was elevated at 0.120 and proBNP was 26,300. (Recent troponin drawn 05/06/2024 elevated at 0.667). Patient was provided with IV antibiotics Rocephin and azithromycin, started on IV Lasix and he was admitted under our services with consultation to cardiology. Troponins trended overnight and downtrending at 0.120, 0.121, and 0.112. Physical exam: Patient was seen and fully evaluated at bedside this morning. He reports overall feeling somewhat better but not back to baseline. He reports his sh ortness of breath has improved since arrival to our facility. He remains on IV diuresis and reports having " nothing but urinary output". Patient and patient's at bedside deny having any further questions, complaints, or needs at this time. Vital signs reviewed and stable. General: Nontoxic, no distress and appears stated age. Derm: Skin warm and dry, normal coloration for ethnicity. Head: Atraumatic, normocephalic and symmetric. Eyes: EOM's intact, no lid lag, and anicteric sclera Mouth: no lip lesions, mucus membranes moist Cardiovascular: regular rate and rhythm with normal S1S2, systolic murmur, positive posterior tibial pulses bilaterally, and cap refill < 2 seconds. Lungs: Respirations even, regular, and unlabored on room air. Lungs CTA bilaterally, no rhonchi, no rales, no wheezing, and no accessory muscle usage. Abdominal: soft, nontender to palpation, no guarding, no appreciable organomegaly Ext: ROM intact. No gross muscle atrophy, no edema, no contractures Neuro: Speech clear, face symmetrical and CN II-XII grossly intact with no noted focal neuro deficits Psych: Alert and oriented to person, place, time, and situation. Appropriate and pleasant affect. Assessment and Plan of Care: Acute on chronic systolic heart failure exacerbation Elevated troponins, downtrending from recent NSTEMI Right lower lobe increasing opacification concerning for pneumonia Ischemic cardiomyopathy with EF of 20 to 25% CAD Hypertension Hyperlipidemia History of CVA Stage IIIb chronic kidney disease -Cardiology consulted, in agreement with current plan of care and discontinued amiodarone at this time. Self Propelled Hot Mix Roller Operator recommending once patient is stable for discharge he should be discharged on Bumex 1 mg twice daily for 5 days then reduce to 1 mg daily thereafter. -Telemetry monitoring -Troponins trended overnight and downtrending at 0.120, 0.121, and 0.112 -ProBNP was 26,300 -Daily weights -Close monitoring of I's and O's -Patient empirically treated for concerns of pneumonia with increasing opacity in right lower lobe, continue azithromycin 500 mg daily and Rocephin 2 g daily. (Day 2 of antibiotics) -Lasix 40 mg IVP every 12 hours -Continue cardiac medication regimen with aspirin 81 mg daily, atorvastatin 80 mg daily, Plavix 75 mg daily, Farxiga 10 mg daily, isosorbide mononitrate 30 mg daily, losartan 25 mg daily, and metoprolol 25 mg daily. -Continued close monitoring of renal function and electrolytes while diuresing. Data and imaging reviewed: -Repeat morning chest x-ray revealing cardiomegaly with mild pulmonary vascular congestion and increasing opacification in the right lung base. -Morning labs reviewed. CBC showing stable normocytic anemia with hemoglobin of 12.3. BMP showing stable stage IIIb CKD with BUN of 31, creatinine 1.56, GFR 39. Magnesium 1.8. Liver profile showing continued elevated but stable total bili 1.4. Troponins trended overnight and downtrending at 0.120, 0.121, and 0.112. -Vital signs reviewed. Blood pressure 121/66, heart rate 76, respiratory rate 18, and SpO2 of 94% on room air. CODE STATUS: Full code DVT prophylaxis: Lovenox Anticipated discharge date: Pending clinical course Anticipated discharge place: Home Patient was seen independently by Nurse Pracitioner. This document was prepared using [employer] dictation software. Please allow for errors in sas administrator, while rare they do occur. I reviewed the documentation as provided by the ALVARO above, who is the original author of this note. I agree with the documented assessment and plan, with the following changes: none Objective - Vital Signs Vital signs: Vital Signs Temp 97.4 F L 05/15/24 15:52 Pulse 76 05/16/24 07:50 Resp 18 05/16/24 07:50 BP 121/66 05/16/24 07:50 Pulse Ox 94 L 05/16/24 08:19 FiO2 Intake & Output 05/15/24 05/16/24 05/16/24 18:59 06:59 18:59 Output Total 675 Balance -675 Weight 88.904 kg Output: Urine 675 Uretheral (Delgado) 675 - Labs CBC & Chem 7: 05/16/24 06:32 05/16/24 06:32 Labs: Abnormal Lab Results - Last 24 Hours (Table) 05/15/24 05/15/24 05/15/24 Range/Units 16:20 16:20 16:20 RBC 3.95 L (4.30-5.90) m/uL Hgb 12.5 L (13.0-17.5) gm/dL Hct 38.2 L (39.0-53.0) % Lymphocytes # (1.0-4.8) k/uL Sodium 136 L (137-145) mmol/L Potassium 5.2 H (3.5-5.1) mmol/L BUN 36 H (9-20) mg/dL Creatinine 1.55 H (0.66-1.25) mg/dL Glucose 104 H (74-99) mg/dL Total Bilirubin 1.4 H (0.2-1.3) mg/dL Alkaline Phosphatase 36 L (38-126) U/L Troponin I 0.120 H* (0.000-0.034) ng/mL 05/15/24 05/15/24 05/16/24 Range/Units 18:18 21:23 06:32 RBC 3.98 L (4.30-5.90) m/uL Hgb 12.3 L (13.0-17.5) gm/dL Hct 38.3 L (39.0-53.0) % Lymphocytes # 0.9 L (1.0-4.8) k/uL Sodium (137-145) mmol/L Potassium (3.5-5.1) mmol/L BUN (9-20) mg/dL Creatinine (0.66-1.25) mg/dL Glucose (74-99) mg/dL Total Bilirubin (0.2-1.3) mg/dL Alkaline Phosphatase (38-126) U/L Troponin I 0.121 H* 0.112 H* (0.000-0.034) ng/mL 05/16/24 Range/Units 06:32 RBC (4.30-5.90) m/uL Hgb (13.0-17.5) gm/dL Hct (39.0-53.0) % Lymphocytes # (1.0-4.8) k/uL Sodium (137-145) mmol/L Potassium (3.5-5.1) mmol/L BUN 31 H (9-20) mg/dL Creatinine 1.56 H (0.66-1.25) mg/dL Glucose (74-99) mg/dL Total Bilirubin 1.4 H (0.2-1.3) mg/dL Alkaline Phosphatase (38-126) U/L Troponin I (0.000-0.034) ng/mL
[2024-05-16] MEDS ORDERED: HYDROcodone/APAP 5-325MG 1 EACH TAB PO PRN (15:27)
[2024-05-16] MEDS ORDERED: ACETAMINOPHEN TAB 325 MG TAB PO PRN (15:27)
[2024-05-17 08:13] LABS: African American GFR (CKD) 43 (>60 ml/min/1.73 sqM); Anion Gap 10 mmol/L; Blood Urea Nitrogen 31 mg/dL (9-20); Calcium 9.1 mg/dL (8.4-10.2); Carbon Dioxide 23 mmol/L (22-30); Chloride 103 mmol/L (98-107); Glucose 95 mg/dL (74-99); Magnesium 1.8 mg/dL (1.6-2.3); Non-African American GFR(CKD) 38 (>60 ml/min/1.73 sqM); Potassium 4.2 mmol/L (3.5-5.1); Sodium 136 mmol/L (137-145)
--- NOTE | 2024-05-17 12:37 | P.PN ---
Subjective Progress Note Date: 05/17/24 HISTORY OF PRESENTING ILLNESS 89-year-old with PMH of ischemic cardiomyopathy, severe three-vessel CAD, CVA, TIA, dyslipidemia hypertension. Patient recently hospitalized for acute HFrEF exacerbation and was discharged home last week. This time he comes to the hospital because of increased worsening shortness of breath and increased lower extremity edema. He denies any substernal chest pressure. Does endorse symptoms of paroxysmal nocturnal dyspnea ECG shows sinus rhythm with incomplete left bundle branch block suggestive of dilated LV cavity He has mild elevation of troponin with a flat pattern of 0.12. This is lower than the previous admission and is most likely because of poor renal clearance and setting of ischemic cardiomyopathy with congestive heart failure exacerbation. REVIEW OF SYSTEMS 14 point review of system is negative except what is mentioned above in HPI. Progress note 05/17/2024 Seen and examined at bedside this a.m. hemoglobin 12.3, BUN 31, creatinine 1.56. Stable. Pro-Gaetano was negative, NT-proBNP 94024, patient 1.8 Head: Normocephalic. Eyes: Sclerae nonicteric. Neck: Brisk carotid upstroke, elevated JVD distention. Lungs: Crackles audible in bilateral bases Heart: Regular rate and rhythm, S1-S2, systolic murmur, S3 audible Abdomen: Soft nontender, positive bowel sounds. Extremities: 2+ pitting edema bilateral lower extremity. Neuro: Alert, oritented, no focal deficits. Detailed neuro exam was not performed. Imprerssion Acute HFrEF exacerbation due to lower than recommended diuretic use. Elevated troponin, less likely ACS. Most likely because of poor renal clearance and ischemic cardiomyopathy with CHF exacerbation Recent type II NSTEMI Ischemic cardiomyopathy EF of 20 to 25% Severe three-vessel disease previously treated medically subtotal occluded mid LAD, calcified 90% occlusion of LCx, diffuse calcific disease of RCA. Recommended to be treated medically by primary gill net stringer. CKD, stable Dyslipidemia Hypertension Debility and frailty PLAN Continue aspirin, Plavix, statin, Farxiga 10 mg daily, losartan 25 mg daily, metoprolol XL 25 mg daily Lasix 40 mg IV twice daily. Monitor transition to Bumex 1 mg p.o. twice daily. Not doing MRA due to Low GFR On discharge do not discharge him on anything less than 1 mg Bumex p.o. twice daily for 5 days and then 1 mg p.o. Bumex once daily thereafter. Recommend close outpatient follow-up with Dr. Clark once okay to be discharged. Anticipate he will need 1 to 2 days of IV diuretics prior to discharge. For unclear reason patient is on amiodarone 200 mg daily. I do not see a clear indication for this documented in the medical charts since last hospital admission. I discontinued for now. Reevaluate the need for it on outpatient basis. Objective - Vital Signs Vital signs: Vital Signs Temp 97.6 F 05/17/24 08:00 Pulse 65 05/17/24 11:30 Resp 16 05/17/24 11:30 BP 94/53 05/17/24 11:30 Pulse Ox 94 L 05/17/24 11:30 FiO2 Intake & Output 05/16/24 05/17/24 05/17/24 18:59 06:59 18:59 Intake Total 356 Output Total 2275 1250 Balance -2275 -1250 356 Weight 87.2 kg Intake: Oral 356 Output: Urine 2275 1250 Uretheral (Delgado) 2275 950 Other: Voiding Method Indwelling Catheter - Labs CBC & Chem 7: 05/16/24 06:32 05/17/24 07:29 Labs: Abnormal Lab Results - Last 24 Hours (Table) 05/17/24 Range/Units 07:29 Sodium 136 L (137-145) mmol/L BUN 31 H (9-20) mg/dL Creatinine 1.62 H (0.66-1.25) mg/dL Microbiology - Last 24 Hours (Table) 05/16/24 10:28 Gram Stain - Preliminary Sputum 05/15/24 18:31 Blood Culture - Preliminary Blood
--- NOTE | 2024-05-17 14:19 | P.PN ---
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 Presented to the hospital on 05/15/2024 with a chief complaint of shortness of breath and bilateral lower extremity edema. Upon arrival to our facility, patient underwent evaluation in the emergency department. Vital signs upon arrival show blood pressure 110/69, heart rate 58, respiratory rate 18, temp 97.4 F, and SpO2 of 98% on room air. EKG was completed showing normal sinus rhythm at 60 bpm with a left bundle branch block and T wave inversion in inferior lateral leads I, 2, 3, aVL, aVF, and V5 and V6 upon personal review and interpretation. Chest x-ray completed showing a small developing infiltrate along the right diaphragm concerning for atelectasis versus pneumonia. Labs completed and reviewed. CBC showing normocytic anemia with hemoglobin of 12.5. Coagulation profile normal findings. BMP showing hyperkalemia with potassium of 5.2 but reported to be a moderately hemolyzed specimen and renal function consistent with previously known stage IIIb CKD with BUN of 36, creatinine of 1.55, GFR 40 with baseline creatinine around 1.5. Blood glucose was 104. 1.9. Liver profile showing elevated total bili of 1.4 and a low alkaline phosphatase of 36. Troponin was elevated at 0.120 and proBNP was 26,300. (Recent troponin drawn 05/06/2024 elevated at 0.667). Patient was provided with IV antibiotics Rocephin and azithromycin, started on IV Lasix and he was admitted under our services with consultation to cardiology. Troponins trended overnight and downtrending at 0.120, 0.121, and 0.112. Physical exam: Patient was seen and fully evaluated at bedside this morning. He continues to have mild shortness of breath and fatigue and bilateral lower extremity edema. Lower extremity edema somewhat improving. Vital signs reviewed and stable. General: Nontoxic, no distress and appears stated age. Derm: Skin warm and dry, normal coloration for ethnicity. Head: Atraumatic, normocephalic and symmetric. Eyes: EOM's intact, no lid lag, and anicteric sclera Mouth: no lip lesions, mucus membranes moist Cardiovascular: regular rate and rhythm with normal S1S2, systolic murmur, positive posterior tibial pulses bilaterally, and cap refill < 2 seconds. Lungs: Respirations even, regular, and unlabored on room air. Lungs diminished, no rhonchi, no rales, no wheezing, and no accessory muscle usage. Abdominal: soft, nontender to palpation, no guarding, no appreciable organomegaly Ext: ROM intact. No gross muscle atrophy, bilateral lower extremity edema worse on the left patient states always worse on left due to previous injury), no contractures Neuro: Speech clear, face symmetrical and CN II-XII grossly intact with no noted focal neuro deficits Psych: Alert and oriented to person, place, time, and situation. Appropriate and pleasant affect. Assessment and Plan of Care: Acute on chronic systolic heart failure exacerbation Elevated troponins, downtrending from recent NSTEMI Right lower lobe increasing opacification concerning for pneumonia Ischemic cardiomyopathy with EF of 20 to 25% CAD Hypertension Hyperlipidemia History of CVA Stage IIIb chronic kidney disease -Cardiology consulted, in agreement with current plan of care and discontinued amiodarone at this time. Discussed case with Dr. Ruiz, pump machine operator when he is recommending patient will need 1 to 2 days of further IV diuretics prior to discharge and once patient is stable for discharge he should be discharged on Bumex 1 mg twice daily for 5 days then reduce to 1 mg daily thereafter. -Telemetry monitoring -Troponins downtrended at 0.120, 0.121, and 0.112 -ProBNP was 26,300 -Daily weights -Close monitoring of I's and O's -Patient empirically treated for concerns of pneumonia with increasing opacity in right lower lobe, continue azithromycin 500 mg daily and Rocephin 2 g daily. (Day 3 of antibiotics) -Lasix 40 mg IVP every 12 hours -Continue cardiac medication regimen with aspirin 81 mg daily, atorvastatin 80 mg daily, Plavix 75 mg daily, Farxiga 10 mg daily, isosorbide mononitrate 30 mg daily, losartan 25 mg daily, and metoprolol 25 mg daily. -Continued close monitoring of renal function and electrolytes while diuresing. -Blood cultures showing no growth to date, sputum culture pending. Data and imaging reviewed: -Morning labs reviewed. CBC showing stable normocytic anemia with hemoglobin of 12.3. BMP showing stable stage IIIb CKD with BUN of 31, creatinine 1.62, GFR of 38. Magnesium 1.8. -Vital signs reviewed. Blood pressure 110/63, heart rate 69, respiratory rate 18, temp 97.6 F, and SpO2 of 97% on room air. CODE STATUS: Full code DVT prophylaxis: Lovenox Anticipated discharge date: Pending clinical course Anticipated discharge place: Home Patient was seen independently by Nurse Pracitioner. This document was prepared using [employer] dictation software. Please allow for errors in staking engineer, while rare they do occur. I reviewed the documentation as provided by the ALVARO above, who is the original author of this note. I agree with the documented assessment and plan, with the following changes: none Objective - Vital Signs Vital signs: Vital Signs Temp 97.6 F 05/17/24 08:00 Pulse 69 05/17/24 08:00 Resp 18 05/17/24 08:00 BP 110/63 05/17/24 08:00 Pulse Ox 97 05/17/24 08:00 FiO2 Intake & Output 05/16/24 05/17/24 05/17/24 18:59 06:59 18:59 Intake Total 356 Output Total 2275 1250 Balance -2275 -1250 356 Weight 87.2 kg Intake: Oral 356 Output: Urine 2275 1250 Uretheral (Delgado) 2275 950 Other: Voiding Method Indwelling Catheter - Labs CBC & Chem 7: 05/16/24 06:32 05/17/24 07:29 Labs: Abnormal Lab Results - Last 24 Hours (Table) 05/17/24 Range/Units 07:29 Sodium 136 L (137-145) mmol/L BUN 31 H (9-20) mg/dL Creatinine 1.62 H (0.66-1.25) mg/dL Microbiology - Last 24 Hours (Table) 05/15/24 18:31 Blood Culture - Preliminary Blood
[2024-05-18 07:24] LABS: HCT 36.5 % (39.0-53.0); HGB 12.1 gm/dL (13.0-17.5); MCH 31.7 pg (25.0-35.0); MCHC 33.2 g/dL (31.0-37.0); MCV 95.5 fL (80.0-100.0); Mean Platelet Volume 8.5; Platelet Count 215 k/uL (150-450); RBC 3.83 m/uL (4.30-5.90); RDW 14.8 % (11.5-15.5); WBC 7.7 k/uL (3.8-10.6)
[2024-05-18 07:34] LABS: ALT 19 U/L (4-49); AST 24 U/L (17-59); African American GFR (CKD) 42 (>60 ml/min/1.73 sqM); Albumin 3.5 g/dL (3.5-5.0); Alkaline Phosphatase 59 U/L (38-126); Anion Gap 11 mmol/L; Blood Urea Nitrogen 30 mg/dL (9-20); Calcium 8.9 mg/dL (8.4-10.2); Carbon Dioxide 21 mmol/L (22-30); Chloride 104 mmol/L (98-107); Glucose 101 mg/dL (74-99); Magnesium 1.9 mg/dL (1.6-2.3); Non-African American GFR(CKD) 37 (>60 ml/min/1.73 sqM); Potassium 3.8 mmol/L (3.5-5.1); Sodium 136 mmol/L (137-145); Total Bilirubin 1.2 mg/dL (0.2-1.3); Total Protein 6.2 g/dL (6.3-8.2)
--- NOTE | 2024-05-18 07:42 | XR ---
EXAMINATION TYPE: XR chest 1V portable DATE OF EXAM: 05/18/2024 Comparison: 05/16/2024 Clinical History: 89-year-old male follow up on RLL increasing opacity Findings: Heart mildly enlarged. Hyperinflation. Interstitial and vascular density persists. Focal right basila r opacity persists. Mild patchy left basilar opacity similar. Chronic full-thickness rotator cuff tea rs. Impression: 1. Correlate for COPD with similar superimposed CHF and pulmonary vascular congestion. 2. Ongoing right basilar opacity likely combination of a small right pleural effusion with prominent adjacent atelectasis and/or consolidation. [facility], , 05/18/2024 7:40 AM
--- NOTE | 2024-05-18 12:09 | P.PN ---
Subjective Progress Note Date: 05/18/24 HISTORY OF PRESENTING ILLNESS 89-year-old with PMH of ischemic cardiomyopathy, severe three-vessel CAD, CVA, TIA, dyslipidemia hypertension. Patient recently hospitalized for acute HFrEF exacerbation and was discharged home last week. This time he comes to the hospital because of increased worsening shortness of breath and increased lower extremity edema. He denies any substernal chest pressure. Does endorse symptoms of paroxysmal nocturnal dyspnea ECG shows sinus rhythm with incomplete left bundle branch block suggestive of dilated LV cavity He has mild elevation of troponin with a flat pattern of 0.12. This is lower than the previous admission and is most likely because of poor renal clearance and setting of ischemic cardiomyopathy with congestive heart failure exacerbation. REVIEW OF SYSTEMS 14 point review of system is negative except what is mentioned above in HPI. Progress note 05/17/2024 Seen and examined at bedside this a.m. hemoglobin 12.3, BUN 31, creatinine 1.56. Stable. Pro-Gaetano was negative, NT-proBNP 57718, patient 1.8 05/18 Patient is seen and examined. He denies chest pain or shortness of breath. Blood pressure 101/54, heart rate 63, pulse ox 95% on room air. Patient has a negative fluid balance. Repeat blood work reveals sodium 136, potassium 3.8, BUN 30 creatinine 1.66. Chest x-ray reveals correlate for COPD with similar superimposed CHF and pulmonary vascular congestion. Ongoing right basilar opacity likely combination of small right pleural effusion with prominent adjacent atelectasis and/or consolidation. Physical examination: Head: Normocephalic. Eyes: Sclerae nonicteric. Neck: Brisk carotid upstroke, elevated JVD distention. Lungs: Diminished breath sounds Heart: Regular rate and rhythm, S1-S2, systolic murmur, S3 audible Abdomen: Soft nontender, positive bowel sounds. Extremities: 1+ bilateral pitting edema lower extremity. Neuro: Alert, oritented, no focal deficits. Detailed neuro exam was not performed. Imprerssion Acute HFrEF exacerbation due to lower than recommended diuretic use. Elevated troponin, less likely ACS. Most likely because of poor renal clearance and ischemic cardiomyopathy with CHF exacerbation Recent type II NSTEMI Ischemic cardiomyopathy EF of 20 to 25% Severe three-vessel disease previously treated medically subtotal occluded mid LAD, calcified 90% occlusion of LCx, diffuse calcific disease of RCA. Recommended to be treated medically by primary heritage consultant. CKD, stable Dyslipidemia Hypertension Debility and frailty PLAN Continue aspirin, Plavix, statin, Farxiga 10 mg daily, losartan 25 mg daily, metoprolol XL 25 mg daily Resume patient on amiodarone 200 mg daily to be continued at discharge Discontinue IV Lasix and transition to oral Lasix 40 mg twice daily. Patient to be on Lasix 40 mg twice daily at discharge Patient is cleared for discharge from cardiology May follow-up with Dr. Clark in 1 week. Nurse practitioner note has been reviewed, I agree with documented findings and plan of care. Patient was seen and examined. Objective - Vital Signs Vital signs: Vital Signs Temp 97.8 F 05/18/24 08:00 Pulse 63 05/18/24 08:00 Resp 18 05/18/24 08:00 BP 101/54 05/18/24 08:00 Pulse Ox 95 05/18/24 08:00 FiO2 Intake & Output 05/17/24 05/18/24 05/18/24 18:59 06:59 18:59 Intake Total 596 340 Output Total 1100 Balance 596 -1100 340 Weight 87.9 kg Intake: Oral 596 340 Output: Urine 1100 Other: Voiding Method Indwelling Catheter # Voids 1 - Labs CBC & Chem 7: 05/18/24 06:50 05/18/24 06:50 Labs: Abnormal Lab Results - Last 24 Hours (Table) 05/18/24 05/18/24 Range/Units 06:50 06:50 RBC 3.83 L (4.30-5.90) m/uL Hgb 12.1 L (13.0-17.5) gm/dL Hct 36.5 L (39.0-53.0) % Sodium 136 L (137-145) mmol/L Carbon Dioxide 21 L (22-30) mmol/L BUN 30 H (9-20) mg/dL Creatinine 1.66 H (0.66-1.25) mg/dL Glucose 101 H (74-99) mg/dL Total Protein 6.2 L (6.3-8.2) g/dL Microbiology - Last 24 Hours (Table) 05/15/24 18:31 Blood Culture - Preliminary Blood 05/16/24 10:28 Gram Stain - Preliminary Sputum Sputum Culture - Preliminary
[2024-05-18] MEDS: AMIODARONE 200 MG TAB PO SCH (12:20)
--- NOTE | 2024-05-18 14:12 | P.PN ---
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 Presented to the hospital on 05/15/2024 with a chief complaint of shortness of breath and bilateral lower extremity edema. Upon arrival to our facility, patient underwent evaluation in the emergency department. Vital signs upon arrival show blood pressure 110/69, heart rate 58, respiratory rate 18, temp 97.4 F, and SpO2 of 98% on room air. EKG was completed showing normal sinus rhythm at 60 bpm with a left bundle branch block and T wave inversion in inferior lateral leads I, 2, 3, aVL, aVF, and V5 and V6 upon personal review and interpretation. Chest x-ray completed showing a small developing infiltrate along the right diaphragm concerning for atelectasis versus pneumonia. Labs completed and reviewed. CBC showing normocytic anemia with hemoglobin of 12.5. Coagulation profile normal findings. BMP showing hyperkalemia with potassium of 5.2 but reported to be a moderately hemolyzed specimen and renal function consistent with previously known stage IIIb CKD with BUN of 36, creatinine of 1.55, GFR 40 with baseline creatinine around 1.5. Blood glucose was 104. 1.9. Liver profile showing elevated total bili of 1.4 and a low alkaline phosphatase of 36. Troponin was elevated at 0.120 and proBNP was 26,300. (Recent troponin drawn 05/06/2024 elevated at 0.667). Patient was provided with IV antibiotics Rocephin and azithromycin, started on IV Lasix and he was admitted under our services with consultation to cardiology. Troponins trended overnight and downtrending at 0.120, 0.121, and 0.112. Physical exam: Patient was seen and fully evaluated at bedside this morning. He continues to have mild shortness of breath and fatigue and bilateral lower extremity edema. Lower extremity edema somewhat improving. Vital signs reviewed and stable. General: Nontoxic, no distress and appears stated age. Derm: Skin warm and dry, normal coloration for ethnicity. Head: Atraumatic, normocephalic and symmetric. Eyes: EOM's intact, no lid lag, and anicteric sclera Mouth: no lip lesions, mucus membranes moist Cardiovascular: regular rate and rhythm with normal S1S2, systolic murmur, positive posterior tibial pulses bilaterally, and cap refill < 2 seconds. Lungs: Respirations even, regular, and unlabored on room air. Lungs diminished, no rhonchi, no rales, no wheezing, and no accessory muscle usage. Abdominal: soft, nontender to palpation, no guarding, no appreciable organomegaly Ext: ROM intact. No gross muscle atrophy, bilateral lower extremity edema worse on the left patient states always worse on left due to previous injury), no contractures Neuro: Speech clear, face symmetrical and CN II-XII grossly intact with no noted focal neuro deficits Psych: Alert and oriented to person, place, time, and situation. Appropriate and pleasant affect. Assessment and Plan of Care: Acute on chronic systolic heart failure exacerbation Elevated troponins, downtrending from recent NSTEMI Right lower lobe increasing opacification concerning for pneumonia Ischemic cardiomyopathy with EF of 20 to 25% CAD Hypertension Hyperlipidemia History of CVA Stage IIIb chronic kidney disease -Cardiology consulted, in agreement with current plan of care and discontinued amiodarone at this time. Discussed case with Dr. Ruiz, certified corporate travel executive stating once patient is stable for discharge he should be discharged on Bumex 1 mg twice daily for 5 days then reduce to 1 mg daily thereafter. -Telemetry monitoring -Troponins downtrended at 0.120, 0.121, and 0.112 -ProBNP was 26,300 -Daily weights -Close monitoring of I's and O's -Patient empirically treated for concerns of pneumonia with increasing opacity in right lower lobe, continue azithromycin 500 mg daily and Rocephin 2 g daily. (Day 3 of antibiotics) -Lasix 40 mg IVP every 12 hours -Continue cardiac medication regimen with aspirin 81 mg daily, atorvastatin 80 mg daily, Plavix 75 mg daily, Farxiga 10 mg daily, isosorbide mononitrate 30 mg daily, losartan 25 mg daily, and metoprolol 25 mg daily. -Continued close monitoring of renal function and electrolytes while diuresing. -Blood cultures showing no growth to date, sputum culture pending. Visual hallucinations -Patient reporting seeing children playing in the bathroom, a little girl hiding behind door, and a man standing in the corner by the cabinet. Patient's at bedside also reports that she began noticing this yesterday when he told her about the docs on the roof and the schoolbus that he also saw the window. Myra marquez's states this is not normal behavior for her . -Reviewed medications, visual hallucinations possibly secondary to hospital delirium as patient has no other complaints or deficits noted. -Will consult psychiatry for evaluation and further recommendations. Data and imaging reviewed: -Morning labs reviewed. CBC showing stable normocytic anemia with hemoglobin of 12.1. BMP showing stable stage IIIb CKD with BUN of 30, creatinine 1.66, GFR of 37. Magnesium 1.9. -Vital signs reviewed. Blood pressure 101/54, heart rate 63, respiratory rate 18, temp 97.8 F, and SpO2 of 95% on room air. CODE STATUS: Full code DVT prophylaxis: Lovenox Anticipated discharge date: Pending clinical course Anticipated discharge place: Home Patient was seen independently by Nurse Pracitioner. This document was prepared using [employer] dictation software. Please allow for errors in supervisor carbon electrodes, while rare they do occur. I reviewed the documentation as provided by the ALVARO above, who is the original author of this note. I agree with the documented assessment and plan, with the following changes: none Objective - Vital Signs Vital signs: Vital Signs Temp 97.8 F 05/18/24 08:00 Pulse 63 05/18/24 08:00 Resp 18 05/18/24 08:00 BP 101/54 05/18/24 08:00 Pulse Ox 95 05/18/24 08:00 FiO2 Intake & Output 05/17/24 05/18/24 05/18/24 18:59 06:59 18:59 Intake Total 596 340 Output Total 1100 Balance 596 -1100 340 Weight 87.9 kg Intake: Oral 596 340 Output: Urine 1100 Other: Voiding Method Indwelling Catheter # Voids 1 - Labs CBC & Chem 7: 05/18/24 06:50 05/18/24 06:50 Labs: Abnormal Lab Results - Last 24 Hours (Table) 05/18/24 05/18/24 Range/Units 06:50 06:50 RBC 3.83 L (4.30-5.90) m/uL Hgb 12.1 L (13.0-17.5) gm/dL Hct 36.5 L (39.0-53.0) % Sodium 136 L (137-145) mmol/L Carbon Dioxide 21 L (22-30) mmol/L BUN 30 H (9-20) mg/dL Creatinine 1.66 H (0.66-1.25) mg/dL Glucose 101 H (74-99) mg/dL Total Protein 6.2 L (6.3-8.2) g/dL Microbiology - Last 24 Hours (Table) 05/15/24 18:31 Blood Culture - Preliminary Blood 05/16/24 10:28 Gram Stain - Preliminary Sputum Sputum Culture - Preliminary
--- NOTE | 2024-05-18 15:09 | P.CN ---
Psychiatric Consult - . Consult date: 05/18/24 Consult:: 05/18/24 15:02 IDENTIFYING DATA: This patient is a 89-year-old male with history of CHF REASON FOR REFERRAL: Psychiatry was consulted for visual hallucinations HISTORY OF PRESENT ILLNESS: The patient presented to the hospital with a chief complaint of shortness of breath. Patient was ultimately admitted for CHF exacerbation and elevated troponins. Patient seen and evaluated at bedside and was A&Ox2 to self and location but not time. He denied any past psych history however reports experiencing visual hallucinations described as seeing children for the past 3 weeks. He states that this is not distressing for him as he finds children enjoyable and he is able to realize they are not real. He denies any worsening in his visual hallucinations. At this time patient denies any suicidal or homical ideations, intent or plan. Patient denies any paranoia or delusions. Patients admits to using no substances as he quit tobacco back in 1980. PAST PSYCHIATRIC HISTORY: Patient denies any past psych history. Patient denies being on any psychiatric medications. Patient denies any previous psychiatric hospitalizations. Patient denies any psychiatric outpatient follow-up. Patient denies any history of suicide attempts in the past. PAST MEDICAL HISTORY: Cardiomyopathy, CAD, dyslipidemia, CHF, hypertension. ALLERGIES: as per EMR. CHEMICAL DEPENDENCY HISTORY: as per HPI. FAMILY PSYCHIATRIC/SUBSTANCE USE HISTORY: Denies SOCIAL HISTORY: Patient lives with his of 48 years and has 5 children and 14 grandkids. His highest level of education is eighth grade and he is retired from working at a [employer] company. Denies any legal issues. MENTAL STATUS EXAM: General Appearance: Patient appears to be stated age is alert, pleasant, and cooperative. Patient appears to have fair hygiene and grooming wearing hospital gown with fair eye contact. Behavior: Patient is calmly lying in bed without any agitated behavior. Speech: Patient's speech is fluent and nonpressured. Mood/Affect: Patient reports their mood is "good", affect is congruent Suicidality/Homicidality: Patient denies having any suicidal or homicidal ideation intent or plan. Perceptions: Patient reports visual hallucinations described as seeing children at play however was not responding to internal stimuli during interview Though content/process: There is no evidence of any delusional thought content and thought process is linear and goal-directed. Memory and concentration: AOX2, grossly intact for the purposes of this session. Can spell "WORLD" backwards Judgment and insight: Fair IMPRESSIONS: Delirium, likely related to CHF exacerbation PLAN: -At this time patient DOES NOT meet criteria for inpatient psychiatric admission. -Delirium precautions recommended with patient including - avoiding use of narcotics and PLATEMAN sedatives, limit anticholinergic medications when possible, frequent re-orientation, minimize use of restraints, open window shades during the day and close them at night -Would recommend the following medication changes/additions: Will hold off from initiating psychotropic medications as patient is not in distress with his visual hallucinations and they are likely a component of delirium instead of underlying thought disorder such as schizophrenia -Psychiatry will sign off at this time -Please contact with any questions.
[2024-05-18] MEDS: FUROSEMIDE 40 MG TAB PO SCH (17:14)
[2024-05-19 07:40] VITALS: BP 114/64; PULSE 73; RESP 16; TEMP 98
--- NOTE | 2024-05-19 18:38 | P.DS ---
Providers Date of admission: 05/15/24 17:43 Expected date of discharge: 05/19/24 Attending physician: Shahid Krueger MD Consults: 05/18/24 11:42 Consult Physician Routine Consulting Provider: Sergey Abreu Consult Reason/Comments: visual hallucinatinos Do you want consulting provider notified?: Yes Primary care physician: [facility] Hospital Course: Discharge Diagnosis: Acute on chronic systolic heart failure exacerbation Elevated troponins, downtrending from recent NSTEMI Right lower lobe increasing opacification concerning for pneumonia. Patient received 3-day course of IV antibiotics with azithromycin and Rocephin, procalcitonin was negative. Repeat chest x-ray showing right basilar opacity likely small right pleural effusion accompanied by atelectasis. IV antibiotics discontinued. Cardiology increasing dose of home diuretics. Ischemic cardiomyopathy with EF of 20 to 25% CAD Hypertension Hyperlipidemia History of CVA Stage IIIb chronic kidney disease Visual hallucinations. Believed to be secondary to hospital delirium. Patient was evaluated by psychiatry, stating no need for medication changes at this time and clearing patient from their perspective for discharge. Hospital Course: Patient is a very pleasant 89-year-old male with a past medical history of CAD, chronic systolic heart failure with recently known EF of 20%,, hypertension, hyperlipidemia, CVA with no residual effect, stage IIIb CKD. Presented to the hospital on 05/15/2024 with a chief complaint of shortness of breath and bilateral lower extremity edema. Upon arrival to our facility, patient underwent evaluation in the emergency department. Vital signs upon arrival show blood pressure 110/69, heart rate 58, respiratory rate 18, temp 97.4 F, and SpO2 of 98% on room air. EKG was completed showing normal sinus rhythm at 60 bpm with a left bundle branch block and T wave inversion in inferior lateral leads I, 2, 3, aVL, aVF, and V5 and V6 upon personal review and interpretation. Chest x-ray completed showing a small developing infiltrate along the right diaphragm concerning for atelectasis versus pneumonia. Labs completed and r eviewed. CBC showing normocytic anemia with hemoglobin of 12.5. Coagulation profile normal findings. BMP showing hyperkalemia with potassium of 5.2 but reported to be a moderately hemolyzed specimen and renal function consistent with previously known stage IIIb CKD with BUN of 36, creatinine of 1.55, GFR 40 with baseline creatinine around 1.5. Blood glucose was 104. 1.9. Liver profile showing elevated total bili of 1.4 and a low alkaline phosphatase of 36. Troponin was elevated at 0.120 and proBNP was 26,300. (Recent troponin drawn 05/06/2024 elevated at 0.667). Patient was provided with IV antibiotics Rocephin and azithromycin, started on IV Lasix and he was admitted under our services with consultation to cardiology. Troponins trended overnight and downtrending at 0.120, 0.121, and 0.112. Patient underwent successful IV diuresis, medication changes were made and patient being discharged home on increased dose of home diuretics with Lasix 40 mg twice daily. Patient cleared from cardiology perspective for discharge. He is medically stable for discharge at this time and currently denies having any complaints. Patient reports breathing is back to baseline and reviewed discharge instructions and recommendations with patient and at bedside. All questions answered. Patient to follow-up outpatient with PCP in 1 to 2 days and with framework developer in 1 week. Physical exam: Vital signs reviewed and stable. General: Nontoxic, no distress and appears stated age. Derm: Skin warm and dry, normal coloration for ethnicity. Head: Atraumatic, normocephalic and symmetric. Eyes: EOM's intact, no lid lag, and anicteric sclera Mouth: no lip lesions, mucus membranes moist Cardiovascular: regular rate and rhythm with normal S1S2, systolic murmur, positive posterior tibial pulses bilaterally, and cap refill < 2 seconds. Lungs: Respirations even, regular, and unlabored on room air. Lungs diminished, no rhonchi, no rales, no wheezing, and no accessory muscle usage. Abdominal: soft, nontender to palpation, no guarding, no appreciable organomegaly Ext: ROM intact. No gross muscle atrophy, bilateral lower extremity edema worse on the left patient states always worse on left due to previous injury), no contractures Neuro: Speech clear, face symmetrical and CN II-XII grossly intact with no noted focal neuro deficits Psych: Alert and oriented to person, place, time, and situation. Appropriate and pleasant affect. A total of 38 minutes of time were spent preparing this complex discharge summary. Pt was discharged on 05/19/2024 at 9:50 AM. Patient was seen independently by Nurse Practitioner. This document was prepared using [employer] dictation software. Please allow for errors in amusement park ride mechanic while rare they do occur. I reviewed the documentation as provided by the ALVARO above, who is the original author of this note. I agree with the documented assessment and plan, with the following changes: none Patient Condition at Discharge: Stable Plan - Discharge Summary New Discharge Prescriptions: New Clopidogrel [Plavix] 75 mg PO DAILY 30 Days #30 tab Furosemide [Lasix] 40 mg PO BID@0900,1600 30 Days #60 tab Continue Febuxostat [Uloric] 40 mg PO DAILY Dapagliflozin Propanediol [Farxiga] 10 mg PO DAILY #30 tab Cholecalciferol [Vitamin D3 (25 Mcg = 1000 Iu)] 25 mcg PO DAILY Ascorbic Acid [Vitamin C] 500 mg PO DAILY Atorvastatin [Lipitor] 80 mg PO DAILY #60 tab Aspirin 81 mg PO DAILY #30 tab Amiodarone [Cordarone] 200 mg PO DAILY #60 tab Losartan [Cozaar] 25 mg PO DAILY #60 tab Isosorbide Mononitrate ER [Imdur] 30 mg PO DAILY #60 tab Metoprolol Succinate (ER) [Toprol XL] 25 mg PO DAILY #60 tab Discontinued Furosemide [Lasix] 20 mg PO BID #60 tab Discharge Medication List Febuxostat [Uloric] 40 mg PO DAILY 01/15/24 [History] Aspirin 81 mg PO DAILY #30 tab 01/18/24 [Rx] Dapagliflozin Propanediol [Farxiga] 10 mg PO DAILY #30 tab 01/18/24 [Rx] Ascorbic Acid [Vitamin C] 500 mg PO DAILY 05/06/24 [History] Cholecalciferol [Vitamin D3 (25 Mcg = 1000 Iu)] 25 mcg PO DAILY 05/06/24 [History] Amiodarone [Cordarone] 200 mg PO DAILY #60 tab 05/08/24 [Rx] Atorvastatin [Lipitor] 80 mg PO DAILY #60 tab 05/08/24 [Rx] Isosorbide Mononitrate ER [Imdur] 30 mg PO DAILY #60 tab 05/08/24 [Rx] Losartan [Cozaar] 25 mg PO DAILY #60 tab 05/08/24 [Rx] Metoprolol Succinate (ER) [Toprol XL] 25 mg PO DAILY #60 tab 05/08/24 [Rx] Clopidogrel [Plavix] 75 mg PO DAILY 30 Days #30 tab 05/19/24 [Rx] Furosemide [Lasix] 40 mg PO BID@0900,1600 30 Days #60 tab 05/19/24 [Rx] Follow up Appointment(s)/Referral(s): Matthew Clark MD [STAFF PHYSICIAN] - 1 Week (Office not answering, please call to make your follow up appointment. Thank you!) [facility],Clinic [Primary Care Provider] - 1-2 days Patient Instructions/Handouts: Heart Failure (DC) Activity/Diet/Wound Care/Special Instructions: Activity: As tolerated. Take breaks as needed. Requires supervision secondary to visual hallucinations. Diet: Heart healthy and carb consistent diet. Avoid salts, or foods with hidden salts such as canned or boxed foods and frozen dinners. Extra salt makes your heart work harder and traps the fluid in your body for longer. Special Instructions: Weigh yourself every morning after you urinate. If you gain 3 pounds overnight or more than 5 pounds in one week, call your primary physician and framework developer for guidance on your medications or they may want to see you in their office. Keep a daily log of your weights and be sure to bring with you at follow up visits with your PCP and framework developer. Take all of your medications as directed, especially your water pills. NEVER skip a dose. And remember to keep all of your doctor's appointments and follow- up as needed. Elevate your legs when you are not up moving around to help with circulation and prevent swelling. Compression stockings are also a great way to improve lower extremity circulation and prevent/improve lower extremity edema. Call your primary care provider and framework developer if you notice any extra swelling in your legs, ankles, feet or abdomen, if you have a new dry cough, if your shortness of breath worsens with activity or at rest, or if you feel more fatigued. Thank you for allowing us to participate in your care, it was truly a pleasure having you for our patient!!! Discharge Disposition: HOME SELF-CARE
== END 2024-05-19 10:23 | disposition home or self-care (01) | DRG 291 ==
LOC: EC 15:43 → 3SCARD 17:43 → 4SSUR 05-18 20:51
PROVIDERS: ADMIT Internal Medicine; ATTEND Internal Medicine
DX: I13.0 Hypertensive heart and chronic kidney disease with heart failure and stage 1 through stage 4 chronic kidney disease, or unspecified chronic kidney disease (principal); I50.23 Acute on chronic systolic (congestive) heart failure; J18.9 Pneumonia, unspecified organism; F05 Delirium due to known physiological condition; D63.1 Anemia in chronic kidney disease; N18.32 Chronic kidney disease, stage 3b; I48.91 Unspecified atrial fibrillation; I25.5 Ischemic cardiomyopathy; I25.10 Atherosclerotic heart disease of native coronary artery without angina pectoris; E78.5 Hyperlipidemia, unspecified; R54 Age-related physical debility; E87.5 Hyperkalemia; Z96.653 Presence of artificial knee joint, bilateral; Z79.02 Long term (current) use of antithrombotics/antiplatelets; Z79.82 Long term (current) use of aspirin; Z79.84 Long term (current) use of oral hypoglycemic drugs; Z79.899 Other long term (current) drug therapy; Z87.891 Personal history of nicotine dependence; Z86.73 Personal history of transient ischemic attack (TIA), and cerebral infarction without residual deficits
CPT/HCPCS: 36415; 51702; 51798; 71045; 80048; 80053; 83735; 83880; 84100; 84145; 84484; 85025; 85027; 85610; 85730; 87040; 87070; 87205; 93005; 94640; 94760; 96365; 96366; 96368; 96375; 96376; 99291

== ENCOUNTER 2024-06-14 10:04 | Inpatient (IN) | payer OTHER, MEDICARE ==
--- NOTE | 2024-06-14 10:14 | ED ---
General Adult HPI - General Stated complaint: low heart rate Time Seen by Provider: 06/14/24 10:04 Source: patient, RN notes reviewed, old records reviewed - History of Present Illness Initial comments: This is an 89-year-old male who presents to the emergency department stating that he woke up this morning at 3 AM and was very short of breath and it continued throughout the day so he called EMS. When EMS got there the patient's heart rate was in the low 30s and he was very short of breath. Patient was [facility] and the patient started stating he was feeling much better and when he took his pulse it was in the 60s at this time. Patient states he currently feels back to his baseline and is not short of breath. Patient states the research aide been trying to work out why his heart rate has been so slow but he has not had any answers as of late. Patient denies any recent fever chills or cough or patient [place] any chest pain or. Patient denies any abdominal pain patient has nausea vomiting diarrhea. - Related Data Home Medications Medication Instructions Recorded Confirmed Febuxostat [Uloric] 40 mg PO DAILY 01/15/24 05/15/24 Ascorbic Acid [Vitamin C] 500 mg PO DAILY 05/06/24 05/15/24 Cholecalciferol [Vitamin D3 (25 25 mcg PO DAILY 05/06/24 05/15/24 Mcg = 1000 Iu)] Previous Rx's Medication Instructions Recorded Aspirin 81 mg PO DAILY #30 tab 01/18/24 Dapagliflozin Propanediol [Farxiga] 10 mg PO DAILY #30 tab 01/18/24 Amiodarone [Cordarone] 200 mg PO DAILY #60 tab 05/08/24 Atorvastatin [Lipitor] 80 mg PO DAILY #60 tab 05/08/24 Isosorbide Mononitrate ER [Imdur] 30 mg PO DAILY #60 tab 05/08/24 Losartan [Cozaar] 25 mg PO DAILY #60 tab 05/08/24 Metoprolol Succinate (ER) [Toprol 25 mg PO DAILY #60 tab 05/08/24 XL] Clopidogrel [Plavix] 75 mg PO DAILY 30 Days #30 tab 05/19/24 Furosemide [Lasix] 40 mg PO BID@0900,1600 30 Days #60 05/19/24 tab Allergies Allergy/AdvReac Type Severity Reaction Status Date / Time No Known Allergies Allergy Verified 05/15/24 18:23 Review of Systems ROS Statement: Those systems with pertinent positive or pertinent negative responses have been documented in the HPI. ROS Other: All systems not noted in ROS Statement are negative. Past Medical History Past Medical History: Heart Failure, CVA/TIA, Hyperlipidemia, Hypertension Additional Past Medical History / Comment(s): recent adm. to [facility] for SOB, CHF, SOB w/exertion much improved per pt., some swelling lower extremities, stroke 2018-no residual effects, rheumatic fever @age of 14 History of Any Multi-Drug Resistant Organisms: None Reported Past Surgical History: Back Surgery, Joint Replacement Additional Past Surgical History / Comment(s): thu knee replacements, masoud in neck from surg., right ear surg.years ago for ruptured eardrum Past Anesthesia/Blood Transfusion Reactions: No Reported Reaction Past Psychological History: No Psychological Hx Reported Smoking Status: Former smoker Past Alcohol Use History: None Reported Past Drug Use History: None Reported - Past Family History Mother Family Medical History: Hyperlipidemia General Exam - General Exam Comments Initial Comments: GENERAL: Patient is well-developed and well-nourished. Patient is nontoxic and well- hydrated and is in no acute distress. ENT: Neck is soft and supple. No significant lymphadenopathy is noted. Oropharynx i s clear. Moist mucous membranes. Neck has full range of motion without eliciting any pain. EYES: The sclera were anicteric and conjunctiva were pink and moist. Extraocular movements were intact and pupils were equal round and reactive to light. Eyelids were unremarkable. PULMONARY: Unlabored respirations. Good breath sounds bilaterally. No audible rales rhonchi or wheezing was noted. CARDIOVASCULAR: There is a regular rate and rhythm without any murmurs gallops or rubs. ABDOMEN: Soft and nontender with normal bowel sounds. SKIN: Skin is clear with no lesions or rashes and otherwise unremarkable. NEUROLOGIC: Patient is alert and oriented x3. Cranial nerves II through XII are grossly intact. Motor and sensory are also intact. Normal speech, volume and content. Symmetrical smile. MUSCULOSKELETAL: Normal extremities with adequate strength and full range of motion. LYMPHATICS: No significant lymphadenopathy is noted PSYCHIATRIC: Normal psychiatric evaluation. Course Vital Signs 06/14/24 10:06 Temperature 98.4 F Pulse Rate 67 Respiratory 22 Rate Blood Pressure 123/67 O2 Sat by Pulse 94 L Oximetry Medical Decision Making - Medical Decision Making EKG is interpreted by myself but EKG shows a sinus rhythm at 70 bpm patient has frequent PVCs. Patient has a AK interval 176 QRS is 133 QT interval is 442 QTc is 462. Patient's EKG shows no ST segment elevation Was pt. sent in by a medical professional or institution ([facility], [facility], urgent ca re, hospital, or group home...) When possible be specific @ -No Did you speak to anyone other than the patient for history (EMS, parent, family, police, friend...)? What history was obtained from this source @ -No Did you review nursing and triage notes (agree or disagree)? Why? @ -I reviewed and agree with nursing and triage notes Were old charts reviewed (outside hosp., previous admission, EMS record, old EKG, old radiological studies, urgent care reports/EKG's, group home records)? Report findings @ -No old charts were reviewed Differential Diagnosis? @ -Differential Dyspnea: Coronary syndrome, arrhythmia, tamponade, asthma, COPD, pulmonary embolism, pneumonia, pneumothorax, pulmonary effusion, anaphylaxis, diabetic ketoacidosis, flailed chest, pulmonary contusion, diaphragmatic rupture, anemia, neuromuscular, this is not meant to be an all-inclusive list. EKG interpreted by me (3pts min.). @ -As above X-rays interpreted by me (1pt min.). @ -Chest x-ray shows a pleural effusion on the right larger than the previous x- ray CT interpreted by me (1pt min.). @ -None done U/S interpreted by me (1pt. min.). @ -None done What testing was considered but not performed or refused? (CT, X-rays, U/S, labs)? Why? @ -None What meds were considered but not given or refused? Why? @ -None Did you discuss the management of the patient with other professionals (professionals i.e. [facility], [facility], lab, RT, psych nurse, social contact worker, eggs inspector, teacher, equal opportunity officer, piano case maker)? Give summary @ -I spoke with sound physicians he agreed to admit the patient admit the patient wrote admitting orders Was smoking cessation discussed for >3mins.? @ -No Was critical care preformed (if so, how long)? @ -No Were there social determinants of health that impacted care today? How? (Homelessness, low income, unemployed, alcoholism, drug addiction, transportation, low edu. Level, literacy, decrease access to med. care, snf, rehab)? @ -No Was there de-escalation of care discussed even if they declined (Discuss DNR or withdrawal of care, Hospice)? DNR status @ -No What co-morbidities impacted this encounter? (DM, HTN, Smoking, COPD, CAD, Cancer, CVA, ARF, Chemo, Hep., AIDS, mental health diagnosis, sleep apnea, morbid obesity)? @ -None Was patient admitted / discharged? Hospital course, mention meds given and route, prescriptions, significant lab abnormalities, going to OR and other p ertinent info. @ -Patient was found to have a heart rate in the low 30s when EMS arrived however the patient got up into the 60s and 70s by the time he arrived at the hospital and he was without complaint at this time. Patient's chest x-ray shows pleural effusion. Patient will be admitted to sound physician with a cardiology consult Undiagnosed new problem with uncertain prognosis? @ -No Drug Therapy requiring intensive monitoring for toxicity (Heparin, Nitro, Insulin, Cardizem)? @ -No Were any procedures done? @ -No Diagnosis/symptom? @ -Bradycardia Acute, or Chronic, or Acute on Chronic? @ -Acute Uncomplicated (without systemic symptoms) or Complicated (systemic symptoms)? @ -Complicate Side effects of treatment? @ -No Exacerbation, Progression, or Severe Exacerbation? @ -No Poses a threat to life or bodily function? How? (Chest pain, [place], [place], pneumonia, PE, COPD, DKA, ARF, appy, cholecystitis, CVA, Diverticulitis, Homicidal, Suicidal, threat to staff... and all critical care pts) @ -No Diagnosis/symptom? @ -Pleural effusion Acute, or Chronic, or Acute on Chronic? @ -Acute Uncomplicated (without systemic symptoms) or Complicated (systemic symptoms)? @ -Uncomplicated Side effects of treatment? @ -None Exacerbation, Progression, or Severe Exacerbation] @ -No Poses a threat to life or bodily function? @ -No - Lab Data Result diagrams: 06/14/24 10:26 06/14/24 10:26 Lab Results 11/17/24 11/17/24 11/17/24 Range/Units 10:26 10:26 10:26 WBC 9.2 (3.8-10.6) k/uL RBC 4.15 L (4.30-5.90) m/uL Hgb 13.2 (13.0-17.5) gm/dL Hct 40.6 (39.0-53.0) % MCV 97.8 (80.0-100.0) fL MCH 31.9 (25.0-35.0) pg MCHC 32.6 (31.0-37.0) g/dL RDW 14.3 (11.5-15.5) % Plt Count 160 (150-450) k/uL MPV 9.3 Neutrophils % 75 % Lymphocytes % 13 % Monocytes % 8 % Eosinophils % 1 % Basophils % 0 % Neutrophils # 6.9 (1.3-7.7) k/uL Lymphocytes # 1.2 (1.0-4.8) k/uL Monocytes # 0.8 (0-1.0) k/uL Eosinophils # 0.1 (0-0.7) k/uL Basophils # 0.0 (0-0.2) k/uL PT 12.0 (10.0-12.5) sec INR 1.1 (<1.2) APTT 22.6 (22.0-30.0) sec Sodium 139 (137-145) mmol/L Potassium 4.3 (3.5-5.1) mmol/L Chloride 104 (98-107) mmol/L Carbon Dioxide 23 (22-30) mmol/L Anion Gap 12 mmol/L BUN 30 H (9-20) mg/dL Creatinine 1.76 H (0.66-1.25) mg/dL Est GFR (CKD-EPI)AfAm 39 (>60 ml/min/1.73 sqM) Est GFR (CKD-EPI)NonAf 34 (>60 ml/min/1.73 sqM) Glucose 140 H (74-99) mg/dL Calcium 9.3 (8.4-10.2) mg/dL Magnesium 2.2 (1.6-2.3) mg/dL Total Bilirubin 1.9 H (0.2-1.3) mg/dL AST 30 (17-59) U/L ALT 21 (4-49) U/L Alkaline Phosphatase 72 (38-126) U/L Troponin I (0.000-0.034) ng/mL NT-Pro-B Natriuret Pep 22776 pg/mL Total Protein 6.9 (6.3-8.2) g/dL Albumin 4.0 (3.5-5.0) g/dL 06/14/24 Range/Units 10:26 WBC (3.8-10.6) k/uL RBC (4.30-5.90) m/uL Hgb (13.0-17.5) gm/dL Hct (39.0-53.0) % MCV (80.0-100.0) fL MCH (25.0-35.0) pg MCHC (31.0-37.0) g/dL RDW (11.5-15.5) % Plt Count (150-450) k/uL MPV Neutrophils % % Lymphocytes % % Monocytes % % Eosinophils % % Basophils % % Neutrophils # (1.3-7.7) k/uL Lymphocytes # (1.0-4.8) k/uL Monocytes # (0-1.0) k/uL Eosinophils # (0-0.7) k/uL Basophils # (0-0.2) k/uL PT (10.0-12.5) sec INR (<1.2) APTT (22.0-30.0) sec Sodium (137-145) mmol/L Potassium (3.5-5.1) mmol/L Chloride (98-107) mmol/L Carbon Dioxide (22-30) mmol/L Anion Gap mmol/L BUN (9-20) mg/dL Creatinine (0.66-1.25) mg/dL Est GFR (CKD-EPI)AfAm (>60 ml/min/1.73 sqM) Est GFR (CKD-EPI)NonAf (>60 ml/min/1.73 sqM) Glucose (74-99) mg/dL Calcium (8.4-10.2) mg/dL Magnesium (1.6-2.3) mg/dL Total Bilirubin (0.2-1.3) mg/dL AST (17-59) U/L ALT (4-49) U/L Alkaline Phosphatase (38-126) U/L Troponin I 0.028 (0.000-0.034) ng/mL NT-Pro-B Natriuret Pep pg/mL Total Protein (6.3-8.2) g/dL Albumin (3.5-5.0) g/dL Disposition Clinical Impression: Pleural effusion, Bradycardia Disposition: ADMITTED IP TO THIS HOSP Referrals: [facility],Clinic [Primary Care Provider] - 1-2 days Time of Disposition: 11:54
[2024-06-14 10:36] LABS: Basophils % (A) 0 %; Eosinophils # (A) 0.1 k/uL (0-0.7); Eosinophils % (A) 1 %; HCT 40.6 % (39.0-53.0); HGB 13.2 gm/dL (13.0-17.5); Lymphocytes # (A) 1.2 k/uL (1.0-4.8); Lymphocytes % (A) 13 %; MCH 31.9 pg (25.0-35.0); MCHC 32.6 g/dL (31.0-37.0); MCV 97.8 fL (80.0-100.0); Mean Platelet Volume 9.3; Monocytes # (A) 0.8 k/uL (0-1.0); Monocytes % (A) 8 %; Neutrophils # (A) 6.9 k/uL (1.3-7.7); Neutrophils % (A) 75 %; Platelet Count 160 k/uL (150-450); RBC 4.15 m/uL (4.30-5.90); RDW 14.3 % (11.5-15.5); WBC 9.2 k/uL (3.8-10.6)
[2024-06-14 10:45] LABS: INR 1.1 (<1.2); Partial Thromboplastin Time 22.6 sec (22.0-30.0)
[2024-06-14 10:49] LABS: ALT 21 U/L (4-49); AST 30 U/L (17-59); African American GFR (CKD) 39 (>60 ml/min/1.73 sqM); Alkaline Phosphatase 72 U/L (38-126); Anion Gap 12 mmol/L; Blood Urea Nitrogen 30 mg/dL (9-20); Calcium 9.3 mg/dL (8.4-10.2); Carbon Dioxide 23 mmol/L (22-30); Chloride 104 mmol/L (98-107); Glucose 140 mg/dL (74-99); Magnesium 2.2 mg/dL (1.6-2.3); Non-African American GFR(CKD) 34 (>60 ml/min/1.73 sqM); Potassium 4.3 mmol/L (3.5-5.1); Sodium 139 mmol/L (137-145); Total Bilirubin 1.9 mg/dL (0.2-1.3); Total Protein 6.9 g/dL (6.3-8.2)
--- NOTE | 2024-06-14 10:52 | XR ---
EXAMINATION TYPE: XR chest 2V DATE OF EXAM: 06/14/2024 10:36 AM COMPARISON: 05/18/2024 CLINICAL INDICATION: Male, 89 years old with history of dysrhythmia, TECHNIQUE: XR chest 2V view(s) obtained. FINDINGS: The heart size is borderline prominent. The pulmonary vasculature is normal. Right lower lobe infiltrate with small right pleural effusion is present. Correlate for pneumonia.. IMPRESSION: 1. Right lower lobe infiltrate with small right pleural effusion. Correlate for pneumonia. Follow-up recommended. [facility], , 06/14/2024 10:50 AM
[2024-06-14 11:19] LABS: NT-Pro-B-Type Natriuretic Pept 29800 pg/mL
--- NOTE | 2024-06-14 12:13 | P.HPIM ---
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 He claims that he has been having frequent episodes of shortness of breath each proceeding with low heart rate. He claims that this morning he was in his bed, awake when he started experiencing shortness of breath. EMS arrived and noted that his heart rate was in the 30s. He is denying any significant cough or sputum production, no fevers or chills, no abdominal pain nausea, or vomiting. He denies any orthopnea, has lower extremity edema, denies any PND. In the ED, temperature was 98.4, pulse 67, respiratory rate 22, blood pressure 123/67, saturating at 94% on room air. EKG independently interpreted, shows sinus rhythm with frequent PVCs. Chest x-ray independently interpreted, shows right basilar opacity, likely effusion. WBC 9.2, hemoglobin 13.2, sodium 139, potassium 4.3, creatinine 1.76, magnesium 2.2, BNP 29,000, troponin 0.028. Patient admitted for mild CHF exacerbation and symptomatic bradycardia Pertinent positives and negatives as discussed in HPI, a complete review of systems was performed and all other systems are negative. Patient seen and examined at bedside. Vital signs reviewed General: nontoxic, no distress, appears at stated age Derm: warm, dry Head: atraumatic, normocephalic, symmetric Eyes: EOMI, no lid lag, anicteric sclera, pupils equal round reactive to light ENT: Nose and ears atraumatic Neck: No thyromegaly, supple Mouth: no lip lesion, mucus membranes moist Cardiovascular: S1S2 reg, no murmur, trace peripheral edema Lungs: Bibasilar rales, no wheeze, no accessory muscle use Abdominal: soft, nontender to palpation, no guarding, no appreciable organomegaly Ext: no gross muscle atrophy, muscle strength muscle strength 5 out of 5 in all 4 extremities, no contractures Neuro: CN II-XII grossly intact Psych: Alert, oriented, appropriate affect Assessment/Plan: Active: Acute systolic heart failure exacerbation, mild Symptomatic bradycardia History of ischemic cardiomyopathy Multivessel CAD Frequent PVCs Atrial fibrillation? CKD stage III, stable -Continue telemetry monitoring -IV Lasix 40 twice daily, monitor electrolytes -Continue Imdur 30 mg daily, losartan 25 daily, Farxiga 10 mg daily, aspirin 81 mg, atorvastatin 80 mg, Plavix 75 mg, patient also on amiodarone, currently on hold -Hold metoprolol -Cardiology consulted -Intake and output, daily weights -TSH ordered -Patient may benefit from pacemaker if continued symptomatic bradycardia The patient is admitted with an anticipated greater than 2 midnight stay as inpatient status for evaluation of CHF exacerbation. Surrogate decision-maker: Spouse CODE STATUS: Full code DVT prophylaxis: Subcu heparin Anticipated discharge date: Pending clinical course Anticipated discharge place: Pending clinical course A total of 65 minutes was spent on the care of this complex patient more than 50% of the time was spent in counseling and care coordination. Past Medical History Past Medical History: Heart Failure, CVA/TIA, Hyperlipidemia, Hypertension Additional Past Medical History / Comment(s): recent adm. to [facility] for SOB, CHF, SOB w/exertion much improved per pt., some swelling lower extremities, stroke 2018-no residual effects, rheumatic fever @age of 14 History of Any Multi-Drug Resistant Organisms: None Reported Past Surgical History: Back Surgery, Joint Replacement Additional Past Surgical History / Comment(s): thu knee replacements, masoud in neck from surg., right ear surg.years ago for ruptured eardrum Past Anesthesia/Blood Transfusion Reactions: No Reported Reaction Past Psychological History: No Psychological Hx Reported Smoking Status: Former smoker Past Alcohol Use History: None Reported Past Drug Use History: None Reported - Past Family History Mother Family Medical History: Hyperlipidemia Medications and Allergies Home Medications Medication Instructions Recorded Confirmed Type Febuxostat [Uloric] 40 mg PO DAILY 01/15/24 05/15/24 History Aspirin 81 mg PO DAILY #30 tab 01/18/24 05/15/24 Rx Dapagliflozin Propanediol [Farxiga] 10 mg PO DAILY #30 tab 01/18/24 05/15/24 Rx Ascorbic Acid [Vitamin C] 500 mg PO DAILY 05/06/24 05/15/24 History Cholecalciferol [Vitamin D3 (25 25 mcg PO DAILY 05/06/24 05/15/24 History Mcg = 1000 Iu)] Amiodarone [Cordarone] 200 mg PO DAILY #60 tab 05/08/24 05/15/24 Rx Atorvastatin [Lipitor] 80 mg PO DAILY #60 tab 05/08/24 05/15/24 Rx Isosorbide Mononitrate ER [Imdur] 30 mg PO DAILY #60 tab 05/08/24 05/15/24 Rx Losartan [Cozaar] 25 mg PO DAILY #60 tab 05/08/24 05/15/24 Rx Metoprolol Succinate (ER) [Toprol 25 mg PO DAILY #60 tab 05/08/24 05/15/24 Rx XL] Clopidogrel [Plavix] 75 mg PO DAILY 30 Days #30 tab 05/19/24 Rx Furosemide [Lasix] 40 mg PO BID@0900,1600 30 Days #60 05/19/24 Rx tab Allergies Allergy/AdvReac Type Severity Reaction Status Date / Time No Known Allergies Allergy Verified 05/15/24 18:23 Physical Exam Vitals: Vital Signs Temp Pulse Resp BP Pulse Ox 06/14/24 10:06 98.4 F 67 22 123/67 94 L Intake and Output 06/13/24 06/14/24 06/14/24 22:59 06:59 14:59 Other: Weight 88.904 kg Results CBC & Chem 7: 06/14/24 10:26 06/14/24 10:26 Labs: Abnormal Lab Results - Last 24 Hours (Table) 06/14/24 06/14/24 Range/Units 10:26 10:26 RBC 4.15 L (4.30-5.90) m/uL BUN 30 H (9-20) mg/dL Creatinine 1.76 H (0.66-1.25) mg/dL Glucose 140 H (74-99) mg/dL Total Bilirubin 1.9 H (0.2-1.3) mg/dL
[2024-06-14] MEDS: FUROSEMIDE 10 MG/ML 4 ML VIAL IV STA (12:24)
[2024-06-14 13:53] LABS: T4, Free (Free Thyroxine) 1.62 ng/dL (0.78-2.19)
[2024-06-14] MEDS: HEPARIN SODIUM,PORCINE 5,000 UNIT/ML 1 ML VIAL SQ SCH (15:49)
[2024-06-14] MEDS: FUROSEMIDE 10 MG/ML 4 ML VIAL IV SCH (20:17)
[2024-06-15 08:04] LABS: African American GFR (CKD) 35 (>60 ml/min/1.73 sqM); Anion Gap 11 mmol/L; Blood Urea Nitrogen 32 mg/dL (9-20); Calcium 9.4 mg/dL (8.4-10.2); Carbon Dioxide 25 mmol/L (22-30); Chloride 102 mmol/L (98-107); Glucose 96 mg/dL (74-99); Magnesium 2.1 mg/dL (1.6-2.3); Non-African American GFR(CKD) 30 (>60 ml/min/1.73 sqM); Potassium 4.4 mmol/L (3.5-5.1); Sodium 138 mmol/L (137-145)
[2024-06-15] MEDS: LOSARTAN 25 MG TAB PO SCH (08:44)
[2024-06-15] MEDS: ATORVASTATIN 80 MG TAB PO SCH (08:44)
[2024-06-15] MEDS: ISOSORBIDE MONONITRATE ER 30 MG TAB.ER.24H PO SCH (08:44)
[2024-06-15] MEDS: ASPIRIN 81 MG PO SCH (08:44)
[2024-06-15] MEDS: DAPAGLIFLOZIN PROPANEDIOL 10 MG TABLET PO SCH (08:44)
[2024-06-15] MEDS: CLOPIDOGREL 75 MG TAB PO SCH (08:44)
--- NOTE | 2024-06-15 12:22 | P.CRDCN ---
History of Present Illness Consult date: 06/15/24 Reason for Consult (text): Bradycardia History of present illness: This is an 89-year-old male patient of Dr. Clark with past medical history of coronary artery disease, cardiomyopathy, hypertension, dyslipidemia, chronic systolic heart failure, chronic kidney disease stage III. We have been asked to evaluate the patient for bradycardia. Patient and state that he has had ongoing difficulty with shortness of breath either at rest or with activity since December of this year. Patient states that he becomes quite short of breath to the point where he could not eat this morning and his heart rate has been found at home to be in the 30s. He states that EMS took his heart rate when he got into the ambulance. He also states he has some left ankle edema. Patient has had 4 hospitalizations since December. He states when he leaves the hospital he is feeling better for about a week. He denies having any palpitations or heart racing no dizziness. He is noted to have significant amount of bigeminy on telemetry. He feels good at rest right now and feels the oxygen may have helped. He has received 2 doses of IV Lasix 40 mg. Blood pressure 114/56, heart rate 4362, pulse ox 97% on 2 L nasal cannula. Patient has been started on IV Lasix 40 mg every 12 hours. Patient was last seen in the office with Dr. Clark on 05/27/2024 and at that time multiple medication changes were made including discontinuing amiodarone, discontinuing Farxiga, discontinuing Lasix, discontinuing Jardiance, Lipitor was changed to 80 mg daily and losartan was changed to 100 mg daily. Patient was also to be scheduled for loop recorder and blood work before his next visit. During patient's last hospitalization, he had elevated troponins due to worsening renal function, also had episode of NSVT and started on amiodarone at that time. Dr. Cole discussed treatment options with the patient and his in detail. He will further discuss the case with Dr. Clark. -EKG: Sinus rhythm with frequent PVCs, IVCD at 70 bpm -Chest x-ray: Right lower lobe infiltrate with small right pleural effusion. Correlate for pneumonia. -Laboratory studies: WBC 9.2, hemoglobin 13.2. BUN 32, creatinine 1.95, potassium 4.4. Troponin negative x 1. proBNP 29,800. TSH elevated at 6.15 with normal free T41.62. -Home cardiac medications: Amiodarone 200 mg daily, aspirin 81 mg daily, atorvastatin 80 mg daily, Plavix 75 mg daily, Farxiga 10 mg daily, Lasix 40 mg twice daily, Imdur 30 mg daily, losartan 25 mg daily, Toprol-XL 25 mg daily according to hospital record. -Cardiac catheterization performed 02/19/2024 revealed 30% proximal LAD, 99% mid LAD, 99% proximal OM1, 90% proximal RCA, 80% mid RCA, 80% distal RCA, right dominant, severely calcified coronaries. -Echocardiogram performed 05/06/2024 revealed EF of 20%, moderate to severe MR, mild to moderate AR, RVSP estimated 67 mmHg. -Lexiscan Cardiolite stress test performed 03/04/2024 revealed EF of 27% with large fixed inferior defect. Review Of Systems: At the time of my exam: CONSTITUTIONAL: Denies fever or chills. HEENT: Denies blurred vision, vision changes, or eye pain. Denies hemoptysis CARDIOVASCULAR: Denies chest pain. Denies orthopnea. Denies PND. Denies palpitations RESPIRATORY: Reports dyspnea on exertion, reports shortness of breath. GASTROINTESTINAL: Denies abdominal pain. Denies nausea or vomiting. HEMATOLOGIC: Denies bleeding disorders. GENITOURINARY: Denies any blood in urine. SKIN: Denies puritis. Denies rash. Physical examination: Gen: This is an 89-year-old male in no acute distress VS: reviewed HEENT: Head is atraumatic, normocephalic. Pupils equal, round. Sclerae is anicteric. NECK: Supple. No JVD. LUNGS: Clear to auscultation. No wheezes or rhonchi. No intercostal retractions. HEART: Irregular rate and rhythm. Systolic murmur. ABDOMEN: Soft No tenderness. EXTREMITIES: No pedal edema. No calf tenderness. NEUROLOGICAL: Patient is awake, alert and oriented x3. Assessment: Bradycardia possibly due to inaccurate counting of heartbeats due to bigeminy Acute on chronic systolic heart failure Bigeminy and recent episode of NSVT on last hospitalization Coronary artery disease Ischemic cardiomyopathy Valvular heart disease with moderate to severe MR and mild to moderate aortic regurgitation Severe pulmonary hypertension Hypertension Hyperlipidemia Plan: Resume patient's home cardiac medications Hold amiodarone and AV naveen medications Continue telemetry monitoring Continue IV Lasix 40 mg every 12 hours Monitor CAM, daily weights, electrolytes and renal function Review case with Dr. Clark No need to repeat echocardiogram as this was done on 05/06 Further recommendations to follow based upon clinical course Thank you kindly for this consultation. Nurse practitioner note has been reviewed, I agree with documented findings and plan of care. Patient was seen and examined. Past Medical History Past Medical History: Heart Failure, CVA/TIA, Hyperlipidemia, Hypertension Additional Past Medical History / Comment(s): recent adm. to [facility] for SOB, CHF, SOB w/exertion much improved per pt., some swelling lower extremities, stroke 2018-no residual effects, rheumatic fever @age of 14 History of Any Multi-Drug Resistant Organisms: None Reported Past Surgical History: Back Surgery, Joint Replacement Additional Past Surgical History / Comment(s): thu knee replacements, masoud in neck from surg., right ear surg.years ago for ruptured eardrum Past Anesthesia/Blood Transfusion Reactions: No Reported Reaction Past Psychological History: No Psychological Hx Reported Smoking Status: Former smoker Past Alcohol Use History: None Reported Additional Past Alcohol Use History / Comment(s): quit smoking 1980, smoked 26 yrs., 1ppd Past Drug Use History: None Reported - Past Family History Mother Family Medical History: Hyperlipidemia Medications and Allergies Home Medications Medication Instructions Recorded Confirmed Type Febuxostat [Uloric] 40 mg PO DAILY 01/15/24 06/14/24 History Aspirin 81 mg PO DAILY #30 tab 01/18/24 06/14/24 Rx Dapagliflozin Propanediol [Farxiga] 10 mg PO DAILY #30 tab 01/18/24 06/14/24 Rx Ascorbic Acid [Vitamin C] 500 mg PO DAILY 05/06/24 06/14/24 History Cholecalciferol [Vitamin D3 (25 25 mcg PO DAILY 05/06/24 06/14/24 History Mcg = 1000 Iu)] Amiodarone [Cordarone] 200 mg PO DAILY #60 tab 05/08/24 06/14/24 Rx Atorvastatin [Lipitor] 80 mg PO DAILY #60 tab 05/08/24 06/14/24 Rx Isosorbide Mononitrate ER [Imdur] 30 mg PO DAILY #60 tab 05/08/24 06/14/24 Rx Losartan [Cozaar] 25 mg PO DAILY #60 tab 05/08/24 06/14/24 Rx Metoprolol Succinate (ER) [Toprol 25 mg PO DAILY #60 tab 05/08/24 06/14/24 Rx XL] Clopidogrel [Plavix] 75 mg PO DAILY 30 Days #30 tab 05/19/24 06/14/24 Rx Furosemide [Lasix] 40 mg PO BID@0900,1600 30 Days #60 05/19/24 06/14/24 Rx tab Allergies Allergy/AdvReac Type Severity Reaction Status Date / Time No Known Allergies Allergy Verified 06/14/24 12:21 Physical Exam Vitals: Vital Signs Temp Pulse Pulse Resp BP BP Pulse Ox 06/15/24 03:31 97.6 F 43 L 18 114/56 97 06/15/24 01:49 62 16 06/15/24 00:42 62 16 06/15/24 00:00 97.7 F 63 18 122/75 98 06/14/24 20:00 62 16 06/14/24 19:27 97.6 F 62 16 108/65 97 06/14/24 15:08 97.7 F 68 20 109/58 93 L 06/14/24 14:21 97.5 F L 63 103/86 96 06/14/24 10:06 98.4 F 67 22 123/67 94 L Intake and Output 06/14/24 06/15/24 06/15/24 22:59 06:59 14:59 Intake Total 10 Output Total 675 700 Balance -675 -690 Intake: IV 10 0.9 10 Output: Urine 675 700 Other: Voiding Method Urinal Urinal Weight 90.1 kg Results 06/14/24 10:26 06/15/24 06:33 Cardiac Enzymes 06/14/24 06/14/24 Range/Units 10:26 10:26 AST 30 (17-59) U/L Troponin I 0.028 (0.000-0.034) ng/mL Coagulation 06/14/24 Range/Units 10:26 PT 12.0 (10.0-12.5) sec APTT 22.6 (22.0-30.0) sec CBC 06/14/24 Range/Units 10:26 WBC 9.2 (3.8-10.6) k/uL RBC 4.15 L (4.30-5.90) m/uL Hgb 13.2 (13.0-17.5) gm/dL Hct 40.6 (39.0-53.0) % Plt Count 160 (150-450) k/uL Comprehensive Metabolic Panel 06/14/24 06/15/24 Range/Units 10:26 06:33 Sodium 139 138 (137-145) mmol/L Potassium 4.3 4.4 (3.5-5.1) mmol/L Chloride 104 102 (98-107) mmol/L Carbon Dioxide 23 25 (22-30) mmol/L BUN 30 H 32 H (9-20) mg/dL Creatinine 1.76 H 1.95 H (0.66-1.25) mg/dL Glucose 140 H 96 (74-99) mg/dL Calcium 9.3 9.4 (8.4-10.2) mg/dL AST 30 (17-59) U/L ALT 21 (4-49) U/L Alkaline Phosphatase 72 (38-126) U/L Total Protein 6.9 (6.3-8.2) g/dL Albumin 4.0 (3.5-5.0) g/dL Current Medications Generic Name Dose Route Start Last Admin Trade Name Freq PRN Reason Stop Dose Admin Aspirin 81 mg 06/15/24 09:00 Aspirin 81 Mg PO DAILY [facility] Atorvastatin Calcium 80 mg 06/15/24 09:00 Atorvastatin 80 Mg Tab PO DAILY [facility] Clopidogrel Bisulfate 75 mg 06/15/24 09:00 Clopidogrel 75 Mg Tab PO DAILY [facility] Dapagliflozin 10 mg 06/15/24 09:00 Dapagliflozin Propanediol 10 Mg Tablet PO DAILY [facility] Furosemide 40 mg 06/14/24 21:00 06/14/24 20:17 Furosemide 10 Mg/Ml 4 Ml Vial IV 40 mg Q12HR NONA Administration Heparin Sodium (Porcine) 5,000 unit 06/14/24 16:00 06/14/24 23:28 Heparin Sodium,Porcine 5,000 Unit/Ml 1 Ml Vial SQ 5,000 unit Q8HR NONA Administration Isosorbide Mononitrate 30 mg 06/15/24 09:00 Isosorbide Mononitrate Er 30 Mg Tab.Er.24h PO DAILY [facility] Losartan Potassium 25 mg 06/15/24 09:00 Losartan 25 Mg Tab PO DAILY NONA Intake and Output 06/14/24 06/15/24 06/15/24 22:59 06:59 14:59 Intake Total 10 Output Total 675 700 Balance -589 -317 Intake: IV 10 0.9 10 Output: Urine 751 700 Other: Voiding Method Urinal Urinal Weight 90.1 kg 06/14/24 10:26 06/15/24 06:33
--- NOTE | 2024-06-15 14:44 | P.PN ---
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 Noted to have a HR in the 30s at home. In the ED he underwent extensive evaluation. In the ED, temperature was 98.4, pulse 67, respiratory rate 22, blood pressure 123/67, saturating at 94% on room air. EKG showed sinus rhythm with frequent PVCs. Chest x-ray showed right basilar opacity, likely effusion. WBC 9.2, hemoglobin 13.2, sodium 139, potassium 4.3, creatinine 1.76, magnesium 2.2, BNP 29,000, troponin 0.028. Patient admitted for mild CHF exacerbation and symptomatic bradycardia. 06/15 Patient was seen and examined. Improved breathing. On 2.5L NC. Continued on Lasix 40 mg IV BID. Negative 1365 cc fluid balance. BMP BUN 32, Cr 1.95. General: non toxic, no distress, appears at stated age Derm: warm, dry Head: atraumatic, normocephalic, symmetric Eyes: EOMI, no lid lag, anicteric sclera Mouth: no lip lesion, mucus membranes moist Cardiovascular: S1S2 reg, no murmur Lungs: CTA bilateral, no rhonchi, no rales , no accessory muscle use Ext: no gross muscle atrophy, 1+ edema, no contractures Neuro: no focal neuro deficits Psych: Alert, oriented, appropriate affect Based on my assessment of this patient, this patient meets a high complexity level of care. CHF exacerbation EF 20-25%: Lasix 40 mg IV BID. Monitor renal function and electrolytes. Strict intake and outtake. Daily weights. Farxiga 10 mg PO QD, Imdur 30 mg PO QD, Losartan 25 mg PO QD. Cardiology on board. Symptomatic bradycardia: Hold Amiodarone and Metoprolol. CAD: ASA 81 mg PO QD. Lipitor 80 mg PO QD. Plavix 75 mg PO QD. MINDY on CKD: Monitor electrolytes and renal function while on Lasix. Hypertension CODE STATUS: FULL CODE DVT Prophylaxis: Heparin SQ GI Prophylaxis: Designated medical POA if patient is not able to make medical decisions for themselves: I have reviewed the following securities consultant notes: Cardiology I have reviewed the results of the following tests: BMP. I have ordered the following tests: BMP. I have discussed the care of this patient with the following independent h istorian: . I have independently interpreted the following test below: I have discussed the management of this patient with the following physician: Objective - Vital Signs Vital signs: Vital Signs Temp 97.5 F L 06/15/24 08:00 Pulse 58 L 06/15/24 11:28 Resp 20 06/15/24 11:28 BP 115/63 06/15/24 11:28 Pulse Ox 96 06/15/24 11:28 FiO2 Intake & Output 06/14/24 06/15/24 06/15/24 18:59 06:59 18:59 Intake Total 10 480 Output Total 450 925 450 Balance -450 -915 30 Weight 88.904 kg 90.1 kg Intake: IV 10 0.9 10 Oral 480 Output: Urine 450 925 450 Other: Voiding Method Urinal Urinal # Voids 1 - Labs CBC & Chem 7: 06/14/24 10:26 06/15/24 06:33 Labs: Abnormal Lab Results - Last 24 Hours (Table) 06/15/24 Range/Units 06:33 BUN 32 H (9-20) mg/dL Creatinine 1.95 H (0.66-1.25) mg/dL
[2024-06-16 09:11] LABS: HCT 39.7 % (39.0-53.0); HGB 12.8 gm/dL (13.0-17.5); MCH 31.6 pg (25.0-35.0); MCHC 32.2 g/dL (31.0-37.0); Mean Platelet Volume 9.2; Platelet Count 155 k/uL (150-450); RBC 4.05 m/uL (4.30-5.90); RDW 14.1 % (11.5-15.5); WBC 7.5 k/uL (3.8-10.6)
[2024-06-16 09:25] LABS: African American GFR (CKD) 34 (>60 ml/min/1.73 sqM); Anion Gap 10 mmol/L; Blood Urea Nitrogen 34 mg/dL (9-20); Calcium 9.1 mg/dL (8.4-10.2); Carbon Dioxide 27 mmol/L (22-30); Chloride 102 mmol/L (98-107); Glucose 110 mg/dL (74-99); Magnesium 2.2 mg/dL (1.6-2.3); Non-African American GFR(CKD) 29 (>60 ml/min/1.73 sqM); Potassium 3.9 mmol/L (3.5-5.1); Sodium 139 mmol/L (137-145)
--- NOTE | 2024-06-16 11:36 | P.PN ---
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 He presented to the ER on 06/14/24 with a chief complaint of shortness of breath on exertion and bradycardia with reported heart rate in the 30s at home. Upon arrival to our facility, patient underwent evaluation in the emergency department. On arrival vitals signs show blood pressure 123/67, heart rate 67, respiratory rate 22, temp 98.4 F, and SpO2 of 94% on room air. EKG was completed showing sinus mechanism with frequent PVCs at 70 bpm. X-ray completed showing right lower lobe infiltrate with small right pleural effusion. CBC unremarkable. Coagulation profile normal findings. BMP consistent with stage IIIb CKD with BUN of 30, creatinine of 1.76, GFR of 34 with baseline creatinine around 1.6. Blood glucose 140. Magnesium 2.2. Liver profile showing hyperbilirubinemia with total bili of 1.9. Troponin was 0.028 and proBNP was 29,800. TSH 6.150 and free T4 of 1.62. Patient has been noted to have bigeminy on telemetry monitoring. Patient admitted under our services with consultation to cardiology. Physical exam: Patient seen and fully evaluated at bedside. also at bedside. Patient reports breathing is slightly better, expresses that she is very concerned over recurrent readmissions and would like to talk to the brew house supervisor about procedures and her daughter has done research on. Patient denies having any headache, lightheadedness, dizziness, chest pain, palpitations, or any other complaints at this time. Vital signs reviewed and stable. General: Nontoxic, no distress and appears stated age. Derm: Skin warm and dry, normal coloration for ethnicity. Head: Atraumatic, normocephalic and symmetric. Eyes: EOM's intact, no lid lag, and anicteric sclera Mouth: no lip lesions, mucus membranes moist Cardiovascular: regular rate and rhythm with normal S1S2, systolic murmur, positive posterior tibial pulses bilaterally, and cap refill < 2 seconds. Lungs: Respirations even, regular, and unlabored on 2 L O2. Lungs diminished with bibasilar crackles worse on right. Abdominal: soft, nontender to palpation, no guarding, no appreciable organomegaly Ext: ROM intact. No gross muscle atrophy, scant pedal edema, no contractures Neuro: Speech clear, face symmetrical and CN II-XII grossly intact with no noted focal neuro deficits Psych: Alert and oriented to person, place, time, and situation. Appropriate and pleasant affect. Assessment and Plan of Care: Acute on chronic systolic CHF exacerbation, EF 20-25%: CAD Moderate to severe mitral regurgitation Mild aortic regurgitation -Cardiology following, reviewed documentation in chart. -Telemetry monitoring -Daily weights and strict monitoring of I's and O's -Cardiac diet -Lasix: 40 mg IVP twice daily -Continue daily medication regimen with aspirin 81 mg daily, Lipitor 80 mg daily, Plavix 75 mg daily, Farxiga 10 mg daily, Imdur 30 mg daily, and Losartan 25 mg daily. -Continued close monitoring of electrolytes while diuresing. Symptomatic bradycardia: -Hold Amiodarone and Metoprolol. -Telemetry monitoring -Cardiology following MINDY on CKD stage IIIb: Monitor electrolytes and renal function while on Lasix. Hypertension: Continue daily medication regimen with losartan 25 mg daily. Metoprolol and amiodarone was held secondary to symptomatic bradycardia. Hyperlipidemia: Continue daily medication regimen with Lipitor 80 mg daily. History of CVA: Continue daily medication regimen with aspirin 81 mg daily, Plavix 75 mg daily, and Lipitor 80 mg daily. Data and imaging reviewed: Vital signs reviewed. Blood pressure 109/75, heart rate 64, respiratory rate 20, temp 97.6 F, and SpO2 of 97% on 2 L. Morning labs reviewed. CBC showing stable normocytic anemia with hemoglobin of 12.8. BMP showing further elevation in renal function with BUN of 34, creatinine of 2.01, and GFR of 29. Blood glucose 110. Magnesium 2.2. CODE STATUS: FULL CODE DVT Prophylaxis: Heparin SQ Anticipated discharge date: Pending clinical course Anticipated discharge place: Pending clinical course Patient was seen independently by Nurse Pracitioner. This document was prepared using [employer] dictation software. Please allow for errors in fast food supervisor, while rare they do occur. Shashi Yoon NP rendered care for this patient independently, reviewed the findings and plan as documented in the note above and agree with plan. I did not physically speak with or examine the patient on this date. . Objective - Vital Signs Vital signs: Vital Signs Temp 98.0 F 06/16/24 03:29 Pulse 52 L 06/16/24 03:29 Resp 18 06/16/24 03:29 BP 124/67 06/16/24 03:29 Pulse Ox 96 06/16/24 03:29 FiO2 Intake & Output 06/15/24 06/16/24 06/16/24 18:59 06:59 18:59 Intake Total 480 Output Total 450 825 Balance 30 -825 Weight 90.2 kg Intake: Oral 480 Output: Urine 450 825 Other: Voiding Method Urinal Urinal # Voids 1 - Labs CBC & Chem 7: 06/16/24 08:29 06/16/24 08:29
--- NOTE | 2024-06-16 12:16 | CA ---
Transthoracic Echo Report Name: Kar Hernandez Age: 89 Gender: M : 1935 Exam Date: 06/16/2024 08:08 Exam Location: [place] [facility] Ht (in): 72 Wt (lb): 198 Ordering Physician: Vamsi Cole DO ([id number]) Attending/Referring Phys: Underwater Welder Mary Grace Thomson RDCS Procedure CPT: Indications: re: CHF, CAD Cardiac Hx: Technical Quality: Good Contrast 1: Total Dose (mL): Contrast 2: Total Dose (mL): MEASUREMENTS (Male / Female) Normal Values 2D ECHO LV Diastolic Diameter PLAX 6.2 cm 4.2 - 5.9 / 3.9 - 5.3 cm LV Systolic Diameter PLAX 5.6 cm IVS Diastolic Thickness 1.4 cm 0.6 - 1.0 / 0.6 - 0.9 cm LVPW Diastolic Thickness 1.4 cm 0.6 - 1.0 / 0.6 - 0.9 cm LV Relative Wall Thickness 0.5 RV Internal Dim ED PLAX 3.6 cm LA Systolic Diameter LX 4.7 cm 3.0 - 4.0 / 2.7 - 3.8 cm LV Diastolic Volume MOD BP 258.2 cm??? 67 - 155 / 56 - 104 cm??? LV Systolic Volume MOD BP 189.7 cm??? 22 - 58 / 19 - 49 cm??? LV Ejection Fraction MOD BP 26.5 % >= 55 % LV Cardiac Index MOD BP 2136.0 cm???/min???m??? LV Diastolic Volume MOD 4C 230.2 cm??? LV Systolic Volume MOD 4C 169.0 cm??? LV Ejection Fraction MOD 4C 26.6 % LV Cardiac Index MOD 4C 1909.4 cm???/min???m??? LV Diastolic Length 4C 9.8 cm LV Systolic Length 4C 9.4 cm LV Diastolic Volume MOD 2C 211.2 cm??? LV Systolic Volume MOD 2C 149.3 cm??? LV Ejection Fraction MOD 2C 29.3 % LV Cardiac Index MOD 2C 1927.8 cm???/min???m??? LV Diastolic Length 2C 10.6 cm LV Systolic Length 2C 10.5 cm M-MODE Aortic Root Diameter MM 4.6 cm AV Cusp Separation MM 2.4 cm DOPPLER AV Peak Velocity 213.7 cm/s AV Peak Gradient 18.3 mmHg AV Mean Velocity 143.2 cm/s AV Mean Gradient 9.0 mmHg AV Velocity Time Integral 40.2 cm AI Peak Velocity 241.7 cm/s AI Peak Gradient 23.4 mmHg AI Pressure Half Time 548.1 ms MV Peak Velocity 181.8 cm/s MV Peak Gradient 13.2 mmHg MV Mean Velocity 78.8 cm/s MV Mean Gradient 3.4 mmHg MV Velocity Time Integral 48.3 cm MV Area PHT 2.3 cm??? MR Peak Velocity 448.3 cm/s MR Peak Gradient 80.4 mmHg Mitral E Point Velocity 137.0 cm/s Mitral A Point Velocity 86.6 cm/s Mitral E to A Ratio 1.6 MV Deceleration Time 307.4 ms TR Peak Velocity 356.6 cm/s TR Peak Gradient 50.9 mmHg Right Ventricular Systolic Press 61.0 mmHg FINDINGS Left Ventricle Left ventricular ejection fraction is estimated at 20-25 %. Mildly increased septal wall thickness. Mildly increased left ventricular diastolic diameter. Severely increased left ventricular diastolic volume. Severely increased left ventricular systolic volume. Severely decreased left ventricular ejection fraction. Right Ventricle Mild right ventricular dilatation. Severe pulmonary hypertension. Right ventricular systolic pressure estimated at 61 mm hg. Right Atrium Mild right atrial dilatation. No right atrial thrombus or mass seen. Left Atrium Mildly increased left atrial diameter. No left atrial thrombus or mass present. Mitral Valve Mitral valve thickened. Mild mitral annular calcification. [id number] mitral regurgitation. Mild mitral stenosis. Aortic Valve Trileaflet aortic valve. Aortic valve sclerosis. Mild aortic stenosis with a peak gradient of 18 mmHg and a mean gradient of 9 mmHg. Mild aortic regurgitation. Tricuspid Valve Structurally normal tricuspid valve. Severe tricuspid regurgitation. Pulmonic Valve Structurally normal pulmonic valve. Mild pulmonic regurgitation. Pericardium No pericardial or pleural effusion. Aorta Moderate aortic dilatation at the level of the sinuses of valsalva 46 mm CONCLUSIONS LVEF 20 to 25% Severely dilated LV cavity with severely reduced global systolic function. Apical and periapical hypokinesia. Mildly dilated RV cavity with reduced systolic function. Severe pulmonary hypertension with RVSP of 61 mmHg Moderate mitral regurgitation Mild aortic stenosis with mean gradient of 9 mmHg, mild aortic regurgitation Severe tricuspid regurgitation Dilated aortic root measuring at 4.6 cm No significant difference when compared to prior echo from 12/2023. Echo contrast was not used to therefore could not exclude possibility LV thrombus Previewed by: Dr Telly Ruiz (Electronically Signed) Final Date: 16 June 2024 12:15
--- NOTE | 2024-06-16 14:42 | P.PN ---
Subjective Progress Note Date: 06/16/24 Reason for Consult (text): Bradycardia History of present illness: This is an 89-year-old male patient of Dr. Clark with past medical history of coronary artery disease, cardiomyopathy, hypertension, dyslipidemia, chronic systolic heart failure, chronic kidney disease stage III. We have been asked to evaluate the patient for bradycardia. Patient and state that he has had ongoing difficulty with shortness of breath either at rest or with activity since December of this year. Patient states that he becomes quite short of breath to the point where he could not eat this morning and his heart rate has been found at home to be in the 30s. He states that EMS took his heart rate when he got into the ambulance. He also states he has some left ankle edema. Patient has had 4 hospitalizations since December. He states when he leaves the hospital he is feeling better for about a week. He denies having any palpitations or heart racing no dizziness. He is noted to have significant amount of bigeminy on telemetry. He feels good at rest right now and feels the oxygen may have helped. He has received 2 doses of IV Lasix 40 mg. Blood pressure 114/56, heart rate 4362, pulse ox 97% on 2 L nasal cannula. Patient has been started on IV Lasix 40 mg every 12 hours. Patient was last seen in the office with Dr. Clark on 05/27/2024 and at that time multiple medication changes were made including discontinuing amiodarone, discontinuing Farxiga, discontinuing Lasix, discontinuing Jardiance, Lipitor was changed to 80 mg daily and losartan was changed to 100 mg daily. Patient was also to be scheduled for loop recorder and blood work before his next visit. During patient's last hospitalization, he had elevated troponins due to worsening renal function, also had episode of NSVT and started on amiodarone at that time. Dr. Cole discussed treatment options with the patient and his in detail. He will further discuss the case with Dr. Clark. -EKG: Sinus rhythm with frequent PVCs, IVCD at 70 bpm -Chest x-ray: Right lower lobe infiltrate with small right pleural effusion. Correlate for pneumonia. -Laboratory studies: WBC 9.2, hemoglobin 13.2. BUN 32, creatinine 1.95, potassium 4.4. Troponin negative x 1. proBNP 29,800. TSH elevated at 6.15 with normal free T41.62. -Home cardiac medications: Amiodarone 200 mg daily, aspirin 81 mg daily, atorvastatin 80 mg daily, Plavix 75 mg daily, Farxiga 10 mg daily, Lasix 40 mg twice daily, Imdur 30 mg daily, losartan 25 mg daily, Toprol-XL 25 mg daily according to hospital record. -Cardiac catheterization performed 02/19/2024 revealed 30% proximal LAD, 99% mid LAD, 99% proximal OM1, 90% proximal RCA, 80% mid RCA, 80% distal RCA, right dominant, severely calcified coronaries. -Echocardiogram performed 05/06/2024 revealed EF of 20%, moderate to severe MR, mild to moderate AR, RVSP estimated 67 mmHg. -Lexiscan Cardiolite stress test performed 03/04/2024 revealed EF of 27% with large fixed inferior defect. 06/16/24 Patient seen and examined. Dr. Clark has spoken with patient in detail regarding options for treatment, risks and benefits. These were also discussed by Dr. Cole with the patient and his . Reviewed echocardiogram results as well with the patient and his . Blood pressure 115/69, heart rate 69, pulse ox 97% on 2 L nasal cannula. Repeat blood work reveals hemoglobin 12.8. BUN 34 and creatinine 2.01. Patient is noted to have worsening renal function and discussed the need to postpone cardiac catheterization/stent until kidney function is improved. They are agreeable to be seen by nephrology for evaluation prior to cath/PCI. Echocardiogram revealed EF 20 to 25%. Severe pulmonary hypertension with RVSP 61 mmHg, moderate mitral regurgitation, mild aortic regurgitation, mild aortic stenosis, severe tricuspid regurgitation. 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 Could not rule out possibility of LV thrombus. Physical examination: Gen: This is an 89-year-old male in no acute distress VS: reviewed HEENT: Head is atraumatic, normocephalic. Pupils equal, round. Sclerae is anicteric. NECK: Supple. No JVD. LUNGS: Clear to auscultation. No wheezes or rhonchi. No intercostal retractions. HEART: Irregular rate and rhythm. Systolic murmur. ABDOMEN: Soft No tenderness. EXTREMITIES: No pedal edema. No calf tenderness. NEUROLOGICAL: Patient is awake, alert and oriented x3. Assessment: Bradycardia possibly due to inaccurate counting of heartbeats due to bigeminy Acute on chronic systolic heart failure Bigeminy and recent episode of NSVT on last hospitalization Coronary artery disease Ischemic cardiomyopathy Valvular heart disease with moderate to severe MR and mild to moderate aortic regurgitation Severe pulmonary hypertension Hypertension Hyperlipidemia Plan: Continue cardiac medications: Aspirin 81 mg daily, atorvastatin 80 mg daily, Plavix 75 mg daily, Farxiga 10 mg daily, Imdur 30 mg daily, losartan 25 mg daily Hold amiodarone and AV naveen medications Continue telemetry monitoring Continue IV Lasix 40 mg every 12 hours Monitor CAM, daily weights, electrolytes and renal function Discussed option to try stenting but will need to wait until kidney function is improved. Patient and are agreeable to have evaluation done by nephrology. Further recommendations to follow based upon clinical course Nurse practitioner note has been reviewed, I agree with documented findings and plan of care. Patient was seen and examined. Objective - Vital Signs Vital signs: Vital Signs Temp 97.6 F 06/16/24 08:00 Pulse 69 06/16/24 11:22 Resp 18 06/16/24 11:22 BP 115/69 06/16/24 11:22 Pulse Ox 97 06/16/24 11:22 FiO2 Intake & Output 06/15/24 06/16/24 06/16/24 18:59 06:59 18:59 Intake Total 480 440 Output Total 450 825 225 Balance 30 -825 215 Weight 90.2 kg Intake: Oral 480 440 Output: Urine 450 825 225 Other: Voiding Method Urinal Urinal Urinal # Voids 1 1 - Labs CBC & Chem 7: 06/16/24 08:29 06/16/24 08:29 Labs: Abnormal Lab Results - Last 24 Hours (Table) 06/16/24 06/16/24 Range/Units 08:29 08:29 RBC 4.05 L (4.30-5.90) m/uL Hgb 12.8 L (13.0-17.5) gm/dL BUN 34 H (9-20) mg/dL Creatinine 2.01 H (0.66-1.25) mg/dL Glucose 110 H (74-99) mg/dL
[2024-06-17 06:47] LABS: HCT 39.3 % (39.0-53.0); HGB 13.1 gm/dL (13.0-17.5); MCHC 33.4 g/dL (31.0-37.0); MCV 95.9 fL (80.0-100.0); Mean Platelet Volume 9.7; Platelet Count 157 k/uL (150-450); RDW 14.4 % (11.5-15.5); WBC 6.5 k/uL (3.8-10.6)
[2024-06-17 07:11] LABS: African American GFR (CKD) 35 (>60 ml/min/1.73 sqM); Anion Gap 7 mmol/L; Blood Urea Nitrogen 33 mg/dL (9-20); Calcium 9.1 mg/dL (8.4-10.2); Carbon Dioxide 27 mmol/L (22-30); Chloride 102 mmol/L (98-107); Glucose 93 mg/dL (74-99); Magnesium 2.2 mg/dL (1.6-2.3); Non-African American GFR(CKD) 30 (>60 ml/min/1.73 sqM); Potassium 3.9 mmol/L (3.5-5.1); Sodium 136 mmol/L (137-145)
[2024-06-17] MEDS: CHOLECALCIFEROL 25 MCG (1000 IU) TABLET PO SCH (07:43)
[2024-06-17] MEDS: ASCORBIC ACID 500 MG TAB PO SCH (07:43)
[2024-06-17] MEDS ORDERED: ALPRAZolam 0.5 MG TAB PO PRN (07:56)
[2024-06-17] MEDS ORDERED: ALPRAZolam 0.25 MG TAB PO PRN (07:56)
[2024-06-17] MEDS ORDERED: NITROGLYCERIN SL TABS 0.4 MG TAB SUBLINGUAL PRN (07:56)
--- NOTE | 2024-06-17 07:59 | P.PN ---
Progress Note - Text Progress Note Date: 06/17/24 The patient had multiple admission to the hospital with recurrent CHF. He has a known history of severe cardiomyopathy as well as severe triple-vessel disease. He has a history of chronic kidney disease. In view of his recurrent presentation and his known history I discussed with him the options of PCI, starting with left circumflex PCI to see if there is any further improvement in his symptoms or systolic function. I explained to him and to his that there is no guarantee that we will see significant improvement and there is a risk of worsening renal functions. They are in full understanding and agreement. He will be scheduled to undergo the procedure on June 18.
--- NOTE | 2024-06-17 10:29 | P.NPCON ---
History of Present Illness - Reason for Consult acute renal failure, chronic renal failure - History of Present Illness Reason for consultation: Acute kidney injury on chronic kidney disease History of present illness: Patient is a 89-year-old male seen in renal consultation for acute kidney injury on chronic kidney disease. Patient has chronic kidney disease stage IIIb with baseline creatinine 1.5-1.7 secondary to cardiorenal syndrome. Patient came to the hospital due to worsening shortness of breath. He was also noted to be bradycardic. He is being followed by cardiology. Patient does have history of multivessel disease. Cardiac catheterization is being considered. He is currently on IV Lasix as well as Farxiga. Patient has systolic CHF ejection fraction of 20 to 25% with severe tricuspid regurgitation and pulmonary hypertension. Also has mild to moderate mitral regurgitation. Ultrasound from December 2023 showed no evidence of hydronephrosis. He admits to good urine output. No gross hematuria or dysuria. Denies chest pain or shortness of breath at this time. Denies use of nonsteroidals. Denies family history of renal disease. Does not follow with nephrology outpatient. Vital signs are stable. General: No acute distress. HEENT: Head exam is unremarkable. LUNGS: No audible rhonchi or wheezes. HEART: Rate and Rhythm are regular. ABDOMEN: Nontender. EXTREMITITES: No edema. Past Medical History Past Medical History: Heart Failure, CVA/TIA, Hyperlipidemia, Hypertension Additional Past Medical History / Comment(s): recent adm. to [facility] for SOB, CHF, SOB w/exertion much improved per pt., some swelling lower extremities, stroke 2018-no residual effects, rheumatic fever @age of 14 History of Any Multi-Drug Resistant Organisms: None Reported Past Surgical History: Back Surgery, Joint Replacement Additional Past Surgical History / Comment(s): thu knee replacements, masoud in neck from surg., right ear surg.years ago for ruptured eardrum Past Anesthesia/Blood Transfusion Reactions: No Reported Reaction Past Psychological History: No Psychological Hx Reported Smoking Status: Former smoker Past Alcohol Use History: None Reported Additional Past Alcohol Use History / Comment(s): quit smoking 1980, smoked 26 yrs., 1ppd Past Drug Use History: None Reported - Past Family History Mother Family Medical History: Hyperlipidemia Medications and Allergies Home Medications Medication Instructions Recorded Confirmed Type Febuxostat [Uloric] 40 mg PO DAILY 01/15/24 06/14/24 History Aspirin 81 mg PO DAILY #30 tab 01/18/24 06/14/24 Rx Dapagliflozin Propanediol [Farxiga] 10 mg PO DAILY #30 tab 01/18/24 06/14/24 Rx Ascorbic Acid [Vitamin C] 500 mg PO DAILY 05/06/24 06/14/24 History Cholecalciferol [Vitamin D3 (25 25 mcg PO DAILY 05/06/24 06/14/24 History Mcg = 1000 Iu)] Amiodarone [Cordarone] 200 mg PO DAILY #60 tab 05/08/24 06/14/24 Rx Atorvastatin [Lipitor] 80 mg PO DAILY #60 tab 05/08/24 06/14/24 Rx Isosorbide Mononitrate ER [Imdur] 30 mg PO DAILY #60 tab 05/08/24 06/14/24 Rx Losartan [Cozaar] 25 mg PO DAILY #60 tab 05/08/24 06/14/24 Rx Metoprolol Succinate (ER) [Toprol 25 mg PO DAILY #60 tab 05/08/24 06/14/24 Rx XL] Clopidogrel [Plavix] 75 mg PO DAILY 30 Days #30 tab 05/19/24 06/14/24 Rx Furosemide [Lasix] 40 mg PO BID@0900,1600 30 Days #60 05/19/24 06/14/24 Rx tab Allergies Allergy/AdvReac Type Severity Reaction Status Date / Time No Known Allergies Allergy Verified 06/14/24 12:21 Physical Exam Vitals: Vital Signs Temp Pulse Pulse Pulse Pulse Pulse Resp 06/17/24 08:00 97.8 F 69 20 06/17/24 03:55 97.6 F 71 19 06/16/24 23:05 97.6 F 70 18 06/16/24 19:39 97.7 F 66 19 06/16/24 16:00 97.7 F 70 18 06/16/24 11:22 69 18 06/16/24 10:29 69 75 76 80 BP Pulse Ox Pulse Ox Pulse Ox Pulse Ox Pulse Ox 06/17/24 08:00 107/55 94 L 06/17/24 03:55 110/63 96 06/16/24 23:05 111/67 96 06/16/24 19:39 129/61 98 06/16/24 16:00 111/63 99 06/16/24 11:22 115/69 97 06/16/24 10:29 98 98 92 L 91 L Intake and Output 06/16/24 06/17/24 06/17/24 22:59 06:59 14:59 Intake Total 700 10 390 Output Total 200 1150 150 Balance 500 -1140 240 Intake: IV 10 10 Invasive Line 1 10 10 Oral 690 390 Output: Urine 200 1150 150 Other: Voiding Method Urinal Urinal Urinal # Voids 1 Weight 90 kg Results - Lab Results Most recent lab results Calcium 9.1 mg/dL (8.4-10.2) 06/17/24 06:26 Magnesium 2.2 mg/dL (1.6-2.3) 06/17/24 06:26 06/17/24 06:26 06/17/24 06:26 Assessment and Plan Plan: Assessment: 1. Acute kidney injury secondary to ATN secondary to cardiorenal syndrome. Renal function fairly stable with creatinine 1.96 today. Kidney ultrasound from December 2023 showed no evidence of hydronephrosis. 2. Chronic kidney disease stage IIIb with baseline creatinine 1.5-1.7 secondary to cardiorenal syndrome. 3. Coronary artery disease. 4. Acute on chronic systolic CHF ejection fraction of 20 to 25% with severe tricuspid agitation, mild to moderate mitral vegetation and severe pulmonary hypertension. 5. Volume overload. Improved with diuresis. Plan: Maintain IV Lasix for now. Maintain Farxiga. Discussed at length with patient and his risk of worsening renal failure, potentially requiring renal replacement therapy, post IV contrast exposure. They understand. Plan for cardiac catheterization tomorrow. Hold IV Lasix tonight and tomorrow morning before the cardiac catheterization. Continue to monitor renal function and urine output. Avoid nephrotoxins. Check UA. Thank you for the consultation. I will continue to follow the patient with you during his hospital stay.
[2024-06-17 11:33] LABS: Appearance,Urine Clear (Clear); Bilirubin,Urine Negative (Negative); Blood,Urine Negative (Negative); Color,Urine Colorless; Glucose,Urine (UA) 3+ (Negative); Ketones,Urine Negative (Negative); Leukocyte Esterase,Urine Large (Negative); Nitrite,Urine Negative (Negative); Protein,Urine Negative (Negative); RBC,Urine 1 /hpf (0-5); Squamous Epithelial Cell,Urine 1 /hpf (0-4); Urobilinogen,Urine <2.0 mg/dL (<2.0); WBC,Urine 11 /hpf (0-5)
--- NOTE | 2024-06-17 11:41 | P.PN ---
Subjective Progress Note Date: 06/17/24 Hospital course: Patient is a very pleasant 89-year-old male with a past medical history of hypertension, systolic CHF, CAD, Mod-severe MR, Mild-Mod AR, hyperlipidemia, CVA with no residual effect, and stage IIIb CKD. He presented to the ER on 06/14/24 with a chief complaint of shortness of breath on exertion and bradycardia with reported heart rate in the 30s at home. Upon arrival to our facility, patient underwent evaluation in the emergency department. On arrival vitals signs show blood pressure 123/67, heart rate 67, respiratory rate 22, temp 98.4 F, and SpO2 of 94% on room air. EKG was completed showing sinus mechanism with frequent PVCs at 70 bpm. X-ray completed showing right lower lobe infiltrate with small right pleural effusion. CBC unremarkable. Coagulation profile normal findings. BMP consistent with stage IIIb CKD with BUN of 30, creatinine of 1.76, GFR of 34 with baseline creatinine around 1.6. Blood glucose 140. Magnesium 2.2. Liver profile showing hyperbilirubinemia with total bili of 1.9. Troponin was 0.028 and proBNP was 29,800. TSH 6.150 and free T4 of 1.62. Patient has been noted to have bigeminy on telemetry monitoring. Patient admitted under our services with consultation to cardiology. Physical exam: Patient seen and fully evaluated at bedside. also at bedside. Patient reports feeling relieved to undergo cardiac cath tomorrow morning. He is reports they are hoping his shortness of breath and exertional dyspnea will improve after stent placement. Currently patient reports his breathing is "good" at rest and he denies having any chest pain, palpitations, or any other complaints at this time. Vital signs reviewed and stable. General: Nontoxic, no distress and appears stated age. Derm: Skin warm and dry, normal coloration for ethnicity. Head: Atraumatic, normocephalic and symmetric. Eyes: EOM's intact, no lid lag, and anicteric sclera Mouth: no lip lesions, mucus membranes moist Cardiovascular: regular rate and rhythm with normal S1S2, systolic murmur, positive posterior tibial pulses bilaterally, and cap refill < 2 seconds. Lungs: Respirations even, regular, and unlabored on 2 L O2. Lungs diminished with bibasilar crackles worse on right. Abdominal: soft, nontender to palpation, no guarding, no appreciable organomegaly Ext: ROM intact. No gross muscle atrophy, scant pedal edema, no contractures Neuro: Speech clear, face symmetrical and CN II-XII grossly intact with no noted focal neuro deficits Psych: Alert and oriented to person, place, time, and situation. Appropriate and pleasant affect. Assessment and Plan of Care: Acute on chronic systolic CHF exacerbation, EF 20-25%: CAD Moderate to severe mitral regurgitation Mild aortic regurgitation -Cardiology following, discussed case with cardiac PROFESSOR OF MANAGEMENT patient to undergo cardiac cath with stent placement tomorrow morning for known triple-vessel CAD -Telemetry monitoring -Daily weights and strict monitoring of I's and O's -Cardiac diet, NPO at midnight -Lasix: 40 mg IVP twice daily -Continue daily medication regimen with aspirin 81 mg daily, Lipitor 80 mg daily, Plavix 75 mg daily, Farxiga 10 mg daily, Imdur 30 mg daily, and Losartan 25 mg daily. -Continued close monitoring of electrolytes while diuresing. Symptomatic bradycardia: -Hold Amiodarone and Metoprolol until further recommendations from cardiology. -Telemetry monitoring -Cardiology following MINDY on CKD stage IIIb: Monitor electrolytes and renal function while on Lasix. Currently renal function stable with BUN of 33, creatinine of 1.96, GFR of 30 with baseline creatinine of 1.6. Hypertension: Continue daily medication regimen with losartan 25 mg daily. Metoprolol and amiodarone was held secondary to symptomatic bradycardia. Hyperlipidemia: Continue daily medication regimen with Lipitor 80 mg daily. History of CVA: Continue daily medication regimen with aspirin 81 mg daily, Plavix 75 mg daily, and Lipitor 80 mg daily. Data and imaging reviewed: Vital signs reviewed. Blood pressure 107/55, heart rate 69, respiratory rate 20, temp 97.8 F, and SpO2 of 94% on 2 L. Morning labs reviewed. CBC unremarkable with hemoglobin of 13.1, WBC count of 6.5, platelet count of 157,000. BMP showing elevated but stable renal function with BUN of 33, creatinine 1.96, GFR of 30. CODE STATUS: FULL CODE DVT Prophylaxis: Heparin SQ Anticipated discharge date: Pending clinical course Anticipated discharge place: Pending clinical course Patient was seen independently by Nurse Pracitioner. This document was prepared using [employer] dictation software. Please allow for errors in armature winder helper repair, while rare they do occur. Shashi Yoon NP rendered care for this patient independently, reviewed the findings and plan as documented in the note above and agree with plan. I did not physically speak with or examine the patient on this date. . Objective - Vital Signs Vital signs: Vital Signs Temp 97.6 F 06/17/24 03:55 Pulse 71 06/17/24 03:55 Resp 19 06/17/24 03:55 BP 110/63 06/17/24 03:55 Pulse Ox 96 06/17/24 03:55 FiO2 Intake & Output 06/16/24 06/17/24 06/17/24 18:59 06:59 18:59 Intake Total 1310 20 Output Total 825 1150 Balance 485 -1130 Weight 90 kg Intake: IV 20 Invasive Line 1 20 Oral 1310 Output: Urine 825 1150 Other: Voiding Method Urinal Urinal # Voids 1 - Labs CBC & Chem 7: 06/17/24 06:26 06/17/24 06:26 Labs: Abnormal Lab Results - Last 24 Hours (Table) 06/16/24 06/16/24 06/17/24 Range/Units 08:29 08:29 06:26 RBC 4.05 L (4.30-5.90) m/uL Hgb 12.8 L (13.0-17.5) gm/dL Sodium 136 L (137-145) mmol/L BUN 34 H 33 H (9-20) mg/dL Creatinine 2.01 H 1.96 H (0.66-1.25) mg/dL Glucose 110 H (74-99) mg/dL 06/17/24 Range/Units 06:26 RBC 4.10 L (4.30-5.90) m/uL Hgb (13.0-17.5) gm/dL Sodium (137-145) mmol/L BUN (9-20) mg/dL Creatinine (0.66-1.25) mg/dL Glucose (74-99) mg/dL
--- NOTE | 2024-06-17 12:46 | P.PN ---
Subjective Progress Note Date: 06/17/24 Reason for Consult (text): Bradycardia History of present illness: This is an 89-year-old male patient of Dr. Clark with past medical history of coronary artery disease, cardiomyopathy, hypertension, dyslipidemia, chronic systolic heart failure, chronic kidney disease stage III. We have been asked to evaluate the patient for bradycardia. Patient and state that he has had ongoing difficulty with shortness of breath either at rest or with activity since December of this year. Patient states that he becomes quite short of breath to the point where he could not eat this morning and his heart rate has been found at home to be in the 30s. He states that EMS took his heart rate when he got into the ambulance. He also states he has some left ankle edema. Patient has had 4 hospitalizations since December. He states when he leaves the hospital he is feeling better for about a week. He denies having any palpitations or heart racing no dizziness. He is noted to have significant amount of bigeminy on telemetry. He feels good at rest right now and feels the oxygen may have helped. He has received 2 doses of IV Lasix 40 mg. Blood pressure 114/56, heart rate 4362, pulse ox 97% on 2 L nasal cannula. Patient has been started on IV Lasix 40 mg every 12 hours. Patient was last seen in the office with Dr. Clark on 05/27/2024 and at that time multiple medication changes were made including discontinuing amiodarone, discontinuing Farxiga, discontinuing Lasix, discontinuing Jardiance, Lipitor was changed to 80 mg daily and losartan was changed to 100 mg daily. Patient was also to be scheduled for loop recorder and blood work before his next visit. During patient's last hospitalization, he had elevated troponins due to worsening renal function, also had episode of NSVT and started on amiodarone at that time. Dr. Cole discussed treatment options with the patient and his in detail. He will further discuss the case with Dr. Clark. -EKG: Sinus rhythm with frequent PVCs, IVCD at 70 bpm -Chest x-ray: Right lower lobe infiltrate with small right pleural effusion. Correlate for pneumonia. -Laboratory studies: WBC 9.2, hemoglobin 13.2. BUN 32, creatinine 1.95, potassium 4.4. Troponin negative x 1. proBNP 29,800. TSH elevated at 6.15 with normal free T41.62. -Home cardiac medications: Amiodarone 200 mg daily, aspirin 81 mg daily, atorvastatin 80 mg daily, Plavix 75 mg daily, Farxiga 10 mg daily, Lasix 40 mg twice daily, Imdur 30 mg daily, losartan 25 mg daily, Toprol-XL 25 mg daily according to hospital record. -Cardiac catheterization performed 02/19/2024 revealed 30% proximal LAD, 99% mid LAD, 99% proximal OM1, 90% proximal RCA, 80% mid RCA, 80% distal RCA, right dominant, severely calcified coronaries. -Echocardiogram performed 05/06/2024 revealed EF of 20%, moderate to severe MR, mild to moderate AR, RVSP estimated 67 mmHg. -Lexiscan Cardiolite stress test performed 03/04/2024 revealed EF of 27% with large fixed inferior defect. 06/16/24 Patient seen and examined. Dr. Clark has spoken with patient in detail regarding options for treatment, risks and benefits. These were also discussed by Dr. Cole with the patient and his . Reviewed echocardiogram results as well with the patient and his . Blood pressure 115/69, heart rate 69, pulse ox 97% on 2 L nasal cannula. Repeat blood work reveals hemoglobin 12.8. BUN 34 and creatinine 2.01. Patient is noted to have worsening renal function and discussed the need to postpone cardiac catheterization/stent until kidney function is improved. They are agreeable to be seen by nephrology for evaluation prior to cath/PCI. Echocardiogram revealed EF 20 to 25%. Severe pulmonary hypertension with RVSP 61 mmHg, moderate mitral regurgitation, mild aortic regurgitation, mild aortic stenosis, severe tricuspid regurgitation. 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 Could not rule out possibility of LV thrombus. 06/17/24 Patient seen and examined. Patient states he has not had any chest pain or chest pressure this morning no shortness of breath. He is off oxygen. He states he has been up for showers well. He has been seen by nephrology and plan is for PCI tomorrow with Dr. Clark. Lasix is to be held this evening and tomorrow morning. BUN 33 creatinine 1.96, potassium 3.9. Physical examination: Gen: This is an 89-year-old male in no acute distress VS: reviewed HEENT: Head is atraumatic, normocephalic. Pupils equal, round. Sclerae is anicteric. NECK: Supple. No JVD. LUNGS: Clear to auscultation. No wheezes or rhonchi. No intercostal retractions. HEART: Irregular rate and rhythm. Systolic murmur. ABDOMEN: Soft No tenderness. EXTREMITIES: No pedal edema. No calf tenderness. NEUROLOGICAL: Patient is awake, alert and oriented x3. Assessment: Bradycardia possibly due to inaccurate counting of heartbeats due to bigeminy Acute on chronic systolic heart failure Bigeminy and recent episode of NSVT on last hospitalization Coronary artery disease Ischemic cardiomyopathy Valvular heart disease with moderate to severe MR and mild to moderate aortic regurgitation Severe pulmonary hypertension Hypertension Hyperlipidemia Plan: Continue cardiac medications: Aspirin 81 mg daily, atorvastatin 80 mg daily, Plavix 75 mg daily, Farxiga 10 mg daily, Imdur 30 mg daily, losartan 25 mg daily Hold amiodarone and AV naveen medications Continue telemetry monitoring Patient to receive a 250 cc IV fluid bolus at 11 AM 1 hour prior to PCI Schedule patient for PCI tomorrow with Dr. Clark at noon Continue IV Lasix 40 mg every 12 hours (hold dose for this evening and tomorrow morning) Monitor CAM, daily weights, electrolytes and renal function Further recommendations to follow based upon clinical course Nurse practitioner note has been reviewed, I agree with documented findings and plan of care. Patient was seen and examined. Objective - Vital Signs Vital signs: Vital Signs Temp 97.8 F 06/17/24 08:00 Pulse 71 06/17/24 11:28 Resp 18 06/17/24 11:28 BP 112/60 06/17/24 11:28 Pulse Ox 95 06/17/24 11:28 FiO2 Intake & Output 06/16/24 06/17/24 06/17/24 18:59 06:59 18:59 Intake Total 1310 20 390 Output Total 825 1150 250 Balance 485 -1130 140 Weight 90 kg Intake: IV 20 Invasive Line 1 20 Oral 1310 390 Output: Urine 825 1150 250 Other: Voiding Method Urinal Urinal Urinal # Voids 1 - Labs CBC & Chem 7: 06/17/24 06:26 06/17/24 06:26 Labs: Abnormal Lab Results - Last 24 Hours (Table) 11/20/24 11/20/24 11/20/24 Range/Units 06:26 06:26 11:15 RBC 4.10 L (4.30-5.90) m/uL Sodium 136 L (137-145) mmol/L BUN 33 H (9-20) mg/dL Creatinine 1.96 H (0.66-1.25) mg/dL Urine Glucose (UA) 3+ H (Negative) Ur Leukocyte Esterase Large H (Negative) Urine WBC 11 H (0-5) /hpf
[2024-06-17] MEDS: FLUTICASONE NASAL 50MCG/SPRAY 16GM BTL EA NOSTRIL SCH (13:16)
[2024-06-18] MEDS: ASPIRIN 325 MG TAB PO ONE (05:35)
[2024-06-18] MEDS: ATORVASTATIN 80 MG TAB PO ONE (05:35)
[2024-06-18 06:09] LABS: Glucose,Whole Blood 145 mg/dL (70-110)
[2024-06-18 07:34] LABS: African American GFR (CKD) 38 (>60 ml/min/1.73 sqM); Anion Gap 14 mmol/L; Blood Urea Nitrogen 32 mg/dL (9-20); Carbon Dioxide 22 mmol/L (22-30); Chloride 101 mmol/L (98-107); Glucose 122 mg/dL (74-99); Magnesium 2.1 mg/dL (1.6-2.3); Non-African American GFR(CKD) 33 (>60 ml/min/1.73 sqM); Potassium 3.6 mmol/L (3.5-5.1); Sodium 137 mmol/L (137-145)
[2024-06-18] MEDS: SODIUM CHLORIDE 0.9% 500 ML 250 ML IV ONE (11:09)
--- NOTE | 2024-06-18 11:20 | P.PN ---
Subjective Patient is seen in follow-up for acute kidney injury on chronic kidney disease. Renal function stable. Denies chest pain or shortness of breath. Scheduled for cardiac catheterization today. Vital signs are stable. General: No acute distress. HEENT: Head exam is unremarkable. LUNGS: No audible rhonchi or wheezes. HEART: Rate and Rhythm are regular. Cut the ABDOMEN: Nontender. EXTREMITITES: No edema. Objective - Vital Signs Vital signs: Vital Signs Temp 97.6 F 06/18/24 10:48 Pulse 72 06/18/24 10:48 Resp 18 06/18/24 10:48 BP 96/59 06/18/24 10:48 Pulse Ox 94 L 06/18/24 10:48 FiO2 Intake & Output 06/17/24 06/18/24 06/18/24 18:59 06:59 18:59 Intake Total 1560 30 10 Output Total 450 600 200 Balance 1110 -570 -190 Weight 86.4 kg Intake: IV 30 10 Invasive Line 1 20 Invasive Line 2 10 10 Oral 1560 Output: Urine 450 600 200 Other: Voiding Method Urinal Urinal Urinal - Labs CBC & Chem 7: 06/17/24 06:26 06/18/24 06:14 Labs: Abnormal Lab Results - Last 24 Hours (Table) 06/17/24 06/18/24 06/18/24 Range/Units 11:15 06:08 06:14 BUN 32 H (9-20) mg/dL Creatinine 1.83 H (0.66-1.25) mg/dL Glucose 122 H (74-99) mg/dL POC Glucose (mg/dL) 145 H (70-110) mg/dL Urine Glucose (UA) 3+ H (Negative) Ur Leukocyte Esterase Large H (Negative) Urine WBC 11 H (0-5) /hpf Assessment and Plan Plan: Assessment: 1. Acute kidney injury secondary to ATN secondary to cardiorenal syndrome. Renal function fairly stable with creatinine 1.83 today. Kidney ultrasound from December 2023 showed no evidence of hydronephrosis. UA benign. 2. Chronic kidney disease stage IIIb with baseline creatinine 1.5-1.7 secondary to cardiorenal syndrome. 3. Coronary artery disease. 4. Acute on chronic systolic CHF ejection fraction of 20 to 25% with severe tricuspid agitation, mild to moderate mitral vegetation and severe pulmonary hypertension. 5. Volume overload. Improved with diuresis. Plan: Discussed at length with patient and his risk of worsening renal failure, potentially requiring renal replacement therapy, post IV contrast exposure. They understand. Plan for cardiac catheterization today. Lasix held last night and today. Scheduled to receive 250 cc bolus of normal saline prior to cath. Continue to monitor renal function and urine output. Avoid nephrotoxins. Monitor for contrast associated acute kidney injury.
--- NOTE | 2024-06-18 11:45 | P.PN ---
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 He presented to the ER on 06/14/24 with a chief complaint of shortness of breath on exertion and bradycardia with reported heart rate in the 30s at home. Upon arrival to our facility, patient underwent evaluation in the emergency department. On arrival vitals signs show blood pressure 123/67, heart rate 67, respiratory rate 22, temp 98.4 F, and SpO2 of 94% on room air. EKG was completed showing sinus mechanism with frequent PVCs at 70 bpm. X-ray completed showing right lower lobe infiltrate with small right pleural effusion. CBC unremarkable. Coagulation profile normal findings. BMP consistent with stage IIIb CKD with BUN of 30, creatinine of 1.76, GFR of 34 with baseline creatinine around 1.6. Blood glucose 140. Magnesium 2.2. Liver profile showing hyperbilirubinemia with total bili of 1.9. Troponin was 0.028 and proBNP was 29,800. TSH 6.150 and free T4 of 1.62. Patient has been noted to have bigeminy on telemetry monitoring. Patient admitted under our services with consultation to cardiology. Physical exam: Patient seen and fully evaluated at bedside was visiting with his and daughter at bedside while awaiting to be taken down for cardiac cath scheduled at 1130 this morning. He currently denies having any chest pain or shortness of breath at rest or any other complaints at this time. Vital signs reviewed and stable. General: Nontoxic, no distress and appears stated age. Derm: Skin warm and dry, normal coloration for ethnicity. Head: Atraumatic, normocephalic and symmetric. Eyes: EOM's intact, no lid lag, and anicteric sclera Mouth: no lip lesions, mucus membranes moist Cardiovascular: regular rate and rhythm with normal S1S2, systolic murmur, po sitive posterior tibial pulses bilaterally, and cap refill < 2 seconds. Lungs: Respirations even, regular, and unlabored on 2 L O2. Lungs diminished with bibasilar crackles worse on right. Abdominal: soft, nontender to palpation, no guarding, no appreciable organomegaly Ext: ROM intact. No gross muscle atrophy, scant pedal edema, no contractures Neuro: Speech clear, face symmetrical and CN II-XII grossly intact with no noted focal neuro deficits Psych: Alert and oriented to person, place, time, and situation. Appropriate and pleasant affect. Assessment and Plan of Care: Acute on chronic systolic CHF exacerbation, EF 20-25%: CAD Moderate to severe mitral regurgitation Mild aortic regurgitation -Cardiology following, taking patient for cardiac cath with stent placement later this morning. -Telemetry monitoring -Daily weights and strict monitoring of I's and O's -Lasix: 40 mg IVP twice daily -Continue daily medication regimen with aspirin 81 mg daily, Lipitor 80 mg daily, Plavix 75 mg daily, Farxiga 10 mg daily, Imdur 30 mg daily, and Losartan 25 mg daily. -Continued close monitoring of electrolytes while diuresing. Symptomatic bradycardia: -Hold Amiodarone and Metoprolol until further recommendations from cardiology. -Telemetry monitoring -Cardiology following MINDY on CKD stage IIIb: Monitor electrolytes and renal function while on Lasix. Currently renal function stable with BUN of 32, creatinine 1.83, and GFR of 33 with baseline creatinine of 1.6. Hypertension: Continue daily medication regimen with losartan 25 mg daily. Metoprolol and amiodarone was held secondary to symptomatic bradycardia. Hyperlipidemia: Continue daily medication regimen with Lipitor 80 mg daily. History of CVA: Continue daily medication regimen with aspirin 81 mg daily, Plavix 75 mg daily, and Lipitor 80 mg daily. Data and imaging reviewed: Vital signs reviewed. Blood pressure 107/58, heart rate 70, respiratory rate 18, temp 97.6 F, and SpO2 of 95% on room air. Morning labs reviewed. Currently renal function stable with BUN of 32, creatinine 1.83, GFR of 33. Blood glucose 122 this morning. Potassium 3.6 and magnesium 2.1. CODE STATUS: FULL CODE DVT Prophylaxis: Heparin SQ Anticipated discharge date: Pending clinical course Anticipated discharge place: Pending clinical course Patient was seen independently by Nurse Pracitioner. This document was prepared using [employer] dictation software. Please allow for errors in county agricultural agent, while rare they do occur. Shashi Yoon NP rendered care for this patient independently, reviewed the findings and plan as documented in the note above and agree with plan. I did not physically speak with or examine the patient on this date. . Objective - Vital Signs Vital signs: Vital Signs Temp 97.6 F 06/18/24 07:35 Pulse 72 06/18/24 07:35 Resp 19 06/18/24 07:35 BP 107/57 06/18/24 07:35 Pulse Ox 98 06/18/24 07:35 FiO2 Intake & Output 06/17/24 06/18/24 06/18/24 18:59 06:59 18:59 Intake Total 1560 30 Output Total 450 600 Balance 1110 -570 Weight 86.4 kg Intake: IV 30 Invasive Line 1 20 Invasive Line 2 10 Oral 1560 Output: Urine 450 600 Other: Voiding Method Urinal Urinal - Labs CBC & Chem 7: 06/17/24 06:26 06/18/24 06:14 Labs: Abnormal Lab Results - Last 24 Hours (Table) 06/17/24 06/18/24 06/18/24 Range/Units 11:15 06:08 06:14 BUN 32 H (9-20) mg/dL Creatinine 1.83 H (0.66-1.25) mg/dL Glucose 122 H (74-99) mg/dL POC Glucose (mg/dL) 145 H (70-110) mg/dL Urine Glucose (UA) 3+ H (Negative) Ur Leukocyte Esterase Large H (Negative) Urine WBC 11 H (0-5) /hpf
[2024-06-18] MEDS: SODIUM CHLORIDE 0.9% 1,000 ML IV ONE (12:07)
[2024-06-18] MEDS: HEPARIN SODIUM,PORCINE 10,000 UNIT in SODIUM CHLORIDE 0.9% 1,000 ML IRRIGATION PRN (12:08)
[2024-06-18] MEDS: HEPARIN SODIUM,PORCINE (1 ML) 2,500 UNIT in SODIUM CHLORIDE 0.9% 250 ML IRRIGATION PRN (12:08)
[2024-06-18] MEDS: fentaNYL (PF) 50 MCG/ML 2 ML AMP IVP ONE (12:15)
[2024-06-18] MEDS: LIDOCAINE 1% INJ 10MG/ML (20 ML MDV) SQ ONE (12:19)
[2024-06-18] MEDS: VERAPAMIL SYRINGE (5 MG/10 ML) INTRAARTER ONE (12:20)
[2024-06-18] MEDS: HEPARIN SODIUM 1,000 UN/ML (10ML VL) IV ONE (12:28)
[2024-06-18] MEDS: IOPAMIDOL-370 100ML BTL INJ ONE ×2 (13:25→13:37)
[2024-06-18] MEDS ORDERED: RX INFO: IV CONTRAST WAS GIVEN 1 EACH MISC MISCELLANE PRN (13:50)
[2024-06-18] MEDS ORDERED: ATROPINE SULFATE 0.1 MG/ML 10ML SYRINGE IV PRN (13:50)
[2024-06-18] MEDS ORDERED: NITROGLYCERIN SL TABS 0.4 MG TAB SUBLINGUAL PRN (13:50)
[2024-06-18] MEDS ORDERED: MAG HYDROX/AL HYDROX/SIMETH 30 ML CUP PO PRN (13:50)
[2024-06-18] MEDS ORDERED: ZOLPIDEM 5 MG TAB PO PRN (13:50)
--- NOTE | 2024-06-18 13:59 | P.CARDCATH ---
Date of Procedure: 06/18/24 Description of Procedure: PERCUTANEOUS TRANSLUMINAL CORONARY ANGIOPLASTY CLINICAL INFORMATION: The patient is an 89-year-old male with known history of hypertension, hyperlipidemia, chronic kidney disease and severe CAD by coronary angiography in January 2024 and severely impaired left ventricle systolic function that had multiple admission to the hospital with recurrent CHF and mild troponin elevation. Discussion with him and his family regarding the options, the patient was evaluated by the cardiovascular surgical team and felt not to be a candidate for CABG. PCI was discussed with the patient including the risk of requiring dialysis. He was in agreement to proceed. He was evaluated by the nephrology service. Recommendations were made regarding angioplasty and stenting. The procedure as well as the risks and the complications were discussed with the patient who was in full understanding and agreement. PROCEDURE: The patient was brought in the [employer] in the fasting semisedated state after receiving fentanyl and Benadryl, a 6 [place] sheath was introduced in the right radial artery. A 6 [place] CLS 3.5 guiding catheter was introduced into the system. After cannulating the left main, a 0.014 BMW J was advanced across the lesion and positioned distally. Attempt to advance a 2.5 x 12 mm [place] trek balloon were unsuccessful. Balloon was removed and a 6 [place] guide liner was introduced, following that a 1.0 x 10 mm sapphire balloon was advanced and inflated at 10 atmosphere. After removing the balloon a 2.0 x 12 mm trek balloon was advanced and multiple inflations at 10 cam[place] were done and subsequently the 2.5 x 12 mm NC trek balloon was advanced and inflations at 10 camille were done. After removing the balloon a [place] eye IVUS catheter was introduced and revealed severely calcified vessel with over 270 degree of continuous calcification and a distal vessel measuring 3.0 to 3.5 mm in diameter. After removing the IVUS catheter a 3.0 lithotripsy shockwave balloon was advanced and multiple treatment were done. Repeat IVUS imaging was performed that showed improvement in the calcifications. Subsequently a 3.0 x 10 mm score flex balloon was advanced and 2 inflations at maximum of 20 camille were done. Following that a 3.25 x 15 [place] stent was deployed. It was dilated at 16 camille. After the last inflation, after appropriate wait, the balloon was withdrawn back into the guiding catheter. Images were obtained and repeated. Those images reveal stable successful stenting. At that point, the guiding catheter, the balloon, and guidewire were removed. The sheath was removed. Hemostasis was obtained with deployment of a TR band. There were no immediate complications. The patient was returned to the room in stable condition. Of note, the patient received 7000 units of heparin as well as continued on Plavix. His ACT was followed. There was no immediate complications. He had no chest discomfort or EKG changes with the inflations. RESULTS: Successful stenting of the proximal left circumflex and a heavily calcified segment with reduction of stenosis from 99% to less than 5% with IVUS imaging and JEANNE-3 flow. RECOMMENDATIONS: The patient will continue on aspirin and clopidogrel for 1 year without any interruption in addition to aggressive coronary risks modifications, attempting to maintain LDL below 70 mg/dL, close follow-up of his renal functions will be done. The findings and recommendations were discussed with the patient and the family, they are in full understanding and agreement. Duration of sedation: 73 minutes
[2024-06-18] MEDS: SODIUM CHLORIDE 0.9% 1,000 ML in EMPTY BAG 1 BAG IV SCH (14:15)
[2024-06-19 04:07] VITALS: RESP 18
[2024-06-19] MEDS: FUROSEMIDE 40 MG TAB PO SCH (07:56)
[2024-06-19 08:08] LABS: HCT 38.4 % (39.0-53.0); HGB 12.7 gm/dL (13.0-17.5); MCH 31.7 pg (25.0-35.0); MCHC 33.2 g/dL (31.0-37.0); MCV 95.4 fL (80.0-100.0); Mean Platelet Volume 10.5; Platelet Count 169 k/uL (150-450); RBC 4.02 m/uL (4.30-5.90); RDW 14.6 % (11.5-15.5); WBC 6.8 k/uL (3.8-10.6)
[2024-06-19 08:27] LABS: African American GFR (CKD) 42 (>60 ml/min/1.73 sqM); Anion Gap 10 mmol/L; Blood Urea Nitrogen 27 mg/dL (9-20); Calcium 8.9 mg/dL (8.4-10.2); Carbon Dioxide 24 mmol/L (22-30); Chloride 103 mmol/L (98-107); Glucose 113 mg/dL (74-99); Magnesium 2.3 mg/dL (1.6-2.3); Non-African American GFR(CKD) 36 (>60 ml/min/1.73 sqM); Potassium 3.6 mmol/L (3.5-5.1); Sodium 137 mmol/L (137-145)
[2024-06-19 10:31] VITALS: BMI 27.1
--- NOTE | 2024-06-19 10:41 | P.PN ---
Subjective Patient is seen in follow-up for acute kidney injury on chronic kidney disease. Renal function better. Denies chest pain or shortness of breath. Underwent cardiac catheterization yesterday with stent placement to the circumflex. Vital signs are stable. General: No acute distress. HEENT: Head exam is unremarkable. LUNGS: No audible rhonchi or wheezes. HEART: Rate and Rhythm are regular. ABDOMEN: Nontender. EXTREMITITES: No edema. Objective - Vital Signs Vital signs: Vital Signs Temp 97.8 F 06/19/24 07:55 Pulse 77 06/19/24 08:00 Resp 18 06/19/24 08:00 BP 113/57 06/19/24 07:55 Pulse Ox 98 06/19/24 08:54 FiO2 Intake & Output 06/18/24 06/19/24 06/19/24 18:59 06:59 18:59 Intake Total 738 540 118 Output Total 500 Balance 238 540 118 Weight 91 kg 91 kg Intake: IV 620 Invasive Line 2 20 Oral 118 540 118 Output: Urine 500 Other: Voiding Method Urinal Urinal - Labs CBC & Chem 7: 06/19/24 07:57 06/19/24 07:57 Labs: Abnormal Lab Results - Last 24 Hours (Table) 06/19/24 06/19/24 Range/Units 07:57 07:57 RBC 4.02 L (4.30-5.90) m/uL Hgb 12.7 L (13.0-17.5) gm/dL Hct 38.4 L (39.0-53.0) % BUN 27 H (9-20) mg/dL Creatinine 1.67 H (0.66-1.25) mg/dL Glucose 113 H (74-99) mg/dL Assessment and Plan Plan: Assessment: 1. Acute kidney injury secondary to ATN secondary to cardiorenal syndrome. Renal function improved with creatinine 1.67 today. Kidney ultrasound from December 2023 showed no evidence of hydronephrosis. UA benign. 2. Chronic kidney disease stage IIIb with baseline creatinine 1.5-1.7 secondary to cardiorenal syndrome. 3. Coronary artery disease. Status post cardiac catheterization June 18, 2024 with stenting of the proximal left circumflex. 4. Acute on chronic systolic CHF ejection fraction of 20 to 25% with severe tricuspid agitation, mild to moderate mitral vegetation and severe pulmonary hypertension. 5. Volume overload. Improved with diuresis. Plan: Resume oral Lasix today. Maintain Farxiga. Add maintenance potassium supplementation. Avoid nephrotoxins. Monitor for contrast associated acute kidney injury. Repeat BMP and magnesium level 2 to 3 days postdischarge. Follow-up outpatient in 1 week.
[2024-06-19 11:32] VITALS: BP 98/56; PULSE 69; TEMP 97.5
--- NOTE | 2024-06-19 15:29 | P.PN ---
Subjective Progress Note Date: 06/19/24 Reason for Consult (text): Bradycardia History of present illness: This is an 89-year-old male patient of Dr. Clark with past medical history of coronary artery disease, cardiomyopathy, hypertension, dyslipidemia, chronic systolic heart failure, chronic kidney disease stage III. We have been asked to evaluate the patient for bradycardia. Patient and state that he has had ongoing difficulty with shortness of breath either at rest or with activity since December of this year. Patient states that he becomes quite short of breath to the point where he could not eat this morning and his heart rate has been found at home to be in the 30s. He states that EMS took his heart rate when he got into the ambulance. He also states he has some left ankle edema. Patient has had 4 hospitalizations since December. He states when he leaves the hospital he is feeling better for about a week. He denies having any palpitations or heart racing no dizziness. He is noted to have significant amount of bigeminy on telemetry. He feels good at rest right now and feels the oxygen may have helped. He has received 2 doses of IV Lasix 40 mg. Blood pressure 114/56, heart rate 4362, pulse ox 97% on 2 L nasal cannula. Patient has been started on IV Lasix 40 mg every 12 hours. Patient was last seen in the office with Dr. Clark on 05/27/2024 and at that time multiple medication changes were made including discontinuing amiodarone, discontinuing Farxiga, discontinuing Lasix, discontinuing Jardiance, Lipitor was changed to 80 mg daily and losartan was changed to 100 mg daily. Patient was also to be scheduled for loop recorder and blood work before his next visit. During patient's last hospitalization, he had elevated troponins due to worsening renal function, also had episode of NSVT and started on amiodarone at that time. Dr. Cole discussed treatment options with the patient and his in detail. He will further discuss the case with Dr. Clark. -EKG: Sinus rhythm with frequent PVCs, IVCD at 70 bpm -Chest x-ray: Right lower lobe infiltrate with small right pleural effusion. Correlate for pneumonia. -Laboratory studies: WBC 9.2, hemoglobin 13.2. BUN 32, creatinine 1.95, potassium 4.4. Troponin negative x 1. proBNP 29,800. TSH elevated at 6.15 with normal free T41.62. -Home cardiac medications: Amiodarone 200 mg daily, aspirin 81 mg daily, atorvastatin 80 mg daily, Plavix 75 mg daily, Farxiga 10 mg daily, Lasix 40 mg twice daily, Imdur 30 mg daily, losartan 25 mg daily, Toprol-XL 25 mg daily according to hospital record. -Cardiac catheterization performed 02/19/2024 revealed 30% proximal LAD, 99% mid LAD, 99% proximal OM1, 90% proximal RCA, 80% mid RCA, 80% distal RCA, right dominant, severely calcified coronaries. -Echocardiogram performed 05/06/2024 revealed EF of 20%, moderate to severe MR, mild to moderate AR, RVSP estimated 67 mmHg. -Lexiscan Cardiolite stress test performed 03/04/2024 revealed EF of 27% with large fixed inferior defect. 06/16/24 Patient seen and examined. Dr. Clark has spoken with patient in detail regarding options for treatment, risks and benefits. These were also discussed by Dr. Cole with the patient and his . Reviewed echocardiogram results as well with the patient and his . Blood pressure 115/69, heart rate 69, pulse ox 97% on 2 L nasal cannula. Repeat blood work reveals hemoglobin 12.8. BUN 34 and creatinine 2.01. Patient is noted to have worsening renal function and discussed the need to postpone cardiac catheterization/stent until kidney function is improved. They are agreeable to be seen by nephrology for evaluation prior to cath/PCI. Echocardiogram revealed EF 20 to 25%. Severe pulmonary hypertension with RVSP 61 mmHg, moderate mitral regurgitation, mild aortic regurgitation, mild aortic stenosis, severe tricuspid regurgitation. 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 Could not rule out possibility of LV thrombus. 06/17/24 Patient seen and examined. Patient states he has not had any chest pain or chest pressure this morning no shortness of breath. He is off oxygen. He states he has been up for showers well. He has been seen by nephrology and plan is for PCI tomorrow with Dr. Clark. Lasix is to be held this evening and tomorrow morning. BUN 33 creatinine 1.96, potassium 3.9. 06/19/24 Patient seen and examined. Yesterday, patient underwent PCI with Dr. Clark with successful stenting of the proximal left circumflex. Renal function is improved today. Repeat blood work reveals BUN 27 creatinine 1.67. Patient denies having any chest pain, no shortness of breath today. He states he has been up to a shower and has done well. Blood pressure 98/56, heart rate 69, pulse ox 94% on room air. Physical examination: Gen: This is an 89-year-old male in no acute distress VS: reviewed HEENT: Head is atraumatic, normocephalic. Pupils equal, round. Sclerae is anicteric. NECK: Supple. No JVD. LUNGS: Clear to auscultation. No wheezes or rhonchi. No intercostal retractions. HEART: Irregular rate and rhythm. Systolic murmur. ABDOMEN: Soft No tenderness. EXTREMITIES: No pedal edema. No calf tenderness. NEUROLOGICAL: Patient is awake, alert and oriented x3. Assessment: Bradycardia possibly due to inaccurate counting of heartbeats due to bigeminy Acute on chronic systolic heart failure Bigeminy and recent episode of NSVT on last hospitalization Coronary artery disease Ischemic cardiomyopathy Valvular heart disease with moderate to severe MR and mild to moderate aortic regurgitation Severe pulmonary hypertension Hypertension Hyperlipidemia Plan: Continue cardiac medications: Aspirin 81 mg daily, atorvastatin 80 mg daily, Plavix 75 mg daily, Farxiga 10 mg daily, Imdur 30 mg daily, losartan 25 mg daily Lasix 40 mg twice daily Patient is cleared for discharge from cardiology and may follow-up in the office with Dr. Clark in 1 week. Nurse practitioner note has been reviewed, I agree with documented findings and plan of care. Patient was seen and examined. Objective - Vital Signs Vital signs: Vital Signs Temp 97.5 F L 06/19/24 11:31 Pulse 69 06/19/24 11:59 Resp 18 06/19/24 11:59 BP 98/56 06/19/24 11:31 Pulse Ox 94 L 06/19/24 11:31 FiO2 Intake & Output 06/18/24 06/19/24 06/19/24 18:59 06:59 18:59 Intake Total 738 540 236 Output Total 500 Balance 238 540 236 Weight 91 kg 91 kg Intake: IV 620 Invasive Line 2 20 Oral 118 540 236 Output: Urine 500 Other: Voiding Method Urinal Urinal - Labs CBC & Chem 7: 06/19/24 07:57 06/19/24 07:57 Labs: Abnormal Lab Results - Last 24 Hours (Table) 06/19/24 06/19/24 Range/Units 07:57 07:57 RBC 4.02 L (4.30-5.90) m/uL Hgb 12.7 L (13.0-17.5) gm/dL Hct 38.4 L (39.0-53.0) % BUN 27 H (9-20) mg/dL Creatinine 1.67 H (0.66-1.25) mg/dL Glucose 113 H (74-99) mg/dL
--- NOTE | 2024-06-19 16:11 | P.PN ---
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 He presented to the ER on 06/14/24 with a chief complaint of shortness of breath on exertion and bradycardia with reported heart rate in the 30s at home. Upon arrival to our facility, patient underwent evaluation in the emergency department. On arrival vitals signs show blood pressure 123/67, heart rate 67, respiratory rate 22, temp 98.4 F, and SpO2 of 94% on room air. EKG was completed showing sinus mechanism with frequent PVCs at 70 bpm. X-ray completed showing right lower lobe infiltrate with small right pleural effusion. CBC unremarkable. Coagulation profile normal findings. BMP consistent with stage IIIb CKD with BUN of 30, creatinine of 1.76, GFR of 34 with baseline creatinine around 1.6. Blood glucose 140. Magnesium 2.2. Liver profile showing hyperbilirubinemia with total bili of 1.9. Troponin was 0.028 and proBNP was 29,800. TSH 6.150 and free T4 of 1.62. Patient has been noted to have bigeminy on telemetry monitoring. Patient admitted under our services with consultation to cardiology. Amiodarone and metoprolol was discontinued secondary to symptomatic bradycardia and recurrent runs of bigeminy on telemetry. Patient was evaluated by cardiology and taken for cardiac cath on 06/18/2024 resulting in successful stenting of the proximal left circumflex and a heavily calcified segment with reduction of stenosis from 99% to less than 5%. Physical exam: Patient seen and fully evaluated at bedside was visiting with his . Patient was sitting up in chair and reports feeling well this morning. He denies having any complaints. Awaiting cardiology clearance for discharge. Vital signs reviewed and stable. General: Nontoxic, no distress and appears stated age. Derm: Skin warm and dry, normal coloration for ethnicity. Head: Atraumatic, normocephalic and symmetric. Eyes: EOM's intact, no lid lag, and anicteric sclera Mouth: no lip lesions, mucus membranes moist Cardiovascular: regular rate and rhythm with normal S1S2, systolic murmur, positive posterior tibial pulses bilaterally, and cap refill < 2 seconds. Lungs: Respirations even, regular, and unlabored on 2 L O2. Lungs diminished with bibasilar crackles worse on right. Abdominal: soft, nontender to palpation, no guarding, no appreciable organomegaly Ext: ROM intact. No gross muscle atrophy, scant pedal edema, no contractures Neuro: Speech clear, face symmetrical and CN II-XII grossly intact with no noted focal neuro deficits Psych: Alert and oriented to person, place, time, and situation. Appropriate and pleasant affect. Assessment and Plan of Care: Acute on chronic systolic CHF exacerbation, EF 20-25%: CAD Moderate to severe mitral regurgitation Mild aortic regurgitation -Cardiology following, patient for cardiac cath on 06/18/2024 resulting in successful stenting of the proximal left circumflex. -Telemetry monitoring -Daily weights and strict monitoring of I's and O's -Lasix: 40 mg IVP twice daily -Continue daily medication regimen with aspirin 81 mg daily, Lipitor 80 mg daily, Plavix 75 mg daily, Farxiga 10 mg daily, Imdur 30 mg daily, and Losartan 25 mg daily. -Continued close monitoring of electrolytes while diuresing. Symptomatic bradycardia: -Hold Amiodarone and Metoprolol until further recommendations from cardiology. -Telemetry monitoring -Cardiology following MINDY on CKD stage IIIb: Monitor electrolytes and renal function while on Lasix. Currently renal function stable with BUN of 32, creatinine 1.83, and GFR of 33 with baseline creatinine of 1.6. Hypertension: Continue daily medication regimen with losartan 25 mg daily. Metoprolol and amiodarone was held secondary to symptomatic bradycardia. Hyperlipidemia: Continue daily medication regimen with Lipitor 80 mg daily. History of CVA: Continue daily medication regimen with aspirin 81 mg daily, Plavix 75 mg daily, and Lipitor 80 mg daily. Data and imaging reviewed: Vital signs reviewed. Blood pressure 113/57, heart rate 77, respiratory rate 18, temp 97.8 F, and SpO2 of 92% on room air. Morning labs reviewed. CBC showing stable normocytic anemia with hemoglobin of 12.7. BMP showing improvement in renal function with BUN of 27, creatinine of 1.67, GFR of 36. Blood glucose 113. Magnesium 2.3. CODE STATUS: FULL CODE DVT Prophylaxis: Heparin SQ Anticipated discharge date: Likely later today, awaiting cardiology clearance Anticipated discharge place: Pending clinical course Patient was seen independently by Nurse Pracitioner. This document was prepared using [employer] dictation software. Please allow for errors in power transmission engineer, while rare they do occur. Shashi Yoon NP rendered care for this patient independently, reviewed the findi ngs and plan as documented in the note above and agree with plan. I did not physically speak with or examine the patient on this date. . Objective - Vital Signs Vital signs: Vital Signs Temp 97.5 F L 06/19/24 07:22 Pulse 47 L 06/19/24 07:29 Resp 18 06/19/24 07:22 BP 113/64 06/19/24 07:22 Pulse Ox 95 06/19/24 07:22 FiO2 Intake & Output 06/18/24 06/19/24 06/19/24 18:59 06:59 18:59 Intake Total 738 540 Output Total 500 Balance 238 540 Weight 91 kg Intake: IV 620 Invasive Line 2 20 Oral 118 540 Output: Urine 500 Other: Voiding Method Urinal Urinal - Labs CBC & Chem 7: 06/19/24 07:57 06/19/24 07:57
--- NOTE | 2024-06-19 16:15 | P.DS ---
Providers Date of admission: 06/14/24 11:57 Expected date of discharge: 06/19/24 Attending physician: Bahman Perez Consults: 06/14/24 11:55 Consult Physician Urgent Consulting Provider: Keena Velazquez Consult Reason/Comments: Bradycardia Do you want consulting provider notified?: Yes 06/16/24 12:33 Consult Physician Routine Consulting Provider: Truong Monroe Reason/Comments: MINDY, looking at [facility] in near future Do you want consulting provider notified?: Yes 06/18/24 13:50 Consult Physician Routine Consulting Provider: Keena Velazquez Consult Reason/Comments: Post Interventional Patient Do you want consulting provider notified?: Already Contacted Primary care physician: [facility] Hospital Course: Discharge Diagnosis: Acute on chronic systolic CHF exacerbation, EF 20-25%: Patient underwent successful IV diuresis. He was evaluated by cardiology and taken for cardiac cath on 06/18/2024 resulting in successful stenting of the proximal left circumflex and a heavily calcified segment with reduction of stenosis from 99% to less than 5%. Patient cleared from cardiology perspective, recommending outpatient follow-up in their office in 1 week. Patient also medically optimized for discharge. Continue daily medication regimen with aspirin 81 mg daily, Lipitor 80 mg daily, Plavix 75 mg daily, Farxiga 10 mg daily, Imdur 30 mg daily, furosemide 40 mg twice daily, and Losartan 25 mg daily. CAD Moderate to severe mitral regurgitation Mild aortic regurgitation Symptomatic bradycardia: Amiodarone and Metoprolol discontinued. MINDY on CKD stage IIIb: Renal function stable upon discharge with BUN 27, creatinine 1.67, GFR of 36. Hypertension: Continue daily medication regimen with losartan 25 mg daily. Metoprolol and amiodarone was held secondary to symptomatic bradycardia. Hyperlipidemia: Continue daily medication regimen with Lipitor 80 mg daily. History of CVA: Continue daily medication regimen with aspirin 81 mg daily, Plavix 75 mg daily, and Lipitor 80 mg daily. 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 He presented to the ER on 06/14/24 with a chief complaint of shortness of breath on exertion and bradycardia with reported heart rate in the 30s at home. Upon arrival to our facility, patient underwent evaluation in the emergency department. On arrival vitals signs show blood pressure 123/67, heart rate 67, respiratory rate 22, temp 98.4 F, and SpO2 of 94% on room air. EKG was completed showing sinus mechanism with frequent PVCs at 70 bpm. X-ray completed showing right lower lobe infiltrate with small right pleural effusion. CBC unremarkable. Coagulation profile normal findings. BMP consistent with stage IIIb CKD with BUN of 30, creatinine of 1.76, GFR of 34 with baseline creatinine around 1.6. Blood glucose 140. Magnesium 2.2. Liver profile showing hyperbilirubinemia with total bili of 1.9. Troponin was 0.028 and proBNP was 29,800. TSH 6.150 and free T4 of 1.62. Patient has been noted to have bigeminy on telemetry monitoring. Patient admitted under our services with consultation to cardiology. Amiodarone and metoprolol was discontinued secondary to symptomatic bradycardia and recurrent runs of bigeminy on telemetry. Patient was evaluated by cardiology and taken for cardiac cath on 06/18/2024 resulting in successful stenting of the proximal left circumflex and a heavily calcified segment with reduction of stenosis from 99% to less than 5%. Patient cleared from cardiology perspective, recommending outpatient follow-up in their office in 1 week. Patient also medically optimized for discharge. Discussed with patient and patient's at bedside recommendations for home care including palliative care. Patient and family in agreement. This has been set up by social work with [place]. Patient discharged at this time and to follow-up with PCP in 1 to 2 days and with scalp treatment specialist in 1 week. Physical exam: Vital signs reviewed and stable. General: Nontoxic, no distress and appears stated age. Derm: Skin warm and dry, normal coloration for ethnicity. Head: Atraumatic, normocephalic and symmetric. Eyes: EOM's intact, no lid lag, and anicteric sclera Mouth: no lip lesions, mucus membranes moist Cardiovascular: regular rate and rhythm with normal S1S2, systolic murmur, positive posterior tibial pulses bilaterally, and cap refill < 2 seconds. Lungs: Respirations even, regular, and unlabored on 2 L O2. Lungs diminished with bibasilar crackles worse on right. Abdominal: soft, nontender to palpation, no guarding, no appreciable organomegaly Ext: ROM intact. No gross muscle atrophy, scant pedal edema, no contractures Neuro: Speech clear, face symmetrical and CN II-XII grossly intact with no noted focal neuro deficits Psych: Alert and oriented to person, place, time, and situation. Appropriate and pleasant affect. A total of 39 minutes of time were spent preparing this complex discharge summary. Pt was discharged on 06/19/2024 at 4:06 PM. Patient was seen independently by Nurse Practitioner. This document was prepared using [employer] dictation software. Please allow for errors in population health manager while rare they do occur. Shashi Yoon NP rendered care for this patient independently, reviewed the findings and plan as documented in the note above. I did not physically speak with or examine the patient on this date. Patient Condition at Discharge: Stable Plan - Discharge Summary Discharge Rx Participant: Yes New Discharge Prescriptions: New Potassium Chloride ER [K-Dur 20] 20 meq PO DAILY 30 Days #30 tab Continue Febuxostat [Uloric] 40 mg PO DAILY Dapagliflozin Propanediol [Farxiga] 10 mg PO DAILY #30 tab Cholecalciferol [Vitamin D3 (25 Mcg = 1000 Iu)] 25 mcg PO DAILY Ascorbic Acid [Vitamin C] 500 mg PO DAILY Atorvastatin [Lipitor] 80 mg PO DAILY #60 tab Clopidogrel [Plavix] 75 mg PO DAILY 30 Days #30 tab Aspirin 81 mg PO DAILY #30 tab Losartan [Cozaar] 25 mg PO DAILY #60 tab Isosorbide Mononitrate ER [Imdur] 30 mg PO DAILY #60 tab Furosemide [Lasix] 40 mg PO BID@0900,1600 30 Days #60 tab Discontinued Amiodarone [Cordarone] 200 mg PO DAILY #60 tab Metoprolol Succinate (ER) [Toprol XL] 25 mg PO DAILY #60 tab Discharge Medication List Febuxostat [Uloric] 40 mg PO DAILY 01/15/24 [History] Aspirin 81 mg PO DAILY #30 tab 01/18/24 [Rx] Dapagliflozin Propanediol [Farxiga] 10 mg PO DAILY #30 tab 01/18/24 [Rx] Ascorbic Acid [Vitamin C] 500 mg PO DAILY 05/06/24 [History] Cholecalciferol [Vitamin D3 (25 Mcg = 1000 Iu)] 25 mcg PO DAILY 05/06/24 [History] Atorvastatin [Lipitor] 80 mg PO DAILY #60 tab 05/08/24 [Rx] Isosorbide Mononitrate ER [Imdur] 30 mg PO DAILY #60 tab 05/08/24 [Rx] Losartan [Cozaar] 25 mg PO DAILY #60 tab 05/08/24 [Rx] Clopidogrel [Plavix] 75 mg PO DAILY 30 Days #30 tab 05/19/24 [Rx] Furosemide [Lasix] 40 mg PO BID@0900,1600 30 Days #60 tab 05/19/24 [Rx] Potassium Chloride ER [K-Dur 20] 20 meq PO DAILY 30 Days #30 tab 06/19/24 [Rx] Follow up Appointment(s)/Referral(s): Matthew Clark MD [STAFF PHYSICIAN] - [address] [facility] [Primary Care Provider] - 06/23/24 1:00 pm Patient Instructions/Handouts: Heart Failure (DC), Coronary Intravascular Stent Placement (DC) Activity/Diet/Wound Care/Special Instructions: Activity: As tolerated. Take breaks as needed. Diet: Heart healthy and carb consistent diet. Avoid salts, or foods with hidden salts such as canned or boxed foods and frozen dinners. Extra salt makes your heart work harder and traps the fluid in your body for longer. Special Instructions: Weigh yourself every morning after you urinate. If you gain 3 pounds overnight or more than 5 pounds in one week, call your primary physician and scalp treatment specialist for guidance on your medications or they may want to see you in their office. Keep a daily log of your weights and be sure to bring with you at follow up visits with your PCP and scalp treatment specialist. You are being discharged home with home care including palliative care as we discussed. Take all of your medications as directed, especially your water pills. NEVER skip a dose. And remember to keep all of your doctor's appointments and follow- up as needed. Elevate your legs when you are not up moving around to help with circulation and prevent swelling. Compression stockings are also a great way to improve lower extremity circulation and prevent/improve lower extremity edema. Call your primary care provider and scalp treatment specialist if you notice any extra swelling in your legs, ankles, feet or abdomen, if you have a new dry cough, if your shortness of breath worsens with activity or at rest, or if you feel more fatigued. Thank you for allowing us to participate in your care, it was truly a pleasure having you for our patient!!! . Discharge Disposition: HOME WITH HOME HEALTH SERVICES
[2024-06-20] MEDS ORDERED: POTASSIUM CHLORIDE ER 20 MEQ TAB.ER PO SCH (09:00)
== END 2024-06-19 16:30 | disposition home health service (06) | DRG 323 ==
LOC: EC 10:04 → 3SCARD 11:57
PROVIDERS: ADMIT Student in an Organized Health Care Education/Training Program; ATTEND Student in an Organized Health Care Education/Training Program
PROC: 02F03ZZ Fragmentation in Coronary Artery, One Artery, Percutaneous Approach (ICD-10-PCS; principal; 2024-06-18 12:00)
PROC: B240ZZ3 Ultrasonography of Single Coronary Artery, Intravascular (ICD-10-PCS; principal; 2024-06-18 12:00)
PROC: 027034Z Dilation of Coronary Artery, One Artery with Drug-eluting Intraluminal Device, Percutaneous Approach (ICD-10-PCS; principal; 2024-06-18 12:00)
DX: I13.0 Hypertensive heart and chronic kidney disease with heart failure and stage 1 through stage 4 chronic kidney disease, or unspecified chronic kidney disease (principal); I50.23 Acute on chronic systolic (congestive) heart failure; N17.0 Acute kidney failure with tubular necrosis; I25.10 Atherosclerotic heart disease of native coronary artery without angina pectoris; E78.5 Hyperlipidemia, unspecified; N18.32 Chronic kidney disease, stage 3b; Z96.653 Presence of artificial knee joint, bilateral; I27.20 Pulmonary hypertension, unspecified; I08.3 Combined rheumatic disorders of mitral, aortic and tricuspid valves; R00.1 Bradycardia, unspecified; I25.5 Ischemic cardiomyopathy; Z79.02 Long term (current) use of antithrombotics/antiplatelets; Z79.82 Long term (current) use of aspirin; Z79.84 Long term (current) use of oral hypoglycemic drugs; Z79.899 Other long term (current) drug therapy; Z86.73 Personal history of transient ischemic attack (TIA), and cerebral infarction without residual deficits; Z87.891 Personal history of nicotine dependence
CPT/HCPCS: 36415; 71046; 80048; 80053; 81001; 83735; 83880; 84439; 84443; 84484; 85025; 85027; 85610; 85730; 92972; 92978; 93005; 93306; 94760; 96374; 99285